=== PATIENT | male | born 1965 | race Caucasian/White ===

== ENCOUNTER 2017-05-10 12:54 | Inpatient (IN) | payer OTHER ==
--- NOTE | 2017-05-10 14:53 | EDPHY ---
H & P Stated Complaint: chronic back pain /ruq abd pain Time Seen by Provider: 05/10/17 14:52 HPI/ROS: HPI: This is a 52-year-old male who presents with Chief Complaint: chronic back pain /ruq abd pain Location: Lumbar back, right upper quadrant Quality: Pain Duration: Several days Signs and Symptoms: No bleeding, + radiation, + numbness, no weakness, no tingling, no incontinence, + decreased range of motion, no swelling, + nausea, no vomiting, + indigestion, no diarrhea, no dysuria, no hematuria, no testicular /groin pain Timing: Acute on chronic Severity: Severe Context: Patient reports that he has chronic pain syndrome including chronic back pain presents today with worsening over the last month of lower back pain. He reports that he has not been able to hold his stool during the night for the last week and feels urinary urgency. He reports he is only able to stand on both legs for 10 min at a time before both his feet get numb. His pain is concentrated in the lower back midline; constant; severe; worse with extension and nonradiating in nature. He is followed by Dr. Viraj Barrientos outpatient was advised to come to the emergency room 1 week ago but patient did not come. He had an MRI on 03/27/17 that showed L4-L5 severe central canal stenosis secondary to large left paramedian disc herniation and bilateral facet arthropathy, L1-L2 small left paramedian disc herniation, extrusion, resulting in minimal central canal stenosis. L3-L4 with mild central canal stenosis secondary to small disc herniation. He also complains of right upper quadrant pain that is nonradiating in nature accompanied by nausea. He reports that he knows this is gallbladder is he is admitted 2 years ago for gallbladder infection treated with IV antibiotics but no surgery. Use was to follow up outpatient with surgery but never did. He has a history of indigestion. Has not eaten today. Reports he has a high pain tolerance Modifying Factors: Regular medications Comment: ROS: see HPI Constitutional: No fever, no chills, no weight loss Eyes: No blurred vision Respiratory: No shortness of breath, no cough Cardiovascular: No chest pain Gastrointestinal: No nausea, no vomiting no diarrhea Genitourinary: No dysuria Extremities: No myalgias Neurologic: No weakness, no numbness Skin: No rashes Hematologic: No bruising, no bleeding MEDICAL/SURGICAL/SOCIAL HISTORY: Medical/surgical history: ERCP x2, TRAE 9th cranial nerve, R breast benign lumpectomy, L inguinal hernia repair, hypothyroid, hyperlipidemia, LEAH [end] glosso phayngeal pain/trigeminal neuralgia/herniated disc back issues Social history: . CONSTITUTIONAL: Well-developed well-nourished adult white male, nontoxic in appearance, awake and alert, no obvious distress HEENT: Atraumatic and normocephalic. Dry oral mucosa noted. NECK: supple, no midline tenderness, No meningismus. Cardiovascular: Normal S1/S2, regular rate, regular rhythm, without murmur rub or gallop. PULMONARY/CHEST: Symmetrical and nontender. no crepitus. Clear to auscultation bilaterally. Good air movement. No accessory muscle usage. ABDOMEN: Soft, nondistended, right upper quadrant moderate tenderness, no ecchymosis. No organomegaly. No peritoneal signs. PELVIC: no pain with rocking; bilateral hips flexion 125 degrees, extension 30 degrees, with no pain internal rotation and no pain external rotation. BACK: No midline tenderness, no paraspinous spasm, deep tendon reflexes 2/2, moderate pain with straight leg raise RECTAL: Good sphincter tone, light brown stool in vault, no external hemorrhoids , no fissures, no palpable masses, guaiac negative EXTREMITIES: 2/2 pulses, no deformities, no clubbing, no cyanosis or edema. NEUROLOGICAL: no focal neuro deficits. GCS 15. Light touch sensation intact. SKIN: Warm and dry, no erythema. no rash. Good capillary refill. Source: Patient Exam Limitations: No limitations - Personal History Current Tetanus/Diphtheria Vaccine: Yes - Medical/Surgical History Hx Asthma: No Hx Chronic Respiratory Disease: No Hx Diabetes: No Hx Cardiac Disease: No Hx Renal Disease: No Hx Cirrhosis: No Hx Alcoholism: No Hx HIV/AIDS: No Hx Splenectomy or Spleen Trauma: No Other PMH: ERCP x2, TRAE 9th cranial nerve, R breast benign lumpectomy, L inguinal hernia repair, hypothyroid, hyperlipidemia, LEAH [end] glosso phayngeal pain/trigeminal neuralgia/herniated disc back issues - Social History Smoking Status: Never smoked Constitutional: Initial Vital Signs Temperature (C) 36.6 C 05/10/17 13:08 Heart Rate 91 05/10/17 13:08 Respiratory Rate 18 05/10/17 13:08 Blood Pressure 122/81 H 05/10/17 13:08 O2 Sat (%) 93 05/10/17 13:08 O2 Delivery Mode Room Air Allergies/Adverse Reactions: No Known Allergies Allergy (Verified 05/10/17 13:04) Home Medications: Medication Instructions Recorded Acetaminophen [Tylenol 325mg (*)] 650 mg PO Q4 PRN #0 tab 09/14/15 Ascorbic Acid [Vitamin C 500 mg 500 mg PO DAILY 09/14/15 (*)] Aspirin [Aspirin 325 mg (*)] 325 mg PO HS 09/14/15 Benzocaine [Hurricaine [place] 57 GM 1 spr IH PRN PRN 09/14/15 (*)] Bifidobacterium Infantis [Align] 4 mg PO DAILY 09/14/15 Cyanocobalamin [Vitamin B12 (*)] 1,000 mcg PO DAILY 09/14/15 DULoxetine [Cymbalta 60 MG (*)] 60 mg PO HS 09/14/15 Ezetimibe [Zetia 10 MG (*)] 10 mg PO HS 09/14/15 Ibuprofen [Motrin (*)] 400 mg PO BID PRN 09/14/15 Ketamine Nasal [place] 100mg/Ml 1 spray IH PRN PRN 09/14/15 Levothyroxine [Synthroid 50 mcg 50 mcg PO DAILY06 09/14/15 (*)] Lubiprostone [Amitiza 24 mcg (*)] 24 mcg PO HS 09/14/15 Methadone HCl [Methadone HCl 10 mg 10 mg PO TID 09/14/15 (*)] Naproxen Sodium [Aleve 220 MG (*)] 440 mg PO DAILY PRN 09/14/15 [place]-3 Fatty Acids/Fish Oil [Fish 1 each PO BID 09/14/15 Oil 1,000 mg Capsule] Omeprazole [Prilosec 20 mg] 20 mg PO DAILY 09/14/15 Phenol [Chloraseptic spray (*)] 1 spray PO PRN PRN 09/14/15 Polyethylene Glycol 3350 [Miralax 17 gm PO DAILY PRN 09/14/15 17 gm (*)] Reservatrol 250 Mg 1 dose PO HS 09/14/15 Rosuvastatin Calcium [Crestor 20mg 20 mg PO HS 09/14/15 (*)] Suvorexant [Belsomra] 20 mg PO HS 09/14/15 Testosterone IM [Testosterone 100 mg IM SA 09/14/15 100mg/ml IM inj (*)] amLODIPine BESYLATE/BENAZEPRIL 1 cap PO HS 09/14/15 [Lotrel 5/20 mg Cap (*)] Nucynta 05/10/17 Medical Decision Making - Diagnostics Imaging Results: Imaging Impressions Abdomen Ultrasound 05/10/17 15:01 Impression: 1. Gas noted in the gallbladder, which may represent emphysematous cholecystitis , although this was present in September 2015 and is, therefore, nonspecific. Recommend surgery consult and consider additional imaging with CT abdomen or HIDA scan. Positive ultrasound Orosco sign. 2. No cholelithiasis or biliary ductal dilation. 3. Please see above findings. Findings and recommendations discussed with Emergency Department physician, Nellie Fox PA-C at 1639 hours on May 10, 2017. Final report concurs with initial preliminary interpretation. ED Course/Re-evaluation: Labs, right upper quadrant ultrasound, IV fluids, IV medications ordered Given 2 L normal saline, IV Decadron, IV fentanyl 50 mcg with mild relief Mild leukocytosis and elevated LFTs. No signs of lactic acidosis. Urinalysis shows ketones but no signs of infection Called by Radiology ultrasound shows no gallbladder wall thickening, normal common bile duct at 4 mm but there is air within the gallbladder concerning for emphysematous cholecystitis. Chart review shows similar presentation of air in the gallbladder in 2016. History of multiple ERCPs. 1645: ED decision to consult. Spoke with Dr. Wood, who requests CT abdomen and pelvis scan for further evaluation. Guaiac negative No signs of neurovascular compromise/tenting of skin/compartment syndrome/ extremities and joints examined above and below area of concern and are neurovascularly intact. 1730: Reassessed patient reports that his pain is right upper quadrant as well as lower back is now 10/10 again; requesting more pain medication. IV Fentanyl 50 mcg given 1740: Spoke with Dr. Pa Slaughter, neurosurgery, regarding patient's lower back pain that is intractable with inability to stand for long periods of time and incontinence of stool at night. He will be happy to consult on the patient. 1750: Spoke with hospitalist, Dr. Ruano, kindly agrees to admit patient to med surg and provide further care. 1800: End of shift. Signed out to Dr. Martin pending results of CT scan. Patient will likely be admitted to the hospital with Neurosurgery and general surgery consult. Differential Diagnosis: Back pain including but not limited to muscular pain, herniated disc, spine fracture, intra-abdominal causes and urinary tract infection. Abdominal pain including but not limited to appendicitis, cholecystitis, gastritis and urinary tract infection. - Data Points Laboratory Results: Laboratory Results 05/10/17 15:13 05/10/17 15:13 05/10/17 05/10/17 05/10/17 16:30 16:10 15:13 WBC RBC Hgb Hct MCV MCH MCHC RDW Plt Count MPV Neut % (Auto) Lymph % (Auto) Johnson % (Auto) Eos % (Auto) Baso % (Auto) Nucleat RBC Rel Count Absolute Neuts (auto) Absolute Lymphs (auto) Absolute Monos (auto) Absolute Eos (auto) Absolute Basos (auto) Absolute Nucleated RBC Immature Gran % Immature Gran # VBG Lactic Acid Sodium 137 mEq/L mEq/L (134-144) Potassium 3.4 mEq/L L mEq/L (3.5-5.2) Chloride 94 mEq/L L mEq/L (97-110) Carbon Dioxide 27 mEq/l mEq/l (22-31) Anion Gap 16 mEq/L mEq/L (8-16) BUN 13 mg/dL mg/dL (7-23) Creatinine 0.8 mg/dL mg/dL (0.7-1.3) Estimated GFR > 60 Glucose 94 mg/dL mg/dL (70-100) Calcium 9.5 mg/dL mg/dL (8.5-10.4) Total Bilirubin 0.7 mg/dL mg/dL (0.1-1.4) Conjugated Bilirubin 0.3 mg/dL mg/dL (0.0-0.5) Unconjugated Bilirubin 0.4 mg/dL mg/dL (0.0-1.1) AST 99 IU/L H IU/L (17-59) ALT 156 IU/L H IU/L (21-72) Alkaline Phosphatase 136 IU/L H IU/L (38-126) Total Protein 7.4 g/dL g/dL (6.3-8.2) Albumin 4.5 g/dL g/dL (3.5-5.0) Lipase 40 IU/L IU/L (23-300) Urine Color MASON Urine Appearance CLEAR Urine pH 5.0 (5.0-7.5) Ur Specific Richardson 1.025 (1.002-1.030) Urine Protein NEGATIVE (NEGATIVE) Urine Ketones TRACE H (NEGATIVE) Urine Blood NEGATIVE (NEGATIVE) Urine Nitrate NEGATIVE (NEGATIVE) Urine Bilirubin NEGATIVE (NEGATIVE) Urine Urobilinogen 2.0 EU H EU (0.2-1.0) Ur Leukocyte Esterase NEGATIVE (NEGATIVE) Urine Glucose NEGATIVE (NEGATIVE) Stool Occult Bld Scrn NEGATIVE (NEGATIVE) 05/10/17 05/10/17 15:13 15:13 WBC 10.64 10^3/uL H 10^3/uL (3.80-9.50) RBC 4.47 10^6/uL 10^6/uL (4.40-6.38) Hgb 13.6 g/dL L g/dL (13.7-17.5) Hct 39.9 % L % (40.0-51.0) MCV 89.3 fL fL (81.5-99.8) MCH 30.4 pg pg (27.9-34.1) MCHC 34.1 g/dL g/dL (32.4-36.7) RDW 13.3 % % (11.5-15.2) Plt Count 210 10^3/uL 10^3/uL (150-400) MPV 9.6 fL fL (8.7-11.7) Neut % (Auto) 81.5 % H % (39.3-74.2) Lymph % (Auto) 9.1 % L % (15.0-45.0) Johnson % (Auto) 8.6 % % (4.5-13.0) Eos % (Auto) 0.3 % L % (0.6-7.6) Baso % (Auto) 0.2 % L % (0.3-1.7) Nucleat RBC Rel Count 0.0 % % (0.0-0.2) Absolute Neuts (auto) 8.68 10^3/uL H 10^3/uL (1.70-6.50) Absolute Lymphs (auto) 0.97 10^3/uL L 10^3/uL (1.00-3.00) Absolute Monos (auto) 0.91 10^3/uL H 10^3/uL (0.30-0.80) Absolute Eos (auto) 0.03 10^3/uL 10^3/uL (0.03-0.40) Absolute Basos (auto) 0.02 10^3/uL 10^3/uL (0.02-0.10) Absolute Nucleated RBC 0.00 10^3/uL 10^3/uL (0-0.01) Immature Gran % 0.3 % % (0.0-1.1) Immature Gran # 0.03 10^3/uL 10^3/uL (0.00-0.10) VBG Lactic Acid 1.9 mmol/L mmol/L (0.7-2.1) Sodium Potassium Chloride Carbon Dioxide Anion Gap BUN Creatinine Estimated GFR Glucose Calcium Total Bilirubin Conjugated Bilirubin Unconjugated Bilirubin AST ALT Alkaline Phosphatase Total Protein Albumin Lipase Urine Color Urine Appearance Urine pH Ur Specific Richardson Urine Protein Urine Ketones Urine Blood Urine Nitrate Urine Bilirubin Urine Urobilinogen Ur Leukocyte Esterase Urine Glucose Stool Occult Bld Scrn Medications Given: Discontinued Medications Dexamethasone (Decadron Injection) 10 mg IVP EDNOW ONE Stop: 05/10/17 15:01 Last Admin: 05/10/17 15:26 Dose: 10 mg Fentanyl (Sublimaze) 50 mcg IVP EDNOW ONE Stop: 05/10/17 15:01 Last Admin: 05/10/17 15:25 Dose: 50 mcg Sodium Chloride (Ns) 1,000 mls @ 0 mls/hr IV EDNOW ONE; Wide Open PRN Reason: Protocol Stop: 05/10/17 15:01 Last Admin: 05/10/17 15:25 Dose: 1,000 mls Sodium Chloride (Ns) 1,000 mls @ 0 mls/hr IV EDNOW ONE; Wide Open PRN Reason: Protocol Stop: 05/10/17 15:01 Last Admin: 05/10/17 15:24 Dose: 1,000 mls Departure - Departure Disposition: [facility] In[facility] Acute Clinical Impression: Herniation of left side of L4-L5 intervertebral disc, Central stenosis of spinal canal, Emphysematous cholecystitis
[2017-05-10] MEDS ORDERED: DEXAMETHASONE 10 MG/ML VIAL IVP ONE (15:00)
[2017-05-10] MEDS ORDERED: NS 1,000 ML IV ONE ×2 (15:00)
[2017-05-10] MEDS ORDERED: fentaNYL 100 MCG/2 ML INJ IVP ONE ×2 (15:00→19:31)
[2017-05-10 15:21] LABS: % IMMATURE GRANULYOCYTES 0.3 % (0.0-1.1); ABSOLUTE IMMATURE GRANULOCYTES 0.03 10^3/uL (0.00-0.10); ADD DIFF? NO; ADD MORPH? NO; ADD SCAN? NO; ATYPICAL LYMPHOCYTE FLAG 0 (0-99); FRAGMENT RBC FLAG 0 (0-99); HEMATOCRIT 39.9 % (40.0-51.0); HEMOGLOBIN 13.6 g/dL (13.7-17.5); LEFT SHIFT FLG 0 (0-99); LIPEMIA HEMOLYSIS FLAG 90 (0-99); MEAN CELL HEMOGLOBIN 30.4 pg (27.9-34.1); MEAN CELL HEMOGLOBIN CONCENTR. 34.1 g/dL (32.4-36.7); MEAN CELL VOLUME 89.3 fL (81.5-99.8); MEAN PLATELET VOLUME 9.6 fL (8.7-11.7); PLATELET CLUMPS FLAG 10 (0-99); PLATELET COUNT 210 10^3/uL (150-400); RED BLOOD CELL COUNT 4.47 10^6/uL (4.40-6.38); RED CELL DISTRIBUTION WIDTH 13.3 % (11.5-15.2)
[2017-05-10 15:36] LABS: ALANINE AMINOTRANSFERASE 156 IU/L (21-72); ALBUMIN 4.5 g/dL (3.5-5.0); ALKALINE PHOSPHATASE 136 IU/L (38-126); ANION GAP 16 mEq/L (8-16); ASPARTATE AMINOTRANSFERASE 99 IU/L (17-59); BILIRUBIN,TOTAL 0.7 mg/dL (0.1-1.4); BILIRUBIN-CONJUGATED 0.3 mg/dL (0.0-0.5); BILIRUBIN-UNCONJUGATED 0.4 mg/dL (0.0-1.1); CALCIUM 9.5 mg/dL (8.5-10.4); CARBON DIOXIDE 27 mEq/l (22-31); CHLORIDE 94 mEq/L (97-110); CREATININE 0.8 mg/dL (0.7-1.3); GLOMERULAR FILTRATION RATE > 60; GLUCOSE 94 mg/dL (70-100); POTASSIUM 3.4 mEq/L (3.5-5.2); SODIUM 137 mEq/L (134-144); TOTAL PROTEIN 7.4 g/dL (6.3-8.2)
[2017-05-10 16:22] LABS: COLOR AMBER; LEUKOCYTE ESTERASE,URINE NEGATIVE (NEGATIVE); NITRITE,URINE NEGATIVE (NEGATIVE)
[2017-05-10] MEDS ORDERED: IOPAMIDOL (ISOVUE-300) 100 ML BTL ONE (17:05)
[2017-05-10] MEDS ORDERED: fentaNYL 100 MCG/2 ML INJ IVP PRN (17:42)
[2017-05-10] MEDS ORDERED: POLYETHYLENE GLYCOL 3350 17 GM PKT PO PRN (18:25)
--- NOTE | 2017-05-10 18:29 | PDCONSULT ---
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 His abdominal symptoms and imaging findings support a diagnosis of ascending cholangitis. I will admit for IV antibiotics and request a hospitalist consult. Full note to follow. Daniela Wood MD, FACS
[2017-05-10] MEDS ORDERED: fentaNYL 100 MCG/2 ML INJ ONE (19:30)
[2017-05-10] MEDS: AMPICILLIN/SULBACTAM 3 GM in NS 100 ML IV SCH (21:02)
[2017-05-10] MEDS: POTASSIUM Cl (KCl) 10 MEQ in NS 100 ML IV SCH ×2 (21:02→22:01)
[2017-05-10] MEDS ORDERED: METHADONE HCL 1 MG/ML SYR PO SCH (22:00)
[2017-05-10] MEDS: DULoxetine 60 MG CAP PO SCH (22:01)
[2017-05-10] MEDS: TAPENTADOL HCL 50 MG TAB PO SCH (22:01)
[2017-05-10] MEDS: METHADONE HCL 10 MG TAB PO SCH (22:01)
[2017-05-10] MEDS: AMLODIPINE BESYLATE 5/BENAZEPRIL 20MG 1 EACH CAP PO SCH (22:02)
[2017-05-10] MEDS: LUBIPROSTONE 24 MCG CAP PO SCH (22:02)
[2017-05-10] MEDS: EZETIMIBE 10 MG TAB PO SCH (22:02)
[2017-05-10] MEDS ORDERED: KETAMINE 100 MG/ML IH PRN (22:21)
[2017-05-10] MEDS ORDERED: PHENOL 177 ML THROAT SPRAY PO PRN (22:21)
[2017-05-10] MEDS: LR 1,000 ML IV SCH (22:21)
[2017-05-10] MEDS ORDERED: ONDANSETRON DISINTEGRATING 4 MG TAB PO PRN (22:21)
[2017-05-10] MEDS: HYDROmorphONE/DILAUDID 1 MG/ML INJ IVP PRN (22:22)
[2017-05-10] MEDS ORDERED: clonazePAM 1 MG TAB PO SCH (22:30)
[2017-05-10] MEDS ORDERED: GABAPENTIN 300 MG CAP PO SCH (22:30)
[2017-05-10] MEDS: PANTOPRAZOLE SODIUM 40 MG TAB PO SCH (22:40)
--- NOTE | 2017-05-10 23:52 | GHP ---
[f rep st] HISTORY AND PHYSICAL DATE OF ADMISSION: 05/10/2017 CHIEF COMPLAINT: Abdominal pain. HISTORY OF PRESENT ILLNESS: The patient is a 52-year-old male, who presents with worsening right upp er quadrant abdominal pain, fever, and chills. The patient has a complicated history with a complex regional pain syndrome that he has had for many years. He has undergone several endoscopic retrograd e cholangiopancreatographies and sphincterotomies by Dr. Nir Regalado for biliary disease. The res ults of these procedures are not available to review at the time of admission. The patient presented in 2015 with similar symptoms and was found to have biliary air and no evidence of obstruction, was managed with antibiotics and recovered uneventfully without surgery. After he was brought to the [facility] today, he was seen by Dr. Martin and an abdominal ultrasound was performed, which showed ai r in the gallbladder and surgical consultation was requested. PAST MEDICAL HISTORY: Significant for a remote laparoscopic left inguinal hernia repair by myself ap proximately 10 years ago. Multiple ERCPs and sphincterotomies by Dr. Regalado. He is a nonsmoker. Denies alcohol use. Patient has a history of spinal stenosis and has seen Dr. Bocanegra who recommended surgery if he develo ped incontinence or motor weakness. CURRENT MEDICATIONS: Which are managed not only by his primary care physician, Dr. Lira but by [facility] pain doctor include aspirin 325 mg at bedtime, Hurricaine spray p.r.n., Align probiotics 1 capsule p.o. q. day, vitamin B12 1000 mcg p.o. q. day, diclofenac sodium 75 mg p.o. b.i.d., ibuprofen 400 mg p.o. b.i.d., Naprosyn sodium 440 mg p.o. q. day, omega-3 fatty acids, Belsomra (suvorexant) 20 mg p.o . q.h.s., testosterone 100 mg IM q. week, amlodipine/benazepril 5/20 one p.o. q. day, Klonopin 2 mg q .h.s., clonidine 0.1 mg p.o. t.i.d., Cymbalta 60 mg p.o. q.h.s., Zetia 10 mg p.o. q.h.s., gabapentin 300 mg p.o. t.i.d., ketamine nasal spray 1 spray in each naris p.r.n., levothyroxine 50 mcg p.o. q. d ay, Amitiza 24 mcg p.o. b.i.d., melatonin/pyridoxine 1 p.o. q.h.s., methadone 10 mg p.o. three t.i.d. , Zofran 4 mg p.o. t.i.d., Protonix 40 mg p.o. q. day, phenol/Chloraseptic spray p.r.n., MiraLAX 17 g p.o. q. day, Nucynta 100 mg p.o. q.i.d., trazodone 150 mg p.o. q.h.s. ALLERGIES: The patient is allergic to bupropion, carbamazepine, corticosteroids/glucocorticoids. SOCIAL HISTORY: Patient is . He is not currently working. FAMILY HISTORY: Noncontributory. REVIEW OF SYSTEMS: Patient denies any hematemesis, melena, hematochezia. He denies history of jaund ice. There is no prior history of gallstones. Records of his endoscopic procedures are not availabl e for review at this time. No history of deep venous thrombosis. PHYSICAL EXAMINATION: GENERAL: Reveals a chronically ill-appearing, middle-aged male, who is in mod erate distress and reports withdrawal symptoms from his narcotics. VITAL SIGNS: Blood pressure is 1 20/80, pulse is 84, respirations 16, temperature is 36.8, O2 saturation is 96% on room air. HEENT: There is no scleral icterus. No adenopathy. LUNGS: Clear to auscultation. HEART: Regular in rate and rhythm. There is no tenderness to palpation of the chest wall or of the cervical or thoracic spi ne. ABDOMEN: Exquisitely tender in the right upper quadrant and along the entire right side of the abdomen. The left side of the abdomen is soft and nontender. Bowel sounds are hypoactive and presen t. There is no palpable mass, hernia, hepatosplenomegaly. RECTAL: Exam is not repeated. EXTREMITI ES: Warm and dry with symmetrical deep tendon reflexes, no pitting edema. LABORATORY STUDIES: WBC is 10.6, hemoglobin 13.6, hematocrit 39.9, platelets 210,000. Sodium was 13 7, potassium 3.4, chloride 94, bicarb 27, BUN 13, creatinine 0.8. AST 99, ALT 156, alkaline phosphat ase 136, lipase 40. TSH was 1.150. Urinalysis showed trace ketones, specific gravity was 1.025. St ool was negative for occult blood. Lactic acid was 1.9. CT scan and ultrasound reviewed and show a decompressed gallbladder with air in the gallbladder as well as air within the biliary tree. No ston es were identified. No common bile duct dilatation is observed. The pancreas appears unremarkable. There was no free fluid. No free air. No pathologic calcifications. IMPRESSION: 1. Pneumobilia with elevation of liver enzymes and alkaline phosphatase associated with mild leukocy tosis. Clinical findings are compatible with ascending cholangitis. 2. Chronic regional pain syndrome, on multiple medications. 3. Status post laparoscopic left inguinal hernia repair without evidence of recurrence. 4. Multiple allergies. 5. Mild hypertension. RECOMMENDATIONS: I discussed the findings with the patient. Recommended admission for intravenous f luids, antibiotics, and observation. Laparoscopic cholecystectomy could be performed and may provide some relief of his symptoms, though would not reduce the future chances of ascending cholangitis. T he patient would like to avoid surgery at this time if possible and I will continue to monitor his sy mptoms. If he shows evidence of worsening sepsis despite intravenous antibiotics, would reconsider s urgery at this time. I have requested hospitalist consultation. Dr. Karime Ruano will be seeing th e patient to assist in the management of his complex regional pain syndrome. Copy requested to: Dr. Nir Regalado /[id number]/MODL
[2017-05-11] MEDS ORDERED: fentaNYL 100 MCG/2 ML INJ IVP ONE (00:12)
[2017-05-11] MEDS: AMPICILLIN/SULBACTAM 3 GM in NS 100 ML IV SCH ×4 (02:46→21:40)
[2017-05-11] MEDS: HYDROmorphONE/DILAUDID 1 MG/ML INJ IVP PRN ×4 (02:46→20:27)
--- NOTE | 2017-05-11 04:34 | GCON ---
[f rep st] CONSULTATION MEDICINE CONSULTATION CHIEF COMPLAINT: Right upper quadrant abdominal pain. REASON FOR CONSULTATION: Patient was admitted by the Surgery Service and Medicine has been consulted to assist with his chronic pain management. HISTORY OF PRESENT ILLNESS: The patient is a 52-year-old male with a history of chronic regional pain syndrome and continuous opioid dependence as well as chronic low back pain and hypothyroidism who presents to the emergency department with right upper quadrant pain. He has had several ERCPs in the past for gallbladder sludge. He has been previously admitted with similar problems, most recently in September of 2015. He states he had increasing right upper quadrant pain which began about 3 days ago. Today, the pain became more severe and he developed nausea but denies vomiting. He has had no diarrhea. His CRPS is localized to the entire right side of his body. He says he always gets a burning pain in his stomach after eating, so it is hard to assess if he has increased right upper quadrant pain related to meals. He denies fevers or chills. In the emergency department, an abdominal ultrasound showed gas in the gallbladder possibly representing emphysematous cholecystitis though it was noted to be unchanged from September 2015. He then underwent a CT abdomen and pelvis which showed minimal pneumobilia and minimal gas in the gallbladder and common bile duct but no evidence of obstruction. A Surgery consult was obtained in the emergency department and the patient is admitted for IV antibiotics for presumed cholangitis. PAST MEDICAL/SURGICAL HISTORY: 1. Chronic pain secondary to chronic regional pain syndrome. 2. Chronic continuous opioid dependence, on methadone and Nucynta. 3. History of trigeminal neuralgia. 4. History of glossopharyngeal neuralgia. 5. Hypothyroidism. 6. Hyperlipidemia. 7. History of gallbladder sludge with multiple ERCPs. 8. Inguinal hernia repair. 9. Decompression of the 9th cranial nerve. MEDICATIONS: Please see IDOMOTICS for completed outpatient medication list. ALLERGIES: No known drug allergies. SOCIAL HISTORY: The patient lives independently with his . He denies alcohol or tobacco use. FAMILY HISTORY: Reviewed and noncontributory. REVIEW OF SYSTEMS: A 10-point review of systems was performed and is negative as per HPI. OBJECTIVE: VITAL SIGNS: Temperature is 36.6, blood pressure 136/95, heart rate 96, respiratory rate 18, he is 94% on room air. GENERAL: The patient is awake, alert, oriented, in no acute distress. HEENT: Head is atraumatic, normocephalic. Pupils equal, round, and reactive to light. Extraocular movements intact. Oropharynx is clear. Mucous membranes are dry. NECK: Supple. There is no JVD. HEART: Regular rate and rhythm. LUNGS: Clear to auscultation bilaterally. ABDOMEN: Soft, nondistended. He has mild right upper quadrant tenderness to palpation with no peritoneal signs. No rebound, rigidity or guarding. EXTREMITIES: Without cyanosis, clubbing, or edema. NEUROLOGIC: Grossly nonfocal. LABORATORY DATA: CBC reveals a white blood cell count of 10.6 with 81.5% neutrophils. Lactic acid is 1.9. Complete metabolic panel is remarkable for a potassium of 3.4, chloride 94, AST 99, ALT 156, alkaline phosphatase 136. Lipase is normal. Urinalysis is negative. Abdomen ultrasound and CT are performed with results described above. ASSESSMENT AND PLAN: The patient is a 52-year-old male with history of chronic regional pain syndrome with chronic continuous opioid dependence and acute on chronic right upper quadrant abdominal pain who is admitted to the hospital for presumed cholangitis. 1. Ascending cholangitis. The patient has had multiple prior ERCPs and this likely explains his minimal pneumobilia. I discussed the case with Dr. Lazar, General Surgery, who will admit pt for IV antibiotics and defer surgery, though it is possible he may require a cholecystectomy. 2. Chronic regional pain syndrome with chronic continuous opioid dependence. Will continue patient on his outpatient methadone, Nucynta and ketamine nasal spray. Add p.r.n. IV Dilaudid given the acute nature of his chronic pain. It sounds as though he has had his opioid doses reduced (used to use 1,600 mcg fentanyl TID per his report). Cont prn Clonidine for withdrawal symptoms. 3. Multi-level lumbar disc herniation with canal stensos. Continue Gabapentin , will up-titrate dose. Neurosurgery to consult, saw pt in ED. 4. Hypothyroidism. Check a TSH and plan to continue his levothyroxine. 5. Hypertension. We will continue his amlodipine and p.r.n. clonidine. 6. Depression and anxiety. Continue Cymbalta. 7. Deep venous thrombosis prophylaxis. The patient is moderate risk. We will give Lovenox. CODE STATUS: Patient is full code. DISPOSITION: Patient is admitted to inpatient status. I anticipate he will require greater than 48 hours hospitalization for ongoing management of his acute cholangitis. /[id number]/MODL [facility]
[2017-05-11 06:22] LABS: % IMMATURE GRANULYOCYTES 0.4 % (0.0-1.1); ABSOLUTE IMMATURE GRANULOCYTES 0.03 10^3/uL (0.00-0.10); ADD DIFF? NO; ADD MORPH? NO; ADD SCAN? NO; ATYPICAL LYMPHOCYTE FLAG 0 (0-99); FRAGMENT RBC FLAG 0 (0-99); HEMATOCRIT 33.8 % (40.0-51.0); HEMOGLOBIN 11.3 g/dL (13.7-17.5); LEFT SHIFT FLG 0 (0-99); LIPEMIA HEMOLYSIS FLAG 80 (0-99); MEAN CELL HEMOGLOBIN 30.1 pg (27.9-34.1); MEAN CELL HEMOGLOBIN CONCENTR. 33.4 g/dL (32.4-36.7); MEAN CELL VOLUME 90.1 fL (81.5-99.8); PLATELET CLUMPS FLAG 0 (0-99); PLATELET COUNT 180 10^3/uL (150-400); RED BLOOD CELL COUNT 3.75 10^6/uL (4.40-6.38); RED CELL DISTRIBUTION WIDTH 13.3 % (11.5-15.2)
[2017-05-11 06:42] LABS: ALANINE AMINOTRANSFERASE 116 IU/L (21-72); ALBUMIN 3.1 g/dL (3.5-5.0); ALKALINE PHOSPHATASE 96 IU/L (38-126); AMYLASE 32 IU/L (30-110); ANION GAP 10 mEq/L (8-16); ASPARTATE AMINOTRANSFERASE 68 IU/L (17-59); BILIRUBIN,TOTAL 0.2 mg/dL (0.1-1.4); BILIRUBIN-UNCONJUGATED 0.2 mg/dL (0.0-1.1); CALCIUM 8.9 mg/dL (8.5-10.4); CARBON DIOXIDE 27 mEq/l (22-31); CHLORIDE 103 mEq/L (97-110); CREATININE 0.7 mg/dL (0.7-1.3); GLOMERULAR FILTRATION RATE > 60; GLUCOSE 113 mg/dL (70-100); POTASSIUM 4.5 mEq/L (3.5-5.2); SODIUM 140 mEq/L (134-144); TOTAL PROTEIN 5.3 g/dL (6.3-8.2)
[2017-05-11] MEDS: LEVOTHYROXINE 50 MCG TAB PO SCH (06:44)
[2017-05-11] MEDS: TAPENTADOL HCL 50 MG TAB PO SCH ×4 (06:44→20:24)
[2017-05-11] MEDS ORDERED: KETOROLAC 30 MG/1 ML SDV IVP ONE (07:35)
--- NOTE | 2017-05-11 07:45 | SOAPPROG ---
NELI Progress Note Assessment/Plan: Assessment:1. ascending cholangitis, clinically improving with IV Unasyn I discussed the Ej the anatomy and physiology of the biliary tract during a 30 minute discussion of his symptoms using anatomic drawings. Removal of the gallbladder alone will not reduce the future risk of cholangitis. Whether or not it would improve his pain would remain to be seen after surgery. There is no urgency to the decision for surgery at this time 2. chronic regional pain syndrome Ej is concerned that he will no longer have a pain doctor after today and is asking for more pain medications I ordered Toradol as he has not received NSAIDS since admission and will discuss with his PCP Dr. Lira and the Hospitalist service. Case management consult would be appropriate 05/11/17 07:40 Subjective: severe pain, wants more pain meds nocturnal stool incontinence Objective: Vital Signs Temp Pulse Resp BP Pulse Ox 36.7 C 69 20 98/62 L 98 05/11/17 00:00 05/11/17 04:00 05/11/17 04:00 05/11/17 04:00 05/11/17 04:00 Laboratory Results 05/11/17 05:30 05/11/17 05:30 05/10/17 05/11/17 05/12/17 05:59 05:59 05:59 Intake Total 2000 Balance 1999 - Pending Discharge Pending Discharge Within 24 Hours: Yes Pending Discharge Date: 05/12/17 Pending Discharge Time: 11:00 Physical Exam - Physical Exam General Appearance: moderate distress Abdomen: normal bowel sounds, soft, other (diffusely tender right side with voluntary guarding) Male Genitalia: deferred Rectal: decreased tone, other (normal sphincter/sensation intact) Neuro/Psych: alert, depressed affect ICD10 Worksheet Patient Problems: Problems Problem Status Onset Central stenosis of spinal canal Acute Emphysematous cholecystitis Acute Herniation of left side of L4-L5 intervertebral disc Acute Abdominal pain Acute Fever Acute Tachycardia Acute Transaminitis Acute
[2017-05-11] MEDS: GABAPENTIN 300 MG CAP PO SCH ×2 (08:01→14:04)
[2017-05-11] MEDS: PANTOPRAZOLE SODIUM 40 MG TAB PO SCH (08:27)
[2017-05-11] MEDS: METHADONE HCL 10 MG TAB PO SCH ×3 (08:27→23:19)
[2017-05-11] MEDS: ENOXAPARIN 40 MG/0.4 ML SYR SC SCH (08:28)
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
[2017-05-11] MEDS: LUBIPROSTONE 24 MCG CAP PO SCH ×2 (09:36→20:26)
--- NOTE | 2017-05-11 10:14 | ASMTCMCOM ---
CM Note CM Note Notes: Pt. is a 52-year-old man admitted with chronic back pain and right upper quadrant abdominal pain. Pt. w/ hx. complex regional pain syndrome. On nasal Ketamine and methadone for pain per hospitalist. Per hospitalist, Pt. critical of the [facility] and Pt. is not accepting his own responsibility for his care. Hospitalist asked SWer not to speak w/ Pt. Per hospitalist, Pt. states he will "find [my] own pain solutions in [place]". Anticipate independent d/c when ready. Date Signed: 05/11/2017 10:13 AM Electronically Signed By:Alie Rivero LCSW
--- NOTE | 2017-05-11 12:16 | PDMN ---
Medical Necessity Medical necessity: Pt meets INPT criteria per MD and [facility] Gallbladder or Bile Duct Inflammation (est. LOS >2 MN for ongoing eval/mgmt of ascending cholangitis with hx multiple prior ERCPs, elevated liver enzymes, chronic regional pain syndrome, multi-level lumbar disc herniation with canal stenosis per H&P and progress note).
--- NOTE | 2017-05-11 12:29 | HOSPPROG ---
Hospitalist Progress Note Assessment/Plan: 52y male with c/o pain. First encounter, chart reviewed. D/W MARTÍNEZ. Assessment: #ascending cholangitis improving with IV Unasyn cont supportive care Plan per surgery # chronic regional pain syndrome on Methadone and ketamine will not receive pain med prescriptions at time of DC questioned about follow up pt states he can find a pain doctor after DC educated about withdrawl encouraged to follow up with current pain will not add more pain meds to his profile pt says PCP Dr. Lira will give him prescriptions reviewed with SW #Spine stenosis appreciate NSG consult no intervention at this time # Hypothyroid cont home meds # Dispo likely 1-2 days per surgery recs Subjective: C/O pain. Aggitated. Objective: Vital Signs Temp Pulse Resp BP Pulse Ox 36.5 C 74 16 95/55 L 98 05/11/17 11:15 05/11/17 11:15 05/11/17 11:15 05/11/17 11:15 05/11/17 11:15 Laboratory Results 05/11/17 05:30 05/11/17 05:30 05/10/17 05/11/17 05/12/17 05:59 05:59 05:59 Intake Total 2000 Balance 1999 - Physical Exam Constitutional: no apparent distress, appears nourished, uncomfortable Eyes: PERRL, anicteric sclera, EOMI Ears, Nose, Mouth, Throat: moist mucous membranes, hearing normal, ears appear normal Cardiovascular: regular rate and rhythym, No JVD, No edema Respiratory: no respiratory distress, no rales or rhonchi, reduced air movement Gastrointestinal: normoactive bowel sounds, tenderness, No ascites Skin: warm, normal color, No erythema Musculoskeletal: normal joint ROM, no joint effusions, generalized weakness Neurologic: AAOx3 Psychiatric: not encephalopathic, anxious, poor insight, poor judgement ICD10 Worksheet Patient Problems: Problems Problem Status Onset Transaminitis Acute Fever Acute Tachycardia Acute Abdominal pain Acute Herniation of left side of L4-L5 intervertebral disc Acute Central stenosis of spinal canal Acute Emphysematous cholecystitis Acute
[2017-05-11] MEDS: LR 1,000 ML IV SCH (16:57)
[2017-05-11] MEDS: KETOROLAC 30 MG/1 ML SDV IVP PRN ×2 (17:39→23:27)
[2017-05-11] MEDS: EZETIMIBE 10 MG TAB PO SCH (20:25)
[2017-05-11] MEDS: DULoxetine 60 MG CAP PO SCH (20:25)
[2017-05-11] MEDS ORDERED: GABAPENTIN 300 MG CAP PO SCH (21:00)
[2017-05-11] MEDS ORDERED: RESERVATROL PO SCH (21:00)
[2017-05-11] MEDS ORDERED: clonazePAM 1 MG TAB PO SCH (21:00)
[2017-05-11] MEDS: AMLODIPINE BESYLATE 5/BENAZEPRIL 20MG 1 EACH CAP PO SCH (21:17)
[2017-05-12] MEDS: HYDROmorphONE/DILAUDID 1 MG/ML INJ IVP PRN ×2 (00:49→06:04)
[2017-05-12] MEDS: AMPICILLIN/SULBACTAM 3 GM in NS 100 ML IV SCH (03:35)
[2017-05-12 05:16] LABS: BILIRUBIN,TOTAL 0.2 mg/dL (0.1-1.4); BILIRUBIN-CONJUGATED 0.1 mg/dL (0.0-0.5); BILIRUBIN-UNCONJUGATED 0.1 mg/dL (0.0-1.1); TOTAL PROTEIN 5.1 g/dL (6.3-8.2)
[2017-05-12] MEDS: TAPENTADOL HCL 50 MG TAB PO SCH (06:04)
[2017-05-12] MEDS: LEVOTHYROXINE 50 MCG TAB PO SCH (06:04)
[2017-05-12 06:07] VITALS: O2SAT 99
[2017-05-12 07:39] VITALS: BP 101/64; PULSE 85; RESP 14; TEMP 97.4
[2017-05-12] MEDS: GABAPENTIN 300 MG CAP PO SCH (08:27)
[2017-05-12] MEDS: METHADONE HCL 10 MG TAB PO SCH (08:27)
[2017-05-12] MEDS: PANTOPRAZOLE SODIUM 40 MG TAB PO SCH (08:28)
[2017-05-12] MEDS: KETOROLAC 30 MG/1 ML SDV IVP PRN (08:28)
[2017-05-12] MEDS: ENOXAPARIN 40 MG/0.4 ML SYR SC SCH (08:28)
[2017-05-12] MEDS ORDERED: AMOXICILLIN/CLAVULANATE POT 875/125 MG TAB PO SCH (09:00)
[2017-05-12] MEDS: LUBIPROSTONE 24 MCG CAP PO SCH (09:03)
--- NOTE | 2017-05-12 09:27 | PDDCSUM ---
Discharge Summary Discharge Summary: Ej remains in pain but is afebrile and holding down liquids adequately. His Lfts continue to trend towards normal/his abdomen is soft and without distention. He has no focal RUQ tenderness. He has an appointment with a pain specialist at 11:15 and would like to be discharged this morning. Imp: ascending cholangitis-clinically improving chronic regional pain syndrome with narcotic dependence spinal stenosis Rec: oral Augmentin x 10 days FU as outpatient return to hospital for emesis/fever/jaundice FU my office [address] Bocanegra one month Daniela Wood MD, FACS
--- NOTE | 2017-05-12 11:27 | ASDISCHSUM ---
Discharge Information Plan Status:Home with No Needs Medically Cleared to Leave: Discharge Date:05/12/2017 10:31 AM CM D/C Disposition:Home, Routine, Self-Care ADT D/C Disposition:Home, Routine, Self-Care Projected Discharge Date:05/12/2017 10:31 AM Transportation at D/C: Discharge Delay Reason: Follow-Up Date:05/12/2017 10:31 AM Discharge Slot: Final Diagnosis: Placement Information Patient Contact Information Contact Name:OCREEMADELINE Relationship: Address:[address] City:[place] Alternate Phone: [facility] Code:[place] [address] Email: Financial Information Financial Class:HMO and PPO Plans Primary Plan Desc:[facility] Primary Plan Number:[id number] Secondary Plan Desc: Secondary Plan Number: Assessment Information LACE LACE Acuity / Level of Care Answers: Was the patient admitted to hospital via the emergency department? Yes: Emergency dept visits in Answers: 1 last 6 months Score: 4 Date Signed: 05/10/2017 06:20 PM Electronically Signed By:Simi Moeller RN [facility] CM Progress Note CM Note CM Note Notes: Pt. is a 52-year-old man admitted with chronic back pain and right upper quadrant abdominal pain. Pt. w/ hx. complex regional pain syndrome. On nasal Ketamine and methadone for pain per hospitalist. Per hospitalist, Pt. critical of the [facility] and Pt. is not accepting his own responsibility for his care. Hospitalist asked SWer not to speak w/ Pt. Per hospitalist, Pt. states he will "find [my] own pain solutions in [place]". Anticipate independent d/c when ready. Date Signed: 05/11/2017 10:13 AM Electronically Signed By:Alie Rivero LCSW Case Management Discharge Plan Note Case Management Discharge Discharge Order Complete? Answers: Yes Patient to Obtain Answers: Independently Medications Discharge Comments Notes: Pt. d/c'ed independently today. Intervention Information
--- NOTE | 2017-05-12 13:32 | HOSPPROG ---
Hospitalist Progress Note Assessment/Plan: 52y male with c/o pain. First encounter, chart reviewed. D/W MARTÍNEZ. Assessment: #ascending cholangitis improving with IV Unasyn # chronic regional pain syndrome on Methadone and ketamine will not receive pain med prescriptions at time of DC will follow up with current pain Dr. today pt says PCP Dr. Lira reviewed with SW #Spine stenosis appreciate NSG consult no intervention at this time # Hypothyroid cont home meds # Dispo home today Subjective: Still c/o abd pain. Objective: Vital Signs Temp Pulse Resp BP Pulse Ox 36.3 C 85 14 101/64 99 05/12/17 07:36 05/12/17 07:36 05/12/17 07:36 05/12/17 07:36 05/12/17 07:36 Laboratory Results 05/11/17 05:30 05/11/17 05:30 05/11/17 05/12/17 05/13/17 05:59 05:59 05:59 Intake Total 1999 1500 Balance 1999 1500 - Physical Exam Constitutional: appears nourished, chronically ill appearing Eyes: PERRL, anicteric sclera Ears, Nose, Mouth, Throat: moist mucous membranes, hearing normal Cardiovascular: No JVD, No edema Respiratory: no respiratory distress, reduced air movement Gastrointestinal: tenderness, No ascites Skin: warm, normal color Musculoskeletal: normal joint ROM, no joint effusions Neurologic: AAOx3 Psychiatric: not anxious, poor insight, poor judgement ICD10 Worksheet Patient Problems: Problems Problem Status Onset Transaminitis Acute Fever Acute Tachycardia Acute Abdominal pain Acute Herniation of left side of L4-L5 intervertebral disc Acute Central stenosis of spinal canal Acute Emphysematous cholecystitis Acute
[2017-05-12] MEDS ORDERED: SUVOREXANT 20 MG PO SCH (21:00)
== END 2017-05-12 10:31 | disposition home or self-care (01) | DRG 445 ==
LOC: F3E 19:45
PROVIDERS: ADMIT Hospitalist; ATTEND Surgery
DX: K83.0 Cholangitis (principal); F11.20 Opioid dependence, uncomplicated; G89.4 Chronic pain syndrome; M51.26 Other intervertebral disc displacement, lumbar region; M48.061 Spinal stenosis, lumbar region without neurogenic claudication; R15.9 Full incontinence of feces; E03.9 Hypothyroidism, unspecified; E78.5 Hyperlipidemia, unspecified; G50.0 Trigeminal neuralgia; G52.1 Disorders of glossopharyngeal nerve; F41.8 Other specified anxiety disorders; G47.33 Obstructive sleep apnea (adult) (pediatric)
CPT/HCPCS: 96374; J0295; J1100; J1170; J1650; J1885; J3010; Q9967

== ENCOUNTER 2017-06-09 20:14 | Observation (INO) | payer OTHER ==
[2017-06-09] MEDS ORDERED: HYDROmorphONE/DILAUDID 1 MG/ML INJ IVP ONE (20:47)
[2017-06-09] MEDS ORDERED: ONDANSETRON 4 MG/2 ML VIAL IVP ONE (20:47)
--- NOTE | 2017-06-09 20:48 | EDPHY ---
General - History Smoking Status: Never smoked Narrative: CHIEF COMPLAINT: Right upper quadrant abdominal pain HISTORY OF PRESENT ILLNESS: Patient presents with complaints of right upper quadrant abdominal pain. This started earlier today. Severe, 10/10 pain in the right upper quadrant. Does not radiate. Minimal improvement with rest and lying down. Worsens when twisting to his left. No fever or chills. Some nausea but no vomiting. No diarrhea constipation. Patient was seen here for the same complaint on the 10 of May. He was admitted with diagnosis of ascending cholangitis. He was discharged home on May 12 without oral antibiotics for remaining 4 days. He said his symptoms did improve to near resolution after that until the recent return of pain. He said that he is unable to follow up with the surgeon or primary care physician "because they're out partying or something." He says that he contacted their office today but was unable to be seen. REVIEW OF SYSTEMS: Ten systems reviewed and are negative unless otherwise noted in the HPI PCP: mirror specialist SPECIALISTS: Dr. Wood, general surgery PAST MEDICAL HISTORY: Chronic regional pain syndrome, glossopharyngeal neuralgia, atypical trigeminal neuralgia PAST SURGICAL HISTORY: None SOCIAL HISTORY: Nonsmoker. No alcohol or drug use FAMILY HISTORY: Noncontributory EXAMINATION General Appearance: Alert, no distress Head: normocephalic, atraumatic Eyes: Pupils equal and round, no conjunctival pallor or injection ENT, Mouth: Mucous membranes moist. Airway is widely patent Neck: Normal inspection, supple, non-tender Respiratory: Lungs are clear to auscultation Cardiovascular: Regular rate and rhythm. No murmur. Gastrointestinal: Abdomen is soft and nondistended. There is significant tenderness in right upper quadrant. There is guarding of the right upper quadrant. No tympany. No right CVA tenderness. Back: non-tender, no bony abnormalities Neurological: GCS 15. A&O, nonfocal Skin: Warm and dry, no rash. No petechiae or purpura Extremities: Nontender, no pedal edema. The extremities spontaneously and symmetrically. Psychiatric: Mood and affect normal DIFFERENTIAL DIAGNOSES: Including but not limited to ascending cholangitis, sepsis, cholelithiasis, cholecystitis, colitis MDM: 8:48 p.m. Recurrence of right upper quadrant abdominal pain that is described as the same as when he had ascending cholangitis 1 month ago. He is borderline febrile but not tachycardic or tachypneic. Laboratory studies have been ordered. I discussed with Dr. Simpson, he would like the patient have blood cultures and lactic acid drawn. This has been ordered. I have also ordered pain medication IV fluid. Ultrasound of the right upper quadrant ordered. 9:30 p.m. Case discussed with Dr. Simpson. He has evaluated the patient. He feels the patient will need a CT scan of the abdomen pelvis if the ultrasound is unremarkable. Plans for admission to the hospital. 9:50 p.m. Case discussed with radiologist Dr. Peña. Ultrasound reveals sludge but no pneumobilia or thickening of the wall. Unremarkable exam. I have ordered CT scan of the abdomen and pelvis. Further pain medication has been administered. 10:50 p.m. Notified by radiologist Dr. Peña. CT scan of the abdomen pelvis does not reveal any acute findings. 10:55 p.m. I re-evaluated the patient. His pain is not improved despite multiple rounds of pain medication and intranasal ketamine. Patient will not be able to be discharged home due to intractable pain. I discussed with Dr. Simpson and he agrees with the plan. I will contact the hospitalist for admission. 11:00 p.m. Discussed with hospitalist Dr. Lundy. She will admit the patient to her service. She requested observation bed. He is admitted stable condition. SUPERVISION: Patient was evaluated and examined in conjunction with my secondary supervising physician as documented. We have both examined the patient. (Foreign Mendoza) Medical Decision Making: PHYSICIAN DOCUMENTATION: The patient was evaluated and managed by the Physician Water Safety Teacher and myself. I have reviewed the chart and agree with the findings and plan of care as documented. In addition, I examined the patient myself at 2145. History confirmed as the patient says he feels just like his previous hospitalization for ascending cholangitis. Physical findings as follows: Right upper quadrant abdominal tenderness. Plan for CT scanning, labs, IV pain medication. After lab and imaging, does not appear to have cholangitis or acute infection but has intractable pain, admit for symptom control and further evaluation. I am the secondary supervising physician. (Nelson Simpson) - Diagnostics Imaging Results: Imaging Impressions Abdomen Ultrasound 06/09/17 20:47 Impression: Mild sludge in the gallbladder. No evidence for cholelithiasis or cholecystitis. Results called and discussed with Foreign Mendoza PA-C, on June 09, [address] 06/09/17 21:52 Impression: No evidence for acute intraabdominal or pelvic abnormality. Chronic findings, as above. Results called and discussed with Foreign Mendoza PA-C, on June 09, 2017 at 2252. - Objective Vital Signs: Initial Vital Signs Temperature (C) 37.9 C 06/09/17 20:31 Heart Rate 96 06/09/17 20:31 Respiratory Rate 18 06/09/17 20:31 Blood Pressure 150/95 H 06/09/17 20:31 O2 Sat (%) 93 06/09/17 20:31 O2 Delivery Mode Room Air O2 (L/minute) 2 Allergies/Adverse Reactions: bupropion [From Wellbutrin] Allergy (Intermediate, Unverified 05/10/17 22:25) carbamazepine [From Tegretol] Allergy (Intermediate, Unverified 05/10/17 22:25) Corticosteroids (Glucocorticoids) Allergy (Unknown, Unverified 05/10/17 22:25) Home Medications: Medication Instructions Recorded Ascorbic Acid [Vitamin C 500 mg 500 mg PO DAILY 09/14/15 (*)] Aspirin [Aspirin 325 mg (*)] 325 mg PO HS 09/14/15 Benzocaine [Hurricaine [place] 57 GM 1 spr IH PRN PRN 09/14/15 (*)] Cyanocobalamin [Vitamin B12 (*)] 1,000 mcg PO DAILY 09/14/15 DULoxetine [Cymbalta 60 MG (*)] 60 mg PO HS 09/14/15 Ezetimibe [Zetia 10 MG (*)] 10 mg PO HS 09/14/15 Ketamine Nasal [place] 100mg/Ml 1 spray IH PRN PRN 09/14/15 Levothyroxine [Synthroid 50 mcg 50 mcg PO DAILY06 09/14/15 (*)] Methadone HCl [Methadone HCl 10 mg 10 mg PO TID 09/14/15 (*)] [place]-3 Fatty Acids/Fish Oil [Fish 2,000 each PO BID 09/14/15 Oil 1,000 mg Capsule] Phenol [Chloraseptic spray (*)] 1 spray PO PRN PRN 09/14/15 Polyethylene Glycol 3350 [Miralax 17 gm PO DAILY PRN 09/14/15 17 gm (*)] Reservatrol 250 Mg 1 dose PO HS 09/14/15 Testosterone IM [Testosterone 100 mg IM SA 09/14/15 100mg/ml IM inj (*)] amLODIPine BESYLATE/BENAZEPRIL 1 cap PO DAILY 09/14/15 [Lotrel 5/20 mg Cap (*)] Diclofenac Sodium [Voltaren 75 MG 75 mg PO BID 05/10/17 (*)] Gabapentin [Neurontin 300 MG (*)] 300 mg PO TID 05/10/17 Lubiprostone [Amitiza 24 mcg (*)] 24 mcg PO BID 05/10/17 Melatonin/Pyridoxine HCl (B6) 1 each PO HS 05/10/17 [Melatonin 10 mg Tablet] Ondansetron Odt [Zofran Odt 4 mg 4 mg PO TID PRN 05/10/17 (*)] Pantoprazole Sodium [Protonix 40mg 40 mg PO DAILY 05/10/17 (*)] Tapentadol HCl [Nucynta] 100 mg PO QID 05/10/17 clonazePAM [Klonopin] 2 mg PO HS 05/10/17 traZODone [traZODone 150MG (*)] 150 mg PO HS 05/10/17 Gabapentin [Neurontin 300 MG (*)] 600 mg PO HS cap 05/12/17 Laboratory Results: Laboratory Results 06/09/17 20:43 06/09/17 20:43 06/09/17 06/09/17 06/09/17 20:43 20:43 20:43 WBC 7.35 10^3/uL 10^3/uL (3.80-9.50) RBC 4.74 10^6/uL 10^6/uL (4.40-6.38) Hgb 14.8 g/dL g/dL (13.7-17.5) Hct 42.1 % % (40.0-51.0) MCV 88.8 fL fL (81.5-99.8) MCH 31.2 pg pg (27.9-34.1) MCHC 35.2 g/dL g/dL (32.4-36.7) RDW 13.2 % % (11.5-15.2) Plt Count 233 10^3/uL 10^3/uL (150-400) MPV 9.6 fL fL (8.7-11.7) Neut % (Auto) 77.3 % H % (39.3-74.2) Lymph % (Auto) 14.1 % L % (15.0-45.0) [place] % (Auto) 8.4 % % (4.5-13.0) Eos % (Auto) 0.0 % L % (0.6-7.6) Baso % (Auto) 0.1 % L % (0.3-1.7) Nucleat RBC Rel Count 0.0 % % (0.0-0.2) Absolute Neuts (auto) 5.67 10^3/uL 10^3/uL (1.70-6.50) Absolute Lymphs (auto) 1.04 10^3/uL 10^3/uL (1.00-3.00) Absolute Monos (auto) 0.62 10^3/uL 10^3/uL (0.30-0.80) Absolute Eos (auto) 0.00 10^3/uL L 10^3/uL (0.03-0.40) Absolute Basos (auto) 0.01 10^3/uL L 10^3/uL (0.02-0.10) Absolute Nucleated RBC 0.00 10^3/uL 10^3/uL (0-0.01) Immature Gran % 0.1 % % (0.0-1.1) Immature Gran # 0.01 10^3/uL 10^3/uL (0.00-0.10) VBG Lactic Acid 1.3 mmol/L mmol/L (0.7-2.1) Sodium 142 mEq/L mEq/L (134-144) Potassium 4.3 mEq/L mEq/L (3.5-5.2) Chloride 103 mEq/L mEq/L (97-110) Carbon Dioxide 23 mEq/l mEq/l (22-31) Anion Gap 16 mEq/L mEq/L (8-16) BUN 8 mg/dL mg/dL (7-23) Creatinine 0.9 mg/dL mg/dL (0.7-1.3) Estimated GFR > 60 Glucose 103 mg/dL H mg/dL (70-100) Calcium 9.8 mg/dL mg/dL (8.5-10.4) Total Bilirubin 0.8 mg/dL mg/dL (0.1-1.4) Conjugated Bilirubin 0.4 mg/dL mg/dL (0.0-0.5) Unconjugated Bilirubin 0.4 mg/dL mg/dL (0.0-1.1) AST 27 IU/L IU/L (17-59) ALT 37 IU/L IU/L (21-72) Alkaline Phosphatase 78 IU/L IU/L (38-126) Total Protein 7.5 g/dL g/dL (6.3-8.2) Albumin 4.7 g/dL g/dL (3.5-5.0) Lipase 52 IU/L IU/L (23-300) Medications Given: Hydrocodone Bitart/Acetaminophen ([place] 5/325) 1 - 2 tab PO Q4HRS PRN PRN Reason: Pain, Moderate Able to Take PO Stop: 06/20/17 00:24 Last Admin: 06/10/17 01:57 Dose: 2 tab Gabapentin (Neurontin) 600 mg PO HS [facility] Stop: 12/07/17 03:59 Last Admin: 06/10/17 04:36 Dose: 600 mg Hydromorphone HCl (Dilaudid) 0.5 - 1 mg IVP Q4HRS PRN PRN Reason: Pain, Severe Unable to Take PO Stop: 06/20/17 00:24 Last Admin: 06/10/17 01:57 Dose: 1 mg Lactated Ringer's (Lr) 1,000 mls @ 100 mls/hr IV CONT [facility] Stop: 12/07/17 01:29 Last Admin: 06/10/17 02:04 Dose: 1,000 mls Lorazepam (Ativan) 0.5 - 1 mg PO Q8HRS PRN PRN Reason: Anxiety, Able to Take PO Stop: 12/07/17 00:24 Last Admin: 06/10/17 01:58 Dose: 1 mg Lubiprostone (Amitiza) 24 mcg PO BID [facility] Stop: 12/07/17 03:44 Last Admin: 06/10/17 04:36 Dose: 24 mcg Methadone HCl (Methadone Hcl) 10 mg PO QID [facility] Stop: 06/20/17 03:44 Last Admin: 06/10/17 06:23 Dose: Not Given Discontinued Medications Hydromorphone HCl (Dilaudid) 1 mg IVP EDNOW ONE Stop: 06/09/17 20:48 Last Admin: 06/09/17 21:08 Dose: 1 mg Sodium Chloride (Ns) 1,000 mls @ 0 mls/hr IV EDNOW ONE; Wide Open PRN Reason: Protocol Stop: 06/09/17 20:58 Last Admin: 06/09/17 21:08 Dose: 1,000 mls Lidocaine (Lidocaine 2% Jelly) 1 oswaldo TP EDNOW ONE Stop: 06/09/17 23:08 Last Admin: 06/09/17 23:09 Dose: 15 ml Ondansetron HCl (Zofran) 4 mg IVP EDNOW ONE Stop: 06/09/17 20:48 Last Admin: 06/09/17 21:08 Dose: 4 mg Departure - Departure Disposition: [facility] Inpatient Acute Clinical Impression: Right upper quadrant abdominal pain, Intractable abdominal pain Condition: Good
[2017-06-09 20:54] LABS: PLATELET COUNT 233 10^3/uL (150-400)
[2017-06-09] MEDS ORDERED: NS 1,000 ML IV ONE (20:57)
[2017-06-09] MEDS ORDERED: IOPAMIDOL (ISOVUE-300) 100 ML BTL ONE (22:23)
[2017-06-09] MEDS ORDERED: LIDOCAINE 2% VISCOUS 15 ML UDCUP ONE (23:06)
[2017-06-09] MEDS ORDERED: LIDOCAINE 2% JELLY 5 ML TUBE TP ONE (23:07)
[2017-06-10] MEDS ORDERED: PROMETHAZINE HCL 25 MG/ML INJ IVP PRN (00:25)
[2017-06-10] MEDS ORDERED: ONDANSETRON 4 MG/2 ML VIAL IVP PRN (00:25)
[2017-06-10] MEDS ORDERED: ACETAMINOPHEN 325 MG TAB PO PRN (00:25)
[2017-06-10] MEDS ORDERED: LORazepam 0.5 MG TAB PO PRN (00:25)
[2017-06-10] MEDS: HYDROmorphONE/DILAUDID 1 MG/ML INJ IVP PRN ×3 (01:57→21:42)
[2017-06-10] MEDS: HYDROCODONE/APAP 5/325 TAB PO PRN ×2 (01:57→08:35)
[2017-06-10] MEDS: LR 1,000 ML IV SCH ×3 (02:04→21:43)
[2017-06-10] MEDS ORDERED: BENZOCAINE UNIT DOSE SPRAY HURRICAINE MM PRN ×2 (03:33→13:19)
[2017-06-10] MEDS ORDERED: KETAMINE NASAL SPRAY NS PRN (03:49)
[2017-06-10] MEDS ORDERED: GABAPENTIN 300 MG CAP PO SCH (04:00)
[2017-06-10] MEDS: LUBIPROSTONE 24 MCG CAP PO SCH ×3 (04:36→21:20)
[2017-06-10] MEDS: METHADONE HCL 10 MG TAB PO SCH ×5 (04:38→21:47)
[2017-06-10 04:57] LABS: PLATELET COUNT 185 10^3/uL (150-400)
--- NOTE | 2017-06-10 05:45 | GHP ---
[f rep st] HISTORY AND PHYSICAL DATE OF ADMISSION: 06/09/2017 SOURCE: Patient provides history, appears reliable, his EMR from recent hospital stay was also reviewed and case discussed with ED provider. CHIEF COMPLAINT: Right upper quadrant abdominal pain. HISTORY OF PRESENT ILLNESS: This is a pleasant 52-year-old gentleman with a longstanding history of chronic pain issues including chronic regional pain syndrome with majority of symptoms on the right, history of glossopharyngeal neuralgia, history of trigeminal neuralgia, history of ascending cholangitis with multiple ERCPs and sphincterotomy, chronic back pain on chronic opiate dependence therapy who presents to the emergency department today with complaints of progressively worsening right upper quadrant abdominal pain. The patient was hospitalized on 05/10/2017, with concerns for ascending cholangitis. Patient with history of multiple ERCPs. He had pneumobilia, elevated LFTs and a mildly increased white blood cell count at that time and was placed on antibiotics. Plan was to manage conservatively with antibiotics until patient could be treated and follow up in clinic with Dr. Wood. Patient reports that his appointment is scheduled for several weeks out and his pain was increasingly worsening. He states that the right upper quadrant abdominal pain never resolved entirely after discharge. However, today he also developed some nausea, which was new and had a presyncopal or syncopal episode at home secondary to severity of pain per his report. Patient denies any melena, hematochezia. He does have history of opiate induced constipation for which he takes Amitiza. He denies any lower abdominal pain at this time. Right upper quadrant abdominal pain is constant and despite his multiple narcotics, pain medications have not been improving his symptoms. Patient denies any fevers or chills. No vomiting. Patient complaining of severe 10/10 pain, worse with movement or palpation. REVIEW OF SYSTEMS: GENERAL: Negative for fevers, chills. Denies any rashes or sores. ENT: No congestion, sore throat. EYES: No acute changes in vision or ocular pain. Patient does wear glasses. CV: No chest pain, palpitations. RESPIRATORY: No shortness of breath or cough. GI: As per HPI. : Patient denies any hematuria but reports more recently slowly improving dysuria at the end of his stream. He denies any discharge or STI exposures. MUSCULOSKELETAL: Chronic pain as above. PSYCH: Patient reports worsening depressive symptoms without any SI or HI related to increasing pain. NEURO: Patient with a chronic right-sided headache related to his neuralgia. He denies any new numbness or tingling or focal deficits. Remainder ROS negative except as noted above. ALLERGIES: Wellbutrin, steroids, carbamazepine. PAST MEDICAL HISTORY: Significant for chronic regional pain syndrome, glossopharyngeal neuralgia, atypical trigeminal neuralgia, benign essential hypertension, depression, anxiety, chronic opiate dependence with methadone, Nucynta, recent use of ketamine nasal spray, hypothyroidism, hypertension, hyperlipidemia, history of gallbladder sludge with history of ascending cholangitis, lumbar disk herniation with canal stenosis. Patient reports he had a full cardiac evaluation given significant family history including stress testing, which was negative. PAST SURGICAL HISTORY: Significant for multiple ERCPs and sphincterotomies. Denies any history of stent placement. Patient's primary spring repairer helper hand is Dr. Morris. Patient also with inguinal hernia repair and decompression of the 9th cranial nerve. FAMILY HISTORY: Mother with hypertension. Brother, sisters also with hypertension. Father age 42 due to [place]. Paternal grandfather age 48 due to [place]. SOCIAL HISTORY: Patient is , lives with his . He does not smoke, drink, or utilize any drugs. He denies any previous history of tobacco use which is listed as a former use. CODE STATUS: Full patient's MD SAUCEDA, his . PHYSICAL EXAMINATION: VITAL SIGNS: Upon arrival to the emergency department, blood pressure 150/95, heart rate 96, respiratory rate 18, O2 saturation 93% on room air with a temperature of 37.9. Current vitals blood pressure 140/92, heart rate 55, respiratory rate 12, O2 sat is 100% on 2 L by nasal cannula with a temperature 36.6. GENERAL: No acute distress. Patient is lying quietly in bed. He does appear fatigued, slightly sedated but lays very still in the bed. He wakes easily to his name. HEAD: Normocephalic, atraumatic. EYES: Extraocular muscles grossly intact. Pupils equal, round, slightly decreased reactivity to light bilaterally but symmetric. No scleral icterus or conjunctival injection. Patient is wearing glasses. ENT: Mucous membranes appear dry. No nasal discharge. No pharyngeal erythema. Dentition intact. NECK: Supple. Trachea midline. CV: Regular rate and rhythm. Slightly bradycardic. No murmurs, rubs, or gallops appreciated. No chest wall tenderness to palpation. RESPIRATORY: Unlabored breathing. Lungs clear to auscultation bilaterally. No wheezes, rales, or rhonchi. ABDOMEN: Obese, soft , mildly distended. Patient with significant tenderness to palpation in the right upper quadrant with positive Orosco sign. Minimal lower abdominal pain. Hypoactive bowel sounds. : No Walker in place. No suprapubic tenderness to palpation. EXTREMITIES: Patient without any cyanosis, clubbing, or edema. 2+ pedal pulses. Strength grossly intact in upper and lower extremities. Moves all extremities voluntarily. NEURO: Grossly nonfocal. No facial drooping. He moves all extremities. PSYCH: Patient does appear a little bit anxious. He is quite concerned regarding his pain management options and focused on his hypoglossive neuralgia, requesting use of his Hurricaine spray and ice chips or iced foods. Patient does become increasingly distressed with right upper quadrant abdominal exam and an RN notes that patient did fall asleep shortly after my visit. LABORATORY STUDIES: WBC 7.35, H and H 14.8 and 42.1, MCV of 88.8, platelet count is 233, neutrophil percent 77.3; no bands. Next, VBG lactic acid 1.3. Sodium 142, potassium 4.3, chloride 103, CO2 is 23, anion gap 16, BUN is 8, creatinine 0.9, GFR greater than 60, glucose 103, calcium 9.8, total protein 7.5 , albumin is 4.7, ALT is 37, AST is 27, alkaline phosphatase is 78, lipase is 52. Blood cultures x2 are pending. Abdominal ultrasound report reviewed, showing mild sludge in the gallbladder. No evidence of cholelithiasis or cholecystitis. Liver measuring 14 cm, normal in echogenicity without focal lesion. No evidence of intrahepatic biliary duct dilation. Right kidney without mass or hydronephrosis. Common bile duct measuring 4.6 mm. No significant free fluid. CT abdomen and pelvis: Image report reviewed. Negative for acute intraabdominal pelvic abnormality. Chronic findings including fatty liver infiltration; subcentimeter hypodense lesion in the dome of the liver probably representing hepatic cyst that is stable; gallbladder is unremarkable; pancreas unremarkable; spleen unremarkable; hypodense liver lesion in the superior pole of the left kidney, probably representing renal cortical cyst that is stable. No significant abdominal lymphadenopathy. No evidence diverticulitis. No significant free fluid in the pelvis. No evidence of bladder calculus. Degenerative changes lumbar spine is stable. ASSESSMENT AND PLAN: A pleasant 52-year-old gentleman with history of chronic regional pain syndrome, hypoglossal neuralgia, chronic right upper quadrant abdominal pain with recent history of treated suspected ascending cholangitis, who presents with complaints of acute on chronic right upper quadrant abdominal pain. 1. Abdominal pain. Pain will be difficult to control. I tried to review with the patient that there will be a limit to how much we will be able to control patient's reported pain given he is already on high doses of multiple narcotics and ketamine and advised that we will need to monitor his respiratory and cardiac status closely. If there is any evidence of hypoxia, hypotension more compromised then will need to focus on supportive measures and hold off on further narcotics. Patient without any evidence of recurrent cholangitis, no cholecystitis, no acute abdomen at this time. His laboratory studies are not indicative of any evidence of obstruction as LFTs are normal. He has no leukocytosis. Blood cultures are pending x2, and lactate is within normal limits. I briefly reviewed case with on-call surgeon as patient is afebrile and laboratory studies are normal. Also, agree that no indication for antibiotics at this time. The patient is followed by Dr. Wood and will try to reach out to his service in the morning to assist with further recommendations and evaluation. 2. Chronic pain syndrome. Will plan to resume patient's home medications including methadone, ketamine, gabapentin, Cymbalta, and again monitoring closely for any vital signs change. Will add Narcan p.r.n. for respiratory depression. Patient is on a continuous pulse ox. 3. Hypoglossal neuralgia. Supportive care. Hurricane spray and gabapentin. Pain medications as above. Will advance diet to sips and chips at this time pending surgery assessment in the morning. 4. Benign essential hypertension. Blood pressure is slightly elevated. Patient's heart rate has come down with what appears to be improved pain control as patient does rest in between visits from myself and the nurse. The patient's blood pressure is slightly elevated currently and likely related to pain. Continue with management as noted above. At baseline, patient is on amlodipine and will resume once pharmacy has had a chance to complete med reconciliation. Will resume the rest of his home medications. 5. Gallbladder sludge. No evidence of obstruction. Surgery consult as noted above. 6. Chronic back pain as noted above. 7. Anxiety, depression. Ativan p.r.n. Continue Cymbalta and trazodone. 8. Fluid, electrolyte, nutrition: Patient will receive IV fluids overnight. Will advance diet from n.p.o. to sips and chips for now. Electrolytes will be monitored and replaced if needed. 9. Prophylaxis. SCDs. Holding off on any anticoagulation pending surgical evaluation in the morning. 10. Code status is full. Patient desires his to act as proxy if needed. DISPOSITION: Patient has been admitted to observation on the medical floor. He is currently in ICU overflow and will monitor him on a pulse ox only at this time. /[id number]/MODL MTDD
[2017-06-10] MEDS: GABAPENTIN 300 MG CAP PO SCH ×4 (08:35→21:25)
[2017-06-10] MEDS ORDERED: DULoxetine 60 MG CAP PO SCH (09:00)
[2017-06-10] MEDS ORDERED: TAPENTADOL HCL 50 MG TAB PO PRN (10:56)
[2017-06-10] MEDS ORDERED: HYDROmorphONE/DILAUDID 1 MG/ML INJ IVP ONE (10:57)
[2017-06-10] MEDS ORDERED: POLYETHYLENE GLYCOL 3350 17 GM PKT PO PRN (12:51)
[2017-06-10] MEDS ORDERED: PHENOL 177 ML THROAT SPRAY PO PRN (12:51)
[2017-06-10] MEDS ORDERED: KETAMINE EACHNARE PRN ×2 (12:51→13:42)
[2017-06-10] MEDS ORDERED: BENZOCAINE 57 G CAN HURRICAINE MM PRN (12:51)
[2017-06-10] MEDS ORDERED: NON-FORMULARY NEW DRUG (Clonazepam [Klonopin] 2 MG) PO SCH (13:00)
[2017-06-10] MEDS: clonazePAM 1 MG TAB PO SCH ×2 (13:38→21:24)
[2017-06-10] MEDS: LEVOTHYROXINE 50 MCG TAB PO SCH (13:38)
[2017-06-10] MEDS: KETOROLAC 30 MG/1 ML SDV IVP PRN ×2 (14:10→22:14)
[2017-06-10] MEDS ORDERED: NON-FORMULARY NEW DRUG (Gabapentin [Neurontin] 600 MG) PO SCH (16:00)
[2017-06-10] MEDS ORDERED: diphenhydrAMINE 25 MG CAP PO PRN (16:18)
[2017-06-10] MEDS ORDERED: Suvorexant [Belsomra] 20 MG PO PRN (16:18)
[2017-06-10] MEDS ORDERED: BISACODYL 5 MG EC TAB PO PRN (16:18)
[2017-06-10] MEDS ORDERED: NALOXONE IJ PRN (16:18)
[2017-06-10] MEDS ORDERED: [UNRECOGNIZED DRUG - OTHER] IJ PRN (16:18)
--- NOTE | 2017-06-10 17:07 | HOSPPROG ---
Hospitalist Progress Note Assessment/Plan: 52 yo M w glossopharyngeal neuralgia, complex regional pain syndrome and now abd pain abd pain: ct images (interp by me) unremarkable + bowel sounds considered PUD, has not been taking NSAIDS as on list, o melena, will hold off on endoscopy for now LFT's and lipase unremarkable add lidocaine patch complex regional pain syndrome: continue meds proph: lmwh risk: high Subjective: claims to be very uncomfortable, pulse 53. amenable to trying lidocaine patch. no melena Objective: Vital Signs Temp Pulse Resp BP Pulse Ox 36.5 C 75 15 116/69 94 06/10/17 14:47 06/10/17 14:47 06/10/17 14:47 06/10/17 14:47 06/10/17 14:47 Laboratory Results 06/10/17 04:45 06/10/17 04:45 06/09/17 06/10/17 06/11/17 05:59 05:59 05:59 Intake Total 422 Balance 422 - Physical Exam Constitutional: no apparent distress, appears nourished Eyes: PERRL, anicteric sclera Ears, Nose, Mouth, Throat: moist mucous membranes, hearing normal Cardiovascular: regular rate and rhythym, no murmur, rub, or gallop Respiratory: no respiratory distress, no rales or rhonchi Gastrointestinal: normoactive bowel sounds, soft, non-tender abdomen Genitourinary: no bladder fullness, No gibbons in urethra Skin: warm, normal color Musculoskeletal: full muscle strength, no muscle tenderness Neurologic: AAOx3 ICD10 Worksheet Patient Problems: Problems Problem Status Onset Intractable abdominal pain Acute Right upper quadrant abdominal pain Acute Abdominal pain Acute Central stenosis of spinal canal Acute Emphysematous cholecystitis Acute Fever Acute Herniation of left side of L4-L5 intervertebral disc Acute Tachycardia Acute Transaminitis Acute
[2017-06-10] MEDS: CYANO/VITAMIN B12 1000 MCG TAB PO SCH (17:42)
[2017-06-10] MEDS: DICLOFENAC SODIUM 75 MG TAB PO SCH ×2 (17:42→22:07)
[2017-06-10] MEDS: BACLOFEN 20 MG TAB PO PRN ×2 (17:42→22:09)
[2017-06-10] MEDS: AMLODIPINE BESYLATE 5/BENAZEPRIL 20MG 1 EACH CAP PO SCH (17:43)
[2017-06-10] MEDS: DULoxetine 60 MG CAP PO SCH (17:48)
[2017-06-10] MEDS: LIDOCAINE 5% 1 EA PATCH TD SCH (17:52)
[2017-06-10] MEDS ORDERED: MELATONIN PO SCH (21:00)
[2017-06-10] MEDS ORDERED: ASCORBIC ACID 500 MG TAB PO SCH (21:00)
[2017-06-10] MEDS ORDERED: NON-FORMULARY NEW DRUG (Cholecalciferol (Vitamin D3) [Vitamin D3] 5,000 UNIT) PO SCH (21:00)
[2017-06-10] MEDS ORDERED: EZETIMIBE 10 MG TAB PO SCH (21:00)
[2017-06-10] MEDS ORDERED: OMEGA 3 FATTY ACIDS PO SCH (21:00)
[2017-06-10] MEDS ORDERED: TESTOSTERONE 1% 5 GM GEL PKT TD SCH (21:00)
[2017-06-10] MEDS ORDERED: PYRIDOXINE HCL PO SCH (21:00)
[2017-06-10] MEDS ORDERED: PATCH REMOVAL 1 EA PATCH TD SCH (21:00)
[2017-06-10] MEDS ORDERED: ASPIRIN 325 MG TAB PO SCH (21:00)
[2017-06-10] MEDS ORDERED: RESVERATROL 250 MG PO SCH ×2 (21:00)
[2017-06-10] MEDS ORDERED: Bifidobacterium Infantis [Align] 4 MG PO SCH (21:00)
[2017-06-10] MEDS ORDERED: [UNRECOGNIZED DRUG - OTHER] PO SCH (21:00)
[2017-06-10] MEDS: CHOLECALCIFEROL VIT D3 2,000 UNITS TAB/CAP PO SCH (21:21)
[2017-06-10] MEDS: HYDROCORTISONE ACETATE 25 MG SUPP PR SCH (21:29)
[2017-06-10] MEDS: OMEGA-3 FATTY ACIDS 1,000 MG CAP PO SCH (21:30)
[2017-06-11] MEDS: LR 1,000 ML IV SCH ×2 (04:08→07:46)
[2017-06-11] MEDS: KETOROLAC 30 MG/1 ML SDV IVP PRN (04:08)
[2017-06-11] MEDS: LEVOTHYROXINE 50 MCG TAB PO SCH (07:34)
[2017-06-11] MEDS: METHADONE HCL 10 MG TAB PO SCH (07:45)
[2017-06-11 08:06] VITALS: BP 125/85; PULSE 89; TEMP 97.8
[2017-06-11] MEDS: OMEGA-3 FATTY ACIDS 1,000 MG CAP PO SCH (08:40)
[2017-06-11] MEDS: AMLODIPINE BESYLATE 5/BENAZEPRIL 20MG 1 EACH CAP PO SCH (08:40)
[2017-06-11] MEDS: GABAPENTIN 300 MG CAP PO SCH (08:41)
[2017-06-11] MEDS: CHOLECALCIFEROL VIT D3 2,000 UNITS TAB/CAP PO SCH (08:41)
[2017-06-11] MEDS: CYANO/VITAMIN B12 1000 MCG TAB PO SCH (08:43)
[2017-06-11] MEDS: DULoxetine 60 MG CAP PO SCH (08:43)
[2017-06-11] MEDS: DICLOFENAC SODIUM 75 MG TAB PO SCH (08:44)
[2017-06-11] MEDS: clonazePAM 1 MG TAB PO SCH (08:44)
[2017-06-11] MEDS: LUBIPROSTONE 24 MCG CAP PO SCH (08:46)
[2017-06-11] MEDS: HYDROCORTISONE ACETATE 25 MG SUPP PR SCH (08:57)
[2017-06-11] MEDS: LIDOCAINE 5% 1 EA PATCH TD SCH (08:58)
[2017-06-11 08:59] VITALS: RESP 16; O2SAT 93
[2017-06-11] MEDS ORDERED: Meloxicam [Mobic] 15 MG PO SCH (09:00)
[2017-06-11] MEDS ORDERED: PANTOPRAZOLE SODIUM 40 MG TAB PO SCH (09:00)
[2017-06-11] MEDS ORDERED: Herbals/Supplements -Info Only PO SCH (09:00)
[2017-06-11] MEDS ORDERED: ENOXAPARIN 40 MG/0.4 ML SYR SC SCH (09:00)
--- NOTE | 2017-06-11 09:40 | ASMTCMCOM ---
CM Note CM Note Notes: 06/11/2017 Case Management Note Reviewed chart, including prior visits to [facility]. There are no case management d/c needs identified at this time. There are no PT or OT evals ordered at this time. Historically pt discharges without any needs with support from his . Case Management d/c poc: anticipating home independent with follow up as directed. Case Management available if needs change. Date Signed: 06/11/2017 09:40 AM Electronically Signed By:Jenna Stevenson RN
--- NOTE | 2017-06-11 09:54 | HOSPPROG ---
Hospitalist Progress Note Assessment/Plan: 52 yo M w glossopharyngeal neuralgia, complex regional pain syndrome and now abd pain abd pain: ct images (interp by me) unremarkable + bowel sounds considered PUD, has not been taking NSAIDS as on list, o melena, will hold off on endoscopy for now LFT's and lipase unremarkable add lidocaine patch complex regional pain syndrome: continue meds proph: lmwh home today >30 minutes on dc Subjective: pain unchanged Objective: Vital Signs Temp Pulse Resp BP Pulse Ox 36.6 C 89 16 125/85 H 93 06/11/17 08:00 06/11/17 08:00 06/11/17 08:59 06/11/17 08:40 06/11/17 08:59 Laboratory Results 06/10/17 04:45 06/11/17 05:10 06/10/17 06/11/17 06/12/17 05:59 05:59 05:59 Intake Total 422 2111 Output Total 50 Balance 422 2061 - Physical Exam Constitutional: no apparent distress Eyes: PERRL Ears, Nose, Mouth, Throat: moist mucous membranes, hearing normal Cardiovascular: regular rate and rhythym, no murmur, rub, or gallop Respiratory: no respiratory distress, no rales or rhonchi Gastrointestinal: normoactive bowel sounds, soft, non-tender abdomen Genitourinary: No gibbons in urethra Skin: warm Musculoskeletal: full muscle strength Neurologic: AAOx3 ICD10 Worksheet Patient Problems: Problems Problem Status Onset Transaminitis Acute Fever Acute Tachycardia Acute Abdominal pain Acute Herniation of left side of L4-L5 intervertebral disc Acute Central stenosis of spinal canal Acute Emphysematous cholecystitis Acute Right upper quadrant abdominal pain Acute Intractable abdominal pain Acute
--- NOTE | 2017-06-11 10:25 | GDS ---
[f rep st] DISCHARGE SUMMARY DISCHARGE DIAGNOSES: 1. Glossopharyngeal neuralgia, long-standing. 2. Right upper quadrant pain secondary to complex regional pain syndrome. 3. History of gallbladder sludge. 4. Significant polypharmacy. 5. Hypothyroidism, hypertension, hyperlipidemia. 6. History of ascending cholangitis, not present on this admission. 7. Lumbar disc herniation with canal stenosis. HOSPITAL COURSE: Please see admission history and physical by Dr. Melissa Lundy. The patient presented with worsening abdominal pain. It was not responsive to his home medication regimen of pain which includes meloxicam, indomethacin, diclofenac, duloxetine, vitamin B12, gabapentin, ketamine nasal spray, methadone 10 four times daily, clonazepam 2 twice daily, and Nucynta. The patient has had 2 bowel movements. He had normal LFTs, normal lipase was eating. He was not tachycardic, he was not febrile. He was not anemic. He has not had melena or bright red blood per rectum. Given he denies taking all of these NSAIDs on a regular basis; we did discuss GI endoscopy but he declined. His complaints were somewhat hard to pin down initially. He complained that he had glossopharyngeal neuralgia pain and could not talk yet he was able to speak for 35 minutes uninterrupted when I was in his room. The patient claims he is unable to eat and drink but he came to the hospital without laboratory or physical exam evidence of volume depletion. I discussed the possibility of up titrating neuropathic agents, as he described the pain in his right upper quadrant as neuropathic. When I offered this, he then said that those medicines such as Cymbalta, Lyrica and Neurontin did not work for him. He referenced his neurosurgeon who has not been seen in more than 3 years, had mentioned that to him. The patient was managed with his home pain medications as well as the addition of a lidocaine patch, which he felt to be not helpful. The patient wanted additional care but he was not particularly angling for opioids so it was not clear what he wanted. I felt that the patient was safe for discharge. He stated that he would visit another hospital upon discharge. He is discharged home on unchanged medication regimen which can be seen in the electronic health record. /[id number]/MODL MTDD
--- NOTE | 2017-06-11 16:20 | ASDISCHSUM ---
Discharge Information Plan Status:Home with No Needs Medically Cleared to Leave:06/10/2017 Discharge Date:06/11/2017 11:20 AM CM D/C Disposition:Home, Routine, Self-Care ADT D/C Disposition:Home, Routine, Self-Care Projected Discharge Date:06/11/2017 11:20 AM Transportation at D/C:Family Discharge Delay Reason: Follow-Up Date:06/11/2017 11:20 AM Discharge Slot: Final Diagnosis: Placement Information Patient Contact Information Contact Name:OCREEMADELINE Relationship: Address:[address] City:[place] Alternate Phone: [facility]/Zip Code:[place] [address] Email: Financial Information Financial Class:HMO and PPO Plans Primary Plan Desc:[facility] Primary Plan Number:[id number] Secondary Plan Desc: Secondary Plan Number: Assessment Information [facility] CM Progress Note CM Note CM Note Notes: 06/11/2017 Case Management Note Reviewed chart, including prior visits to [facility]. There are no case management d/c needs identified at this time. There are no PT or OT evals ordered at this time. Historically pt discharges without any needs with support from his . Case Management d/c poc: anticipating home independent with follow up as directed. Case Management available if needs change. Date Signed: 06/11/2017 09:40 AM Electronically Signed By:Jenna Stevenson RN Intervention Information
== END 2017-06-11 11:20 | disposition home or self-care (01) ==
LOC: F2N 06-10 00:41 → F1N 06-10 14:38
PROVIDERS: ADMIT Family Medicine; ATTEND Internal Medicine
DX: R10.11 Right upper quadrant pain (principal); G90.50 Complex regional pain syndrome I, unspecified; G52.1 Disorders of glossopharyngeal nerve; E03.9 Hypothyroidism, unspecified; K59.09 Other constipation; K82.4 Cholesterolosis of gallbladder; F11.20 Opioid dependence, uncomplicated; I10 Essential (primary) hypertension; M51.26 Other intervertebral disc displacement, lumbar region; G50.0 Trigeminal neuralgia; M54.9 Dorsalgia, unspecified; G89.4 Chronic pain syndrome; M48.061 Spinal stenosis, lumbar region without neurogenic claudication; E78.5 Hyperlipidemia, unspecified; F41.9 Anxiety disorder, unspecified; F32.9 Major depressive disorder, single episode, unspecified; G47.33 Obstructive sleep apnea (adult) (pediatric); Z79.899 Other long term (current) drug therapy; Z86.19 Personal history of other infectious and parasitic diseases; Z82.49 Family history of ischemic heart disease and other diseases of the circulatory system
CPT/HCPCS: 74177; 76705; G0378; 96374; J1170; J1650; J1885; J2405; Q9967

== ENCOUNTER 2018-03-05 11:19 | Inpatient (IN) | payer OTHER ==
--- NOTE | 2018-03-05 12:29 | EDPHY ---
General - History Smoking Status: Never smoked Time Seen by Provider: 03/05/18 12:19 Narrative: CHIEF COMPLAINT: Abdominal pain, bloody HISTORY OF PRESENT ILLNESS: Patient presents with complaints of abdominal pain and bloating. This has been present for several days. Described as severe pain and "I feel like is going to pop." Location is generalized. No position of comfort. He has been seen by primary care physician early this week, with an ultrasound performed yesterday. Ultrasound was outside facility, and he states being told that "it showed increased gas." He does not recall the formal diagnosis and he does not present with this today. He has severe worsening over night. Does have 2 previous abdominal surgeries remotely. No recent surgery. No trauma or injury. No diarrhea but some constipation. Severely nauseated. No other associated complaints or modifying factors. REVIEW OF SYSTEMS: 10 systems were reviewed and negative with the exception of the elements mentioned in the history of present illness. PCP: Located low-dose [facility] SPECIALISTS: Neurology PAST MEDICAL HISTORY: Atypical trigeminal neuralgia, chronic regional pain syndrome, peripheral neuropathy, hernia, hypothyroid, dyslipidemia, glossopharyngeal neuralgia, herniated discs, sleep apnea PAST SURGICAL HISTORY: Spinal cord stimulator, left inguinal hernia repair, cholecystectomy SOCIAL HISTORY: Nonsmoker FAMILY HISTORY: Noncontributory EXAMINATION: General Appearance: Alert, in mild distress due to pain. He is awake and conversing in full sentences. Shifting back and forth on the bed. Head: normocephalic, atraumatic Eyes: Pupils equal and round, no conjunctival pallor or injection ENT, Mouth: Mucous membranes moist Neck: Normal inspection, supple, non-tender Respiratory: Lungs are clear to auscultation Cardiovascular: Regular rate and rhythm Gastrointestinal: Abdomen is rigid and distended. There is tenderness in all 4 quadrants. Involuntary guarding. Bowel sounds are diminished in all 4 quadrants. No CVA tenderness. No ecchymosis. Back: non-tender, no bony abnormalities Neurological: A&O, nonfocal, normal gait Skin: Warm and dry, no rash no petechiae or purpura Extremities: Nontender, no pedal edema Psychiatric: Mood and affect normal DIFFERENTIAL DIAGNOSES: Including but not limited to perforated viscus, obstruction, volvulus, colitis, diverticulitis, ascending cholangitis MDM: 12:25 p.m. Significant abdominal pain with tachycardia and rigid abdomen on examination. The patient is in obvious discomfort but no acute distress. He is tachycardic but does not meet SIRS criteria otherwise. He reports an abdominal ultrasound yesterday outside facility that reportedly had "excess gas." His pain is significantly increased in the past 12 hr. He has 2 previous abdominal surgeries. I have immediately ordered CT scan abdomen pelvis, pain medication and i-STAT. At time of my signing up for and examination, the patient has been in the emergency department for 1 hr and 10 min[address] I have notified Dr. Neleam Mathis. 12:40 p.m. Notified by RN. First attempt at IV is unsuccessful. Second attempt at this time. 12:50 p.m. IV has been established. His i-STAT creatinine is normal and CT has been notified. 1:30 p.m. Notified by radiologist Dr. Walters. CT reveals no significant acute abnormality. There is no abnormality in the left side of the bladder that he recommends urinalysis and outpatient urology cystoscopy 4. Laboratory studies reveal no leukocytosis but there is urinary tract infection with microscopic hematuria. Patient re-evaluated. His abdominal exam is no longer concerning. He is relax considerably after the pain medication and is abdomen is soft at this time. 1:50 p.m. Patient re-evaluated. Still complaining of pain but is improved at this time. Abdomen remains soft. 3:10 p.m. Patient has been evaluated by Dr. Neelam Mathis. Patient still has moderate to severe abdominal pain, tachycardia and complicated urinary tract infection. She recommends admission the hospital. 3:20 p.m. Case discussed with hospitalist Dr. Jones. He will admit the patient to his service. He has been stable condition. He is requesting EKG for evaluation of the tachycardia and I have ordered this. TSH is pending. Rocephin ordered. SUPERVISION: Patient was evaluated and examined in conjunction with my secondary supervising physician as documented. We have both examined the patient. CONSULTATION: Hospitalist admission (Foreign Mendoza) Discussion: I evaluated and participated in the management of the patient. Myco-signature indicates that I have reviewed this chart and I agree with the findings and plan of care as documented. My personal H&P findings include: 52 year old male who presents to the ED with abdominal pain. Of note, patient quite tachycardic on arrival. Seen and examined by BROOK Mendoza as soon as he was placed in room. Reports ongoing abdominal pain with an ultrasound yesterday. Unable to localize pain well; states "generalized" No vomiting, diarrhea, urinary complaints. Patient with numerous chronic health problems, most notable, glossopharyngeal neuraligia which causes him to decrease his po intake when he is in discomfort or pain. CT scan ordered as soon as patient was examined. CT largely unremarkable except for some bladder wall thickening. On my exam, patient now reports passing a large piece of ?tissue? when urinating , and indeed has bloody urine at the bedside with a piece of tissue in the urinal. He now reports pelvic pain and pressure as his primary complaint. On my exam: Alert, in mild distress due to pain. Tachycardic. Indicates pain in pelvic region. He is awake and conversing in full sentences. Respiratory: Lungs are clear to auscultation Cardiovascular: Tachycardic but regular Abd: Soft, moderate diffuse tenderness, increased tenderness suprapubic region. Back: No CVA pain. Skin: Warm and dry, no rash no petechiae or purpura Extremities: Nontender, no pedal edema UA concerning for possible UTI. Patient remains in moderate discomfort and with tachycardia, hypertension when in pain. Perhaps some withdrawl is in evidence? Will admit to hospitalist for further treatment of presumed UTI, evaluate for other etiologies, continue to treat pain, hydrate aggressively. (Neelam Mathis) - Objective Vital Signs: Initial Vital Signs Temperature (C) 37.0 C 03/05/18 11:36 Heart Rate 137 H 03/05/18 11:36 Respiratory Rate 18 03/05/18 11:36 Blood Pressure 151/139 H 03/05/18 11:36 O2 Sat (%) 92 03/05/18 11:36 O2 Delivery Mode Nasal Cannula O2 (L/minute) 2 Allergies/Adverse Reactions: bupropion [From Wellbutrin] Allergy (Intermediate, Verified 03/05/18 16:13) carbamazepine [From Tegretol] Allergy (Intermediate, Verified 03/05/18 16:13) Corticosteroids (Glucocorticoids) Allergy (Unknown, Verified 03/05/18 16:13) cephalexin [From Keflex] Allergy (Verified 03/05/18 16:13) Other-Enter Comments Home Medications: Medication Instructions Recorded Ascorbic Acid [Vitamin C 500 mg 500 mg PO HS 09/14/15 (*)] Benzocaine [Hurricaine [place] 57 GM 1 spr IH PRN PRN 09/14/15 (*)] Cyanocobalamin [Vitamin B12 (*)] 1,000 mcg PO DAILY 09/14/15 DULoxetine [Cymbalta 60 MG (*)] 60 mg PO DAILY 09/14/15 Ezetimibe [Zetia 10 MG (*)] 10 mg PO HS 09/14/15 Levothyroxine [Synthroid 50 mcg 50 mcg PO DAILY06 09/14/15 (*)] Polyethylene Glycol 3350 [Miralax 17 gm PO DAILY PRN 09/14/15 17 gm (*)] amLODIPine BESYLATE/BENAZEPRIL 1 cap PO DAILY 09/14/15 [Lotrel 5/20 mg Cap (*)] Lubiprostone [Amitiza 24 mcg (*)] 24 mcg PO BID 05/10/17 Melatonin/Pyridoxine HCl (B6) 1 each PO HS 05/10/17 [Melatonin 10 mg Tablet] Ondansetron Odt [Zofran Odt 4 mg 4 mg PO TID PRN 05/10/17 (*)] Pantoprazole Sodium [Protonix 40mg 40 mg PO BID 05/10/17 (*)] clonazePAM [Klonopin] 2 mg PO BID 05/10/17 Bifidobacterium Infantis [Align] 4 mg PO HS 06/10/17 Cholecalciferol (Vitamin D3) 5,000 unit PO BID 06/10/17 [Vitamin D3] Herbals/Supplements -Info Only 1 ea PO DAILY 06/10/17 Ibuprofen [Motrin (*)] 400 mg PO BID PRN 06/10/17 Indomethacin [Indocin 25 mg (*)] 50 mg PO TID PRN 06/10/17 Ketamine Nasal [place] 1 - 2 sprays EACHNARE PRN PRN 06/10/17 Naproxen Sodium [Aleve 220 MG (*)] 220 mg PO BID PRN 06/10/17 Suvorexant [Belsomra] 20 mg PO HS PRN 06/10/17 diphenhydrAMINE [Benadryl 25 MG 75 - 100 mg PO HS PRN 06/10/17 (*)] Acetaminophen [Tylenol ES 500 mg 500 - 1,000 mg PO Q6 PRN 03/05/18 (*)] Amitriptyline HCl [Elavil 50 mg 50 mg PO HS 03/05/18 (*)] Amoxicillin/Clavulanate Pot 875 mg PO BID 03/05/18 [Augmentin 875 MG TAB (*)] Aspirin EC [Aspirin EC 81 mg (*)] 81 mg PO DAILY 03/05/18 Gabapentin [Neurontin 300 MG (*)] 900 mg PO HS 03/05/18 Hyoscyamine Sulfate [Levsin, 0.125 mg PO Q6H PRN 03/05/18 Hyomax-Sl 0.125 mg (*)] Lidocaine 2% Viscous 5 - 15 ml PO Q6H PRN 03/05/18 Methocarbamol [Robaxin 750 mg (*)] 750 mg PO Q4H PRN 03/05/18 Rosuvastatin Calcium [Crestor 20mg 20 mg PO DAILY 03/05/18 (*)] Laboratory Results: Laboratory Results 03/05/18 12:43 03/05/18 12:43 Medications Given: Hydrocodone Bitart/Acetaminophen ([place] 5/325) 1 - 2 tab PO Q4HRS PRN PRN Reason: Pain, Severe Able to Take PO Stop: 03/15/18 15:39 Last Admin: 03/05/18 22:55 Dose: 2 tab Amitriptyline HCl (Elavil) 50 mg PO HS [facility] Stop: 09/01/18 20:59 Last Admin: 03/05/18 22:53 Dose: 50 mg Amlodipine/Benazepril HCl (Lotrel 5-20 Mg Capsule) 1 each PO DAILY [facility] Stop: 09/02/18 08:59 Last Admin: 03/06/18 08:49 Dose: 1 each Aspirin Buffered (Aspirin Ec) 81 mg PO DAILY [facility] Stop: 09/02/18 08:59 Last Admin: 03/06/18 08:48 Dose: 81 mg Clonazepam (Klonopin) 2 mg PO BID [facility] Stop: 09/01/18 20:59 Last Admin: 03/06/18 08:48 Dose: 2 mg Duloxetine HCl (Cymbalta) 60 mg PO DAILY [facility] Stop: 09/02/18 08:59 Last Admin: 03/06/18 08:48 Dose: 60 mg Enoxaparin Sodium (Lovenox) 40 mg SC DAILY [facility] Stop: 09/02/18 08:59 Last Admin: 03/06/18 08:48 Dose: 40 mg Gabapentin (Neurontin) 900 mg PO HS [facility] Stop: 09/01/18 20:59 Last Admin: 03/05/18 22:53 Dose: 900 mg Hyoscyamine Sulfate (Levsin, Hyomax-Sl) 0.125 mg PO Q6H PRN PRN Reason: Spasms Stop: 09/01/18 16:20 Last Admin: 03/06/18 08:48 Dose: 0.125 mg Ceftriaxone Sodium 2 gm/ (Sodium Chloride) 50 mls @ 100 mls/hr IV DAILY [facility] PRN Reason: Protocol Stop: 04/05/18 08:59 Last Admin: 03/06/18 08:48 Dose: 50 mls Ketorolac Tromethamine (Toradol) 15 mg IVP Q6HRS PRN PRN Reason: Pain, Breakthrough Stop: 03/11/18 00:00 Last Admin: 03/06/18 09:18 Dose: 15 mg Levothyroxine Sodium (Synthroid) [facility] Stop: 09/02/18 05:59 Last Admin: 03/06/18 05:20 Dose: 50 mcg Methocarbamol (Robaxin) 750 mg PO Q4H PRN PRN Reason: Spasms Stop: 09/01/18 16:20 Last Admin: 03/06/18 03:16 Dose: 750 mg Miscellaneous Medication (Melatonin/Pyridoxine Hcl (B6) [Melatonin 10 Mg Tablet] ) 1 each PO HS [facility] Stop: 09/01/18 20:59 Last Admin: 03/05/18 22:54 Dose: 10 mg Ondansetron HCl (Zofran Odt) 4 mg PO Q4HRS PRN PRN Reason: Nausea/Vomiting, Use 1st Stop: 09/01/18 15:39 Last Admin: 03/06/18 03:16 Dose: 4 mg Pantoprazole Sodium (Protonix) 40 mg PO BID [facility] Stop: 09/01/18 20:59 Last Admin: 03/06/18 08:48 Dose: 40 mg Rosuvastatin Calcium (Crestor) 20 mg PO DAILY [facility] Stop: 09/02/18 08:59 Last Admin: 03/06/18 08:48 Dose: 20 mg Trazodone HCl (Trazodone) 200 mg PO HS [facility] Stop: 09/01/18 20:59 Last Admin: 03/05/18 23:05 Dose: Not Given Discontinued Medications Hydrocodone Bitart/Acetaminophen ([place] 5/325) 1 - 2 tab PO Q4HRS PRN PRN Reason: Pain, Moderate Able to Take PO Stop: 03/15/18 15:39 Last Admin: 03/05/18 18:35 Dose: 2 tab Hydromorphone HCl (Dilaudid) 1 mg IVP EDNOW ONE Stop: 03/05/18 12:31 Last Admin: 03/05/18 12:52 Dose: 1 mg Hydromorphone HCl (Dilaudid) 1 mg IVP EDNOW ONE Stop: 03/05/18 13:21 Last Admin: 03/05/18 13:24 Dose: 1 mg Hydromorphone HCl (Dilaudid) 1 mg IVP EDNOW ONE Stop: 03/05/18 15:32 Last Admin: 03/05/18 15:34 Dose: 1 mg Hydromorphone HCl (Dilaudid) 0.2 - 0.4 mg IVP Q4HRS PRN PRN Reason: Pain, Breakthrough Stop: 03/15/18 15:39 Last Admin: 03/05/18 20:22 Dose: 0.4 mg Hydromorphone HCl (Dilaudid) 0.5 - 1 mg IVP Q3HRS PRN PRN Reason: Pain, Breakthrough Stop: 03/15/18 19:59 Last Admin: 03/06/18 06:36 Dose: 1 mg Sodium Chloride (Ns) 1,000 mls @ 0 mls/hr IV EDNOW ONE; Wide Open PRN Reason: Protocol Stop: 03/05/18 12:31 Last Admin: 03/05/18 12:51 Dose: 1,000 mls Sodium Chloride (Ns) 1,000 mls @ 0 mls/hr IV EDNOW ONE; Wide Open PRN Reason: Protocol Stop: 03/05/18 13:37 Last Admin: 03/05/18 13:44 Dose: 1,000 mls Ceftriaxone Sodium/Dextrose (Rocephin 1 Gm (Premix)) 50 mls @ 100 mls/hr IV EDNOW ONE PRN Reason: Protocol Stop: 03/05/18 15:45 Last Admin: 03/05/18 15:30 Dose: 50 mls Ketorolac Tromethamine (Toradol) 30 mg IVP EDNOW ONE Stop: 03/05/18 13:37 Last Admin: 03/05/18 13:44 Dose: 30 mg Point of Care Test Results: Chemistry 03/05/18 12:50 POC Sodium 141 mEq/L mEq/L (135-145) POC Potassium 4.3 mEq/L mEq/L (3.3-5.0) POC Chloride 106 mEq/L mEq/L (97-110) POC BUN 20 mg/dL mg/dL (7-23) POC Creatinine 1.0 mg/dL mg/dL (0.7-1.3) POC Glucose 117 mg/dL H mg/dL (70-100) ISTAT H&H 03/05/18 12:50 POC Hgb 15.3 gm/dL gm/dL (13.7-17.5) POC Hct 45 % % (40-51) Departure - Departure Disposition: [facility] Inpatient Acute Clinical Impression: Tachycardia UTI (urinary tract infection) Qualifiers: Urinary tract infection type: acute cystitis Hematuria presence: with hematuria Qualified Code(s): N30.01 - Acute cystitis with hematuria Abdominal pain Qualifiers: Abdominal location: generalized Qualified Code(s): R10.84 - Generalized abdominal pain Condition: Good
[2018-03-05] MEDS ORDERED: NS 1,000 ML IV ONE ×2 (12:30→13:36)
[2018-03-05] MEDS ORDERED: HYDROmorphONE/DILAUDID 2 MG/ML INJ IVP ONE ×3 (12:30→15:31)
[2018-03-05] MEDS ORDERED: HYDROmorphONE/DILAUDID 1 MG/ML INJ ONE ×3 (12:49→15:29)
[2018-03-05] MEDS ORDERED: IOPAMIDOL (ISOVUE-300) 100 ML BTL ONE (12:53)
[2018-03-05 12:55] LABS: PLATELET COUNT 245 10^3/uL (150-400)
[2018-03-05] MEDS ORDERED: KETOROLAC 30 MG/1 ML SDV IVP ONE (13:36)
[2018-03-05 14:09] LABS: INR 1.05 (0.83-1.16); PROTIME(PATIENT) 13.9 SEC (12.0-15.0)
[2018-03-05] MEDS ORDERED: HYDROmorphONE/DILAUDID 1 MG/ML INJ IVP PRN (15:40)
[2018-03-05] MEDS ORDERED: HYDROCODONE/APAP 5/325 TAB PO PRN (15:40)
[2018-03-05] MEDS ORDERED: ACETAMINOPHEN 325 MG TAB PO PRN (15:40)
--- NOTE | 2018-03-05 15:56 | CPEKG ---
Test Reason : OPEN Blood Pressure : / mmHG Vent. Rate : 121 BPM Atrial Rate : 121 BPM P-R Int : 139 ms QRS Dur : 094 ms QT Int : 314 ms P-R-T Axes : 045 -29 -02 degrees QTc Int : 446 ms Sinus tachycardia Probable left atrial enlargement Borderline left axis deviation Abnormal R-wave progression, early transition Borderline T abnormalities, anterior leads Confirmed by Neelam Mathis ([id number]) on 03/05/2018 3:56:01 PM Referred By: Confirmed By:Neelam Mathis
--- NOTE | 2018-03-05 15:57 | PDGENHP ---
History and Physical - Chief Complaint Abdominal Pain - History of Present Illness Mr. Bermudez is a 52 yo male with a PMHx of CRPS, Trigeminal neuralgia who presents to [facility] for abdominal pain. He reports onset of pain approximately 1 month ago. He was seen by PCP at that time who prescribed him abx for UTI. He reports improvement in symptoms at that time but symptoms recurred 1 week ago. He denies f/c at home. He reports some dysuria but denies flank pain. Pain in abdomen is located in lower middle quadrant without radiation. He is followed by a customer service specialist for his CRPS and was previously on narcotics. He received a spinal cord stimulator in November at which time his narcotics were d/ c. He has experienced increase in his generalized pain recently as well. History Information - Allergies/Home Medication List Allergies/Adverse Reactions: bupropion [From Wellbutrin] Allergy (Intermediate, Verified 03/05/18 11:39) carbamazepine [From Tegretol] Allergy (Intermediate, Verified 03/05/18 11:39) Corticosteroids (Glucocorticoids) Allergy (Unknown, Verified 03/05/18 11:39) Home Medications: Ascorbic Acid [Vitamin C 500 mg (*)] 500 mg PO HS 09/14/15 [Last Taken 05/10/17] Aspirin [Aspirin 325 mg (*)] 325 mg PO HS 09/14/15 [Last Taken 09/12/15] Benzocaine [Hurricaine Chandler 57 GM (*)] 1 spr IH PRN PRN 09/14/15 [Last Taken ] Cyanocobalamin [Vitamin B12 (*)] 1,000 mcg PO DAILY 09/14/15 [Last Taken ] DULoxetine [Cymbalta 60 MG (*)] 60 mg PO BID 09/14/15 [Last Taken 05/10/17] Ezetimibe [Zetia 10 MG (*)] 10 mg PO HS 09/14/15 [Last Taken 05/09/17] Levothyroxine [Synthroid 50 mcg (*)] 50 mcg PO DAILY06 09/14/15 [Last Taken ] Methadone HCl [Methadone HCl 10 mg (*)] 10 mg PO QID 09/14/15 [Last Taken ] [place]-3 Fatty Acids/Fish Oil [Fish Oil 1,000 mg Capsule] 2,000 each PO BID 09/13 [Last Taken 05/10/17 09:00] Phenol [Chloraseptic spray (*)] 1 spray PO PRN PRN 09/14/15 [Last Taken 05/10/17 ] Polyethylene Glycol 3350 [Miralax 17 gm (*)] 17 gm PO DAILY PRN 09/14/15 [Last Taken 05/10/17] Resveratrol 250 mg PO HS #0 09/14/15 [Last Taken 09/12/15] amLODIPine BESYLATE/BENAZEPRIL [Lotrel 5/20 mg Cap (*)] 1 cap PO DAILY 09/14/15 [Last Taken 05/10/17] Diclofenac Sodium [Voltaren 75 MG (*)] 75 mg PO BID 05/10/17 [Last Taken ] Lubiprostone [Amitiza 24 mcg (*)] 24 mcg PO BID 05/10/17 [Last Taken 05/09/17 19 :00] Melatonin/Pyridoxine HCl (B6) [Melatonin 10 mg Tablet] 1 each PO HS 05/10/17 [ Last Taken 05/09/17] Ondansetron Odt [Zofran Odt 4 mg (*)] 4 mg PO TID PRN 05/10/17 [Last Taken 05/10] Pantoprazole Sodium [Protonix 40mg (*)] 40 mg PO BID 05/10/17 [Last Taken ] clonazePAM [Klonopin] 2 mg PO BID 05/10/17 [Last Taken 05/10/17] Bifidobacterium Infantis [Align] 4 mg PO HS 06/10/17 [Last Taken Unknown] Bisacodyl [Dulcolax] 5 mg PO 5XD PRN 06/10/17 [Last Taken Unknown] Cholecalciferol (Vitamin D3) [Vitamin D3] 5,000 unit PO BID 06/10/17 [Last Taken Unknown] Enzio 0.4 mg IJ PRN PRN 06/10/17 [Last Taken Unknown] Gabapentin [Neurontin] 600 mg PO TID 06/10/17 [Last Taken Unknown] Herbals/Supplements -Info Only 1 ea PO DAILY 06/10/17 [Last Taken Unknown] Hydrocortisone Acetate [Anucort-Hc] 25 mg RC BID 06/10/17 [Last Taken Unknown] Ibuprofen [Motrin (*)] 400 mg PO BID PRN 06/10/17 [Last Taken Unknown] Indomethacin [Indocin 25 mg (*)] 50 mg PO TID PRN 06/10/17 [Last Taken Unknown] Ketamine Nasal Chandler 2 - 4 sprays EACHNARE Q6 PRN 06/10/17 [Last Taken Unknown] Meloxicam [Mobic 15 mg] 15 mg PO DAILY 06/10/17 [Last Taken Unknown] Naproxen Sodium [Aleve 220 MG (*)] 220 mg PO BID PRN 06/10/17 [Last Taken Unknown] Suvorexant [Belsomra] 20 mg PO HS PRN 06/10/17 [Last Taken Unknown] Testosterone [ANDROGEL 1% 5gm pkt (*)] 5 gm TD HS 06/10/17 [Last Taken Unknown] diphenhydrAMINE [Benadryl 25 MG (*)] 75 - 100 mg PO HS PRN 06/10/17 [Last Taken Unknown] Amitriptyline HCl [Elavil 50 mg (*)] 25 mg PO HS 03/05/18 [Last Taken Unknown] Amoxicillin/Clavulanate Pot [Augmentin 875 MG TAB (*)] 875 mg PO BID 03/05/18 [ Last Taken Unknown] Baclofen [Baclofen 10 mg (*)] 10 mg PO TID 03/05/18 [Last Taken Unknown] Buprenorphine HCl/Naloxone HCl [Suboxone 2 mg-0.5 mg Sl Film] 1 each SL BID [Last Taken Unknown] Gabapentin [Neurontin 300 MG (*)] 600 mg PO 03/05/18 [Last Taken Unknown] Hydrocortisone Acetate [Anucort-Hc] 25 mg RC 03/05/18 [Last Taken Unknown] Hyoscyamine Sulfate [Levsin, Hyomax-Sl 0.125 mg (*)] 0.125 mg 03/05/18 [Last Taken Unknown] Ketamine [Ketamine 500 mg/10 ml (*)] 150 mg NASAL PRN PRN 03/05/18 [Last Taken Unknown] Lubiprostone [Amitiza 24 mcg (*)] 24 mcg PO BID 03/05/18 [Last Taken Unknown] Methocarbamol [Robaxin 750 mg (*)] 750 mg PO 03/05/18 [Last Taken Unknown] Naltrexone HCl [Revia 50mg (RX)] 2 mg PO BID 03/05/18 [Last Taken Unknown] Oxymorphone HCl [Oxymorphone HCl ER] 30 mg PO BID 03/05/18 [Last Taken Unknown] Rosuvastatin Calcium [Crestor 20mg (*)] 20 mg PO DAILY 03/05/18 [Last Taken Unknown] Suvorexant [Belsomra] 20 mg PO DAILY 03/05/18 [Last Taken Unknown] clonIDINE [Catapres (*)] 0.1 mg PO TID 03/05/18 [Last Taken Unknown] oxyCODONE IR [Oxycodone Ir (*)] 15 mg PO 03/05/18 [Last Taken Unknown] traZODone [traZODONE 100MG (*)] 200 mg PO HS 03/05/18 [Last Taken Unknown] I have personally reviewed and updated: family history, medical history, social history, surgical history - Past Medical History Additional medical history: CPRS, Trigemial neuralgia, glossopharyngeal neuralgia, HTN, chronic pain - Surgical History Reports: cholecystectomy Additional surgical history: spinal cord stimulator - Family History Negative for: renal disease - Social History Smoking Status: Never smoked Review of Systems Review of Systems: ROS: 10pt was reviewed & negative except for what was stated in HPI & below Physical Exam Physical Exam: Temp Pulse Resp BP Pulse Ox 37.0 C 121 H 18 160/102 H 94 03/05/18 11:36 03/05/18 15:30 03/05/18 15:30 03/05/18 15:30 03/05/18 15:30 O2 (L/minute) 2 Constitutional: no apparent distress, chronically ill appearing, uncomfortable Eyes: PERRL Ears, Nose, Mouth, Throat: dry mucous membranes Cardiovascular: tachycardia Respiratory: no respiratory distress, clear to auscultation Gastrointestinal: soft, non-tender abdomen, No guarding, No rebound, No distension Genitourinary: no bladder fullness, No no bladder tenderness, No gibbons in urethra Skin: warm Musculoskeletal: generalized weakness Neurologic: AAOx3 Psychiatric: anxious Lab Data & Imaging Review 03/05/18 12:43 03/05/18 12:43 WBC 8.85 10^3/uL (3.80-9.50) 03/05/18 12:43 RBC 5.12 10^6/uL (4.40-6.38) 03/05/18 12:43 Hgb 14.4 g/dL (13.7-17.5) 03/05/18 12:43 POC Hgb 15.3 gm/dL (13.7-17.5) 03/05/18 12:50 Hct 42.4 % (40.0-51.0) 03/05/18 12:43 POC Hct 45 % (40-51) 03/05/18 12:50 MCV 82.8 fL (81.5-99.8) 03/05/18 12:43 MCH 28.1 pg (27.9-34.1) 03/05/18 12:43 MCHC 34.0 g/dL (32.4-36.7) 03/05/18 12:43 RDW 14.9 % (11.5-15.2) 03/05/18 12:43 Plt Count 245 10^3/uL (150-400) 03/05/18 12:43 MPV 9.9 fL (8.7-11.7) 03/05/18 12:43 Neut % (Auto) 90.7 % (39.3-74.2) H 03/05/18 12:43 Lymph % (Auto) 5.9 % (15.0-45.0) L 03/05/18 12:43 [place] % (Auto) 2.8 % (4.5-13.0) L 03/05/18 12:43 Eos % (Auto) 0.2 % (0.6-7.6) L 03/05/18 12:43 Baso % (Auto) 0.1 % (0.3-1.7) L 03/05/18 12:43 Nucleat RBC Rel Count 0.0 % (0.0-0.2) 03/05/18 12:43 Absolute Neuts (auto) 8.03 10^3/uL (1.70-6.50) H 03/05/18 12:43 Absolute Lymphs (auto) 0.52 10^3/uL (1.00-3.00) L 03/05/18 12:43 Absolute Monos (auto) 0.25 10^3/uL (0.30-0.80) L 03/05/18 12:43 Absolute Eos (auto) 0.02 10^3/uL (0.03-0.40) L 03/05/18 12:43 Absolute Basos (auto) 0.01 10^3/uL (0.02-0.10) L 03/05/18 12:43 Absolute Nucleated RBC 0.00 10^3/uL (0-0.01) 03/05/18 12:43 Immature Gran % 0.3 % (0.0-1.1) 03/05/18 12:43 Immature Gran # 0.03 10^3/uL (0.00-0.10) 03/05/18 12:43 RBC/WBC/PLT Morphology TNP 03/05/18 12:43 Platelet Estimate TNP 03/05/18 12:43 PT 13.9 SEC (12.0-15.0) 03/05/18 13:50 INR 1.05 (0.83-1.16) 03/05/18 13:50 APTT 23.6 SEC (23.0-38.0) 03/05/18 13:50 POC Sodium 141 mEq/L (135-145) 03/05/18 12:50 Sodium REJ 03/05/18 12:43 POC Potassium 4.3 mEq/L (3.3-5.0) 03/05/18 12:50 Potassium TNP 03/05/18 12:43 POC Chloride 106 mEq/L (97-110) 03/05/18 12:50 Chloride TNP 03/05/18 12:43 Carbon Dioxide TNP 03/05/18 12:43 Anion Gap TNP 03/05/18 12:43 POC BUN 20 mg/dL (7-23) 03/05/18 12:50 BUN TNP 03/05/18 12:43 Creatinine TNP 03/05/18 12:43 POC Creatinine 1.0 mg/dL (0.7-1.3) 03/05/18 12:50 Estimated GFR TNP 03/05/18 12:43 Glucose TNP 03/05/18 12:43 POC Glucose 117 mg/dL (70-100) H 03/05/18 12:50 Calcium TNP 03/05/18 12:43 Total Bilirubin TNP 03/05/18 12:43 Conjugated Bilirubin TNP 03/05/18 12:43 Unconjugated Bilirubin TNP 03/05/18 12:43 AST TNP 03/05/18 12:43 ALT TNP 03/05/18 12:43 Alkaline Phosphatase TNP 03/05/18 12:43 Total Protein TNP 03/05/18 12:43 Albumin TNP 03/05/18 12:43 Lipase TNP 03/05/18 12:43 Urine Color MASON 03/05/18 13:12 Urine Appearance CLEAR 03/05/18 13:12 Urine pH 5.0 (5.0-7.5) 03/05/18 13:12 Ur Specific [place] > 1.035 (1.002-1.030) H 03/05/18 13:12 Urine Protein 3+ (NEGATIVE) H 03/05/18 13:12 Urine Ketones 1+ (NEGATIVE) H 03/05/18 13:12 Urine Blood 2+ (NEGATIVE) H 03/05/18 13:12 Urine Nitrate POSITIVE (NEGATIVE) H 03/05/18 13:12 Urine Bilirubin NEGATIVE (NEGATIVE) 03/05/18 13:12 Urine Urobilinogen 4.0 EU (0.2-1.0) H 03/05/18 13:12 Ur Leukocyte Esterase NEGATIVE (NEGATIVE) 03/05/18 13:12 Urine RBC 50-182 /hpf (0-3) H 03/05/18 13:12 Urine WBC 5-10 /hpf (0-3) H 03/05/18 13:12 Ur Epithelial Cells NONE SEEN /lpf (NONE-1+) 03/05/18 13:12 Urine Mucus 1+ /lpf (NONE-1+) 03/05/18 13:12 Urine Glucose NEGATIVE (NEGATIVE) 03/05/18 13:12 Assessment & Plan Assessment: UTI (urinary tract infection) (Acute) - Presents with lower abdominal pain consistent with bladder tenderness - UA on admission shows +nitrite, WBC, 2+ blood - CT A/P negative for nephrolithiasis, hydronephrosis - Urine culture ordered - S/p Ceftriaxone in ED will continue pending culture date - No elevate WBC, afebrile Tachycardia - Likely elevated in setting of pain - Will manage pain as below - S/p 2L IVF in ED without significant improvement and normotensive indicating likely pain source - EKG shows sinus tachycardia - TSH pending CRPS - Continue home medications - Will order PRN Oxycodone for now Bladder Wall Thickening - Seen on CT - Arrange outpatient f/u with urology for cytoscopy in the future HTN - Continue home Amlodipine Hypothyroidism - Continue home Synthroid, TSH pending FEN: S/p 2L IVF in ED, PRN Ppx: Lovenox Code: FULL Dispo: Admit to Medicine
[2018-03-05] MEDS ORDERED: INDOMETHACIN 25 MG CAP PO PRN (16:21)
[2018-03-05] MEDS ORDERED: POLYETHYLENE GLYCOL 3350 17 GM PKT PO PRN (16:21)
[2018-03-05] MEDS ORDERED: BENZOCAINE 57 G CAN HURRICAINE MM PRN (16:21)
[2018-03-05] MEDS ORDERED: diphenhydrAMINE 25 MG CAP PO PRN (16:21)
[2018-03-05] MEDS ORDERED: KETAMINE 500 MG/10 ML VIAL NASAL PRN (16:21)
[2018-03-05] MEDS ORDERED: Suvorexant [Belsomra] 20 MG PO PRN (16:29)
[2018-03-05] MEDS: METHOCARBAMOL 750 MG TAB PO PRN (19:38)
[2018-03-05] MEDS ORDERED: HYDROmorphone HCL 0.5 MG/0.5 ML SYR IVP PRN (20:00)
[2018-03-05] MEDS: PANTOPRAZOLE SODIUM 40 MG TAB PO SCH ×2 (20:15→22:56)
[2018-03-05] MEDS: clonazePAM 1 MG TAB PO SCH ×2 (20:15→22:54)
[2018-03-05] MEDS: GABAPENTIN 300 MG CAP PO SCH ×2 (20:15→22:53)
[2018-03-05] MEDS: HYOSCYAMINE SULFATE 0.125 MG TAB PO PRN (21:14)
[2018-03-05] MEDS: KETOROLAC 15 MG/1 ML SDV IVP PRN (21:37)
[2018-03-05] MEDS: AMITRIPTYLINE HCL 50 MG TAB PO SCH (22:53)
[2018-03-05] MEDS: HYDROCODONE/APAP 5/325 TAB PO PRN (22:55)
[2018-03-05] MEDS: traZODone 100 MG TAB PO SCH (23:05)
[2018-03-06] MEDS: HYDROmorphone HCL 0.5 MG/0.5 ML SYR IVP PRN ×3 (00:32→06:36)
[2018-03-06] MEDS: KETOROLAC 15 MG/1 ML SDV IVP PRN ×4 (03:10→23:43)
[2018-03-06] MEDS: METHOCARBAMOL 750 MG TAB PO PRN ×4 (03:16→23:39)
[2018-03-06] MEDS: ONDANSETRON DISINTEGRATING 4 MG TAB PO PRN ×2 (03:16→19:29)
[2018-03-06] MEDS: LEVOTHYROXINE 50 MCG TAB PO SCH (05:20)
[2018-03-06] MEDS: ENOXAPARIN 40 MG/0.4 ML SYR SC SCH (08:48)
[2018-03-06] MEDS: ASPIRIN EC 81 MG TAB PO SCH (08:48)
[2018-03-06] MEDS: DULoxetine 60 MG CAP PO SCH (08:48)
[2018-03-06] MEDS: HYOSCYAMINE SULFATE 0.125 MG TAB PO PRN ×2 (08:48→16:36)
[2018-03-06] MEDS: PANTOPRAZOLE SODIUM 40 MG TAB PO SCH ×2 (08:48→20:38)
[2018-03-06] MEDS: ROSUVASTATIN CALCIUM 20 MG TAB PO SCH (08:48)
[2018-03-06] MEDS: clonazePAM 1 MG TAB PO SCH ×2 (08:48→20:39)
[2018-03-06] MEDS: AMLODIPINE BESYLATE 5/BENAZEPRIL 20MG 1 EACH CAP PO SCH (08:49)
--- NOTE | 2018-03-06 09:01 | HOSPPROG ---
Hospitalist Progress Note Assessment/Plan: #UTI: no abscess on CT. Some bladder wall thickening. Rec outpatient cytoscopy -CTX, culture data pending #Acute flank pain: pain out of proportion. No significant acute findings on CT. GI panel negative. LFTs, lipase NL. Afebrile without leukocytosis. Check lactate #Chronic regional pain syndrome: will contact his pain doctor. Has spinal cord stimulator -I spoke with his primary pain doctor at the [facility]. States that he has weaned off opioids to PRN only. Had some success with trial of spinal cord stimulator, but then when discussed permanent one, pt started showing pain med seeking behaviors. He has considered enrolling him in addiction center for opioid dependence #HTN: resume home medications #Diarrhea: negative GI panel #Trigeminal neuralgia: resume home meds #Hypothyroidism: Synthroid #Orthostatic hypotension: bolus NS, maintenance IVFs #Diet: regular #DVT ppx: lovenox #Disp: plan to DC tomorrow if clinically stable Subjective: c/o right flank pain Objective: Vital Signs Temp Pulse Resp BP Pulse Ox 36.6 C 105 H 18 138/98 H 91 L 03/06/18 07:33 03/06/18 07:33 03/06/18 07:33 03/06/18 08:49 03/06/18 07:33 Laboratory Results 03/06/18 04:20 03/05/18 03/06/18 03/07/18 05:59 05:59 05:59 Intake Total 2690 Output Total 600 Balance 2090 PT 13.9 SEC (12.0-15.0) 03/05/18 13:50 INR 1.05 (0.83-1.16) 03/05/18 13:50 - Time Spent With Patient Time Spent with Patient: greater than 35 minutes Time Spent with Patient: Greater than 35 minutes spent on this patients care, greater than 50% of time spent counseling, educating, and coordinating care regarding the above mentioned plan. - Physical Exam Constitutional: uncomfortable Eyes: PERRL Ears, Nose, Mouth, Throat: moist mucous membranes, hearing normal Cardiovascular: regular rate and rhythym Respiratory: no respiratory distress Gastrointestinal: normoactive bowel sounds Genitourinary: other (right flank, abd pain out of proportion to exam. significant pain with soft touch. +BS) Musculoskeletal: full muscle strength Neurologic: AAOx3, CN II-XII Intact Psychiatric: interacting appropriately ICD10 Worksheet Patient Problems: Problems Problem Status Onset Abdominal pain Acute Central stenosis of spinal canal Acute Emphysematous cholecystitis Acute Fever Acute Herniation of left side of L4-L5 intervertebral disc Acute Intractable abdominal pain Acute Right upper quadrant abdominal pain Acute Tachycardia Acute Transaminitis Acute UTI (urinary tract infection) Acute
--- NOTE | 2018-03-06 11:09 | PDMN ---
Medical Necessity Medical necessity: MCG M300 UTI: 52 yo w/ acute UTI, lower abd pain, and tachycardia 110s-130s, persistent, despite IVF. Started on scheduled IV antibx and IV pain management, urine cx pending, anticipate >2MN given chronic health problems, ongoing IV antibx, IV pain management, monitoring and treatment. Hx CPRS, Trigemial neuralgia, glossopharyngeal neuralgia, HTN, chronic pain, spinal cord stimulator placement in November 2017
[2018-03-06] MEDS: KETAMINE EACHNARE PRN ×3 (11:43→20:39)
[2018-03-06] MEDS: ONDANSETRON 4 MG/2 ML VIAL IVP PRN (13:03)
--- NOTE | 2018-03-06 13:30 | ASMTCMCOM ---
CM Note CM Note Notes: 52yr old male admitted for Abdominal pain, UTI, CRPS. He has a Hx of CRPS, Trigeminal neuralgia, Glossopharyngeal neuralgia, HTN, Chronic pain. Had a spinal cord simulator placed in November and now off narcotics for pain. Still c/o pain. Being tx for UTI. OT eval reports no needs. Lives with his , Jaye in [place]. CM not anticipating discharge needs. Date Signed: 03/06/2018 01:29 PM Electronically Signed By:Netta Epperson LCSW
[2018-03-06] MEDS: HYDROCODONE/APAP 5/325 TAB PO PRN (14:34)
[2018-03-06] MEDS: HYDROmorphONE/DILAUDID 4 MG TAB PO PRN ×3 (16:01→23:40)
[2018-03-06] MEDS: BENZOCAINE UNIT DOSE SPRAY HURRICAINE MM PRN ×2 (16:01→21:00)
[2018-03-06] MEDS ORDERED: NS 500 ML IV ONE (18:22)
[2018-03-06] MEDS ORDERED: NS 1,000 ML IV SCH (18:30)
[2018-03-06] MEDS: traZODone 100 MG TAB PO SCH (20:37)
[2018-03-06] MEDS: AMITRIPTYLINE HCL 50 MG TAB PO SCH (20:39)
[2018-03-06] MEDS: GABAPENTIN 300 MG CAP PO SCH (20:39)
[2018-03-07] MEDS: KETAMINE EACHNARE PRN ×3 (03:35→11:31)
[2018-03-07] MEDS: ONDANSETRON DISINTEGRATING 4 MG TAB PO PRN (03:36)
[2018-03-07] MEDS: LEVOTHYROXINE 50 MCG TAB PO SCH (06:17)
[2018-03-07] MEDS: HYDROmorphONE/DILAUDID 4 MG TAB PO PRN ×2 (06:18→11:05)
[2018-03-07] MEDS: ENOXAPARIN 40 MG/0.4 ML SYR SC SCH (07:43)
[2018-03-07] MEDS: PANTOPRAZOLE SODIUM 40 MG TAB PO SCH (07:44)
[2018-03-07] MEDS: ASPIRIN EC 81 MG TAB PO SCH (07:44)
[2018-03-07] MEDS: DULoxetine 60 MG CAP PO SCH (07:44)
[2018-03-07] MEDS: clonazePAM 1 MG TAB PO SCH (07:44)
[2018-03-07] MEDS: AMLODIPINE BESYLATE 5/BENAZEPRIL 20MG 1 EACH CAP PO SCH (07:44)
[2018-03-07] MEDS: KETOROLAC 15 MG/1 ML SDV IVP PRN ×2 (07:44→15:48)
[2018-03-07] MEDS: METHOCARBAMOL 750 MG TAB PO PRN ×2 (07:45→12:45)
[2018-03-07] MEDS: ROSUVASTATIN CALCIUM 20 MG TAB PO SCH (07:45)
[2018-03-07] MEDS: HYOSCYAMINE SULFATE 0.125 MG TAB PO PRN ×2 (07:55→15:48)
[2018-03-07 11:17] VITALS: BP 118/81
[2018-03-07] MEDS: ONDANSETRON 4 MG/2 ML VIAL IVP PRN (11:21)
[2018-03-07] MEDS: SIMETHICONE 80 MG TAB CHEW PO SCH ×2 (12:24→14:11)
[2018-03-07] MEDS: BENZOCAINE UNIT DOSE SPRAY HURRICAINE MM PRN (12:46)
[2018-03-07] MEDS ORDERED: PHENAZOPYRIDINE HCL 200 MG TAB PO SCH (13:00)
--- NOTE | 2018-03-07 14:28 | GDS ---
DISCHARGE DIAGNOSES: 1. Complicated urinary tract infection. 2. Chronic regional pain syndrome. 3. Glossopharyngeal nerve palsy. 4. Trigeminal neuralgia. 5. Hypertension. 6. Chronic pain. PRIMARY PAIN DOCTOR: Dr. Romulo Velásquez at [facility]. HISTORY OF PRESENT ILLNESS: 52-year-old male with history of chronic regional pain syndrome, glossopharyngeal nerve palsy, trigeminal neuralgia, presenting with abdominal pain. States this started a month ago. He was seen by his PCP, who prescribed him antibiotics for a UTI. He had improvement of his symptoms but these recurred a week ago. He was seen at [facility] day prior to admission here and sent home without intervention. He reports dysuria and some hematuria. Denies flank pain. No fevers, chills, or sweats. He is followed by Dr. Velásquez at [facility]. He received a spinal cord stimulator in November, and at that time, his narcotics were discontinued. He has experienced increased generalized pain overall. HOSPITAL COURSE BY PROBLEM: 1. Complicated UTI: Given symptoms with dysuria and hematuria, was treated with ceftriaxone. His culture is pending. DC on Bactrim (no LQ with risk QTc prolongation). CT was negative for abscess but showed bladder wall thickening. Recommend outpatient urology followup and cystoscopy in the next few weeks. 2. Diarrhea: GI panel was negative. 3. Chronic regional pain syndrome with opioid dependence: Complains of significant right upper abdominal and flank pain. There is no evidence of abscess or other intraabdominal process on CT. LFTs, lipase, and CBC were normal. He remained afebrile. Pain was out of proportion with my exam. He had normal lactate. I did speak with his primary pain doctor, Dr. Velásquez, who says that his narcotics were discontinued in November with the placement of the stimulator. He offered for permanent placement, but then patient began asking for more opioids. His doctor is concerned that he may be dependent on opioids and may warrant admission to rehab such as [facility] for detoxification. I had a long conversation with both the patient and his and will not discharge on opioids. 4. Glossopharyngeal neuralgia: Home meds prescribed by his pain doctor. 5. Tachycardia: Secondary to pain and dehydration. He was given fluids here. DISPOSITION: Patient is stable for discharge home with his . NEW MEDICATIONS: 1. Bactrim 2. Pyridium. 3. Simethicone. FOLLOWUP: 1. Primary care physician. 2. Urology for outpatient cystoscopy. 3. Dr. Velásquez with [facility]. PHYSICAL EXAM: VITAL SIGNS: Today, temperature 36.8, blood pressure 118/80, heart rate in the 100s, respiration 14, 97% on 2 L. GENERAL: He is lying in bed with the lights off. HEENT: PERRLA. Moist mucous membranes. CV: Regular rate and rhythm. LUNGS: Clear. ABDOMEN: Tender all over with barely any touch that is very out of proportion to my exam. Positive bowel sounds throughout. : No Walker. MUSCULOSKELETAL: 5/5 upper and lower extremity strength. NEURO: 2 through 12 intact. PSYCH: Alert and oriented x3. TIME SPENT ON DISCHARGE: Greater than 30 minutes counseling patient and on treatment plan and followup. /[id number]/MODL MTDD
--- NOTE | 2018-03-07 15:26 | ASDISCHSUM ---
Discharge Information Plan Status:Home with No Needs Medically Cleared to Leave:03/07/2018 Discharge Date:03/07/2018 CM D/C Disposition:Home, Routine, Self-Care ADT D/C Disposition:Home, Routine, Self-Care Projected Discharge Date:03/07/2018 12:00 AM Transportation at D/C:Family Discharge Delay Reason: Follow-Up Date:03/07/2018 12:00 AM Discharge Slot:2 - 12:01 pm - 18:00 pm Final Diagnosis:abdominal pain, CRPS, Trigeminal neuralgia, HTN, Chronic pain Placement Information Patient Contact Information Contact Name:MEGANCREECH Relationship: Address:[address] City:[place] Alternate Phone: [facility]/Zip Code:[place] [address] Email: Financial Information Financial Class:HMO and PPO Plans Primary Plan Desc:[employer] Primary Plan Number:[id number] Secondary Plan Desc: Secondary Plan Number: Assessment Information [facility] CM Progress Note CM Note CM Note Notes: 52yr old male admitted for Abdominal pain, UTI, CRPS. He has a Hx of CRPS, Trigeminal neuralgia, Glossopharyngeal neuralgia, HTN, Chronic pain. Had a spinal cord simulator placed in November and now off narcotics for pain. Still c/o pain. Being tx for UTI. OT felipa reports no needs. Lives with his , Jaye in [place]. CM not anticipating discharge needs. Date Signed: 03/06/2018 01:29 PM Electronically Signed By:Netta Epperson LCSW Case Management Discharge Plan Note Case Management Discharge Discharge Order Complete? Answers: Yes Patient to Obtain Answers: Independently Medications Transportation Arranged Answers: Family/Friends Family Notified Answers: Yes Notes: Jaye Discharge Comments Notes: Patient is ready for discharge today. PT/OT both state patient has no needs and can d/c independently. No further needs. Date Signed: 03/07/2018 03:24 PM Electronically Signed By:Rica Valentin LCSW Intervention Information
== END 2018-03-07 16:14 | disposition home or self-care (01) | DRG 690 ==
LOC: F1N 18:08
PROVIDERS: ADMIT Internal Medicine; ATTEND Internal Medicine
DX: N39.0 Urinary tract infection, site not specified (principal); G90.50 Complex regional pain syndrome I, unspecified; F11.20 Opioid dependence, uncomplicated; I95.1 Orthostatic hypotension; G52.1 Disorders of glossopharyngeal nerve; G50.0 Trigeminal neuralgia; I10 Essential (primary) hypertension; R19.7 Diarrhea, unspecified; E86.9 Volume depletion, unspecified
CPT/HCPCS: 82435-PO; 82565-PO; 82947-PO; 84132-PO; 84295-PO; 84520-PO; 85014-PO; 96374; 97161-GP; 97165-GO; 97530-GP; J0696; J1170; J1650; J1885; J2405; Q9967

== ENCOUNTER 2018-04-09 15:17 | Emergency (ER) | payer OTHER ==
--- NOTE | 2018-04-09 15:46 | EDPHY ---
HPI/HX/ROS/PE/MDM Narrative: CHIEF COMPLAINT: "I scream when I urinate" HPI: The patient is a 53 y/o male with complicated medical history including complex regional pain syndrome arriving at the referral of his urologist complaining of severe, burning pain while urinating that began over the weekend. He describes "sludge" in his urine. He says, "also I have really bad gas especially over the last 24 hours that causes me to shallow breathe." This is associated with abdominal pain that is worse on the right side. He saw his urologist, Dr. Villanueva, today and had a normal UA, but was referred to the ED for further evaluation. REVIEW OF SYSTEMS: A comprehensive 10 system review of systems is otherwise negative aside from elements mentioned in the history of present illness. PMH: Complicated UTIs, chronic regional pain syndrome, glossopharyngeal nerve palsy, trigeminal neuralgia, hypertension, chronic pain, spinal cord stimulator Prior medical records reviewed including admission 03/05/18 for abdominal pain and complicated UTI. SOCIAL HISTORY: Lives in [place]. Disabled. . PCP: Dr. Lira. PHYSICAL EXAM: General:Patient is alert, in no acute distress. ENT:Eyes are normal to inspection. ENT inspection normal. Neck: Normal inspection. Full range of motion. Respiratory:No respiratory distress. Breath sounds normal bilaterally. Cardiovascular: Regular rate and rhythm. Strong peripheral pulses. Normal cap refill. Abdomen:The abdomen is nontender to palpation. There are no peritoneal signs. Back: Normal to inspection. No tenderness to palpation. Skin: Normal color. No rash. Warm and dry. Extremities: Normal appearance. Full range of motion. Neuro: Oriented x3. Normal motor function. Normal sensory function. ED Course: This is a 53 y/o male with a complicated medical history who presents with a few -day history of severe, burning pain while urinating now associated with abdominal pain that he attributes to flatulence. He appears uncomfortable on exam without acute findings. Plan for IV, labs, UA, and urology consult. UA shows elevated WBC and RBC. Do not have prior UA from urologist available for comparison. Abdominal x-ray shows nothing acute. 1703: Consulted with Dr. Nelson, urologist. He will contact patient's urologist and call me back. 1709: Consulted with Dr. Villanueva, patient's urologist. He reports he already sent UA from earlier today for culture and does not recommend treating with antibiotics for UTI here. Abdominal CT shows abnormal bladder, otherwise unremarkable. Patient is requesting pain medication prior to discharge. Plan for 10mg IV Decadron and 1mg IV Dilaudid then discharge home per patient's wishes. MDM: This was a challenging patient encounter, as patient has well-documented pain syndrome. He has a history of similar presentations but was sent to the ED to rule out abdominal pathology. He requested a CT which was performed and shows no acute findings. The patient has persistent bladder wall thickening, dysuria and hematuria which is likely related to his pain, but he was sent to the ED from his Urologist office so there are clearly aware of these findings. The patient was straightforward about the fact that he is on a pain medicine contract, but still requested a dose of IV narcotics here. - Data Points Imaging Results: Imaging Impressions Abdomen X-Ray 04/09/18 15:50 Impression: No acute findings. Abdomen CT 04/09/18 17:22 Impression: 1. Status post cholecystectomy. 2. Small stable hepatic cyst seen near the right dome, and benign upper pole left renal cortical cysts, with a punctate nonobstructive lower pole right nephrolith. 3. Abnormal appearance of the urinary bladder, which may be related to a chronic cystitis or neoplastic infiltration with perivesicular inflammatory stranding. There is no upstream hydronephrosis. 4. Mild nonspecific intraluminal fluid within the nondistended colon, with no wall thickening, mechanical obstruction, free air, or free fluid. Findings were discussed with Alessandro Bowen MD at 18:22, on 04/09/2018. Imaging: I viewed and interpreted images myself Laboratory Results: Laboratory Results 04/09/18 16:51 04/09/18 16:51 04/09/18 04/09/18 04/09/18 17:00 16:51 16:51 WBC 7.37 10^3/uL 10^3/uL (3.80-9.50) RBC 4.75 10^6/uL 10^6/uL (4.40-6.38) Hgb 13.7 g/dL g/dL (13.7-17.5) Hct 42.1 % % (40.0-51.0) MCV 88.6 fL fL (81.5-99.8) MCH 28.8 pg pg (27.9-34.1) MCHC 32.5 g/dL g/dL (32.4-36.7) RDW 15.3 % H % (11.5-15.2) Plt Count 256 10^3/uL 10^3/uL (150-400) MPV 9.3 fL fL (8.7-11.7) Neut % (Auto) 79.3 % H % (39.3-74.2) Lymph % (Auto) 11.0 % L % (15.0-45.0) [place] % (Auto) 9.0 % % (4.5-13.0) Eos % (Auto) 0.1 % L % (0.6-7.6) Baso % (Auto) 0.1 % L % (0.3-1.7) Nucleat RBC Rel Count 0.0 % % (0.0-0.2) Absolute Neuts (auto) 5.84 10^3/uL 10^3/uL (1.70-6.50) Absolute Lymphs (auto) 0.81 10^3/uL L 10^3/uL (1.00-3.00) Absolute Monos (auto) 0.66 10^3/uL 10^3/uL (0.30-0.80) Absolute Eos (auto) 0.01 10^3/uL L 10^3/uL (0.03-0.40) Absolute Basos (auto) 0.01 10^3/uL L 10^3/uL (0.02-0.10) Absolute Nucleated RBC 0.00 10^3/uL 10^3/uL (0-0.01) Immature Gran % 0.5 % % (0.0-1.1) Immature Gran # 0.04 10^3/uL 10^3/uL (0.00-0.10) Sodium 140 mEq/L mEq/L (135-145) Potassium 3.8 mEq/L mEq/L (3.3-5.0) Chloride 104 mEq/L mEq/L (97-110) Carbon Dioxide 23 mEq/l mEq/l (22-31) Anion Gap 13 mEq/L mEq/L (6-14) BUN 16 mg/dL mg/dL (7-23) Creatinine 0.9 mg/dL mg/dL (0.7-1.3) Estimated GFR > 60 Glucose 88 mg/dL mg/dL (70-100) Calcium 9.5 mg/dL mg/dL (8.5-10.4) Total Bilirubin 0.5 mg/dL mg/dL (0.1-1.4) Conjugated Bilirubin 0.4 mg/dL mg/dL (0.0-0.5) Unconjugated Bilirubin 0.1 mg/dL mg/dL (0.0-1.1) AST 44 IU/L IU/L (17-59) ALT 29 IU/L IU/L (21-72) Alkaline Phosphatase 67 IU/L IU/L (38-126) Total Protein 7.7 g/dL g/dL (6.3-8.2) Albumin 4.7 g/dL g/dL (3.5-5.0) Lipase 82 IU/L IU/L (23-300) Urine Color Urine Appearance Urine pH Ur Specific [place] Urine Protein Urine Ketones Urine Blood Urine Nitrate Urine Bilirubin Urine Urobilinogen Ur Leukocyte Esterase Urine RBC Urine WBC Ur Epithelial Cells Urine Mucus Urine Glucose 04/09/18 16:00 WBC RBC Hgb Hct MCV MCH MCHC RDW Plt Count MPV Neut % (Auto) Lymph % (Auto) [place] % (Auto) Eos % (Auto) Baso % (Auto) Nucleat RBC Rel Count Absolute Neuts (auto) Absolute Lymphs (auto) Absolute Monos (auto) Absolute Eos (auto) Absolute Basos (auto) Absolute Nucleated RBC Immature Gran % Immature Gran # Sodium Potassium Chloride Carbon Dioxide Anion Gap BUN Creatinine Estimated GFR Glucose Calcium Total Bilirubin Conjugated Bilirubin Unconjugated Bilirubin AST ALT Alkaline Phosphatase Total Protein Albumin Lipase Urine Color YELLOW Urine Appearance CLEAR Urine pH 5.0 (5.0-7.5) Ur Specific [place] > 1.035 H (1.002-1.030) Urine Protein 3+ H (NEGATIVE) Urine Ketones 2+ H (NEGATIVE) Urine Blood NEGATIVE (NEGATIVE) Urine Nitrate NEGATIVE (NEGATIVE) Urine Bilirubin NEGATIVE (NEGATIVE) Urine Urobilinogen 2.0 EU H EU (0.2-1.0) Ur Leukocyte Esterase 1+ H (NEGATIVE) Urine RBC 25-50 /hpf H /hpf (0-3) Urine WBC 25-50 /hpf H /hpf (0-3) Ur Epithelial Cells TRACE /lpf /lpf (NONE-1+) Urine Mucus TRACE /lpf /lpf (NONE-1+) Urine Glucose NEGATIVE (NEGATIVE) Medications Given: Discontinued Medications Ketorolac Tromethamine (Toradol) 15 mg IVP EDNOW ONE Stop: 04/09/18 19:44 Last Admin: 04/09/18 19:43 Dose: 15 mg Ondansetron HCl (Zofran) 4 mg IVP EDNOW ONE Stop: 04/09/18 18:44 Last Admin: 04/09/18 19:44 Dose: 4 mg General Time Seen by Provider: 04/09/18 15:33 Initial Vital Signs: Initial Vital Signs Temperature (C) 37.1 C 04/09/18 15:26 Heart Rate 125 H 04/09/18 15:26 Respiratory Rate 19 04/09/18 15:26 Blood Pressure 137/96 H 04/09/18 15:26 O2 Sat (%) 94 04/09/18 15:26 O2 Delivery Mode Room Air O2 (L/minute) 2 Allergies/Adverse Reactions: bupropion [From Wellbutrin] Allergy (Intermediate, Verified 04/09/18 15:24) carbamazepine [From Tegretol] Allergy (Intermediate, Verified 04/09/18 15:24) Corticosteroids (Glucocorticoids) Allergy (Unknown, Verified 04/09/18 15:24) cephalexin [From Keflex] Allergy (Verified 04/09/18 15:24) Other-Enter Comments Home Medications: Medication Instructions Recorded Ascorbic Acid [Vitamin C 500 mg 500 mg PO HS 09/14/15 (*)] Benzocaine [Hurricaine [place] 57 GM 1 spr IH PRN PRN 09/14/15 (*)] Cyanocobalamin [Vitamin B12 (*)] 1,000 mcg PO DAILY 09/14/15 DULoxetine [Cymbalta 60 MG (*)] 60 mg PO DAILY 09/14/15 Ezetimibe [Zetia 10 MG (*)] 10 mg PO HS 09/14/15 Levothyroxine [Synthroid 50 mcg 50 mcg PO DAILY06 09/14/15 (*)] Polyethylene Glycol 3350 [Miralax 17 gm PO DAILY PRN 09/14/15 17 gm (*)] amLODIPine BESYLATE/BENAZEPRIL 1 cap PO DAILY 09/14/15 [Lotrel 5/20 mg Cap (*)] Lubiprostone [Amitiza 24 mcg (*)] 24 mcg PO BID 05/10/17 Melatonin/Pyridoxine HCl (B6) 1 each PO HS 05/10/17 [Melatonin 10 mg Tablet] Ondansetron Odt [Zofran Odt 4 mg 4 mg PO TID PRN 05/10/17 (*)] Pantoprazole Sodium [Protonix 40mg 40 mg PO BID 05/10/17 (*)] clonazePAM [Klonopin] 2 mg PO BID 05/10/17 Bifidobacterium Infantis [Align] 4 mg PO HS 06/10/17 Cholecalciferol (Vitamin D3) 5,000 unit PO BID 06/10/17 [Vitamin D3] Herbals/Supplements -Info Only 1 ea PO DAILY 06/10/17 Indomethacin [Indocin 25 mg (*)] 50 mg PO TID PRN 06/10/17 Ketamine Nasal [place] 1 - 2 sprays EACHNARE PRN PRN 06/10/17 Naproxen Sodium [Aleve 220 MG (*)] 220 mg PO BID PRN 06/10/17 Suvorexant [Belsomra] 20 mg PO HS PRN 06/10/17 diphenhydrAMINE [Benadryl 25 MG 75 - 100 mg PO HS PRN 06/10/17 (*)] Acetaminophen [Tylenol ES 500 mg 500 - 1,000 mg PO Q6 PRN 03/05/18 (*)] Amitriptyline HCl [Elavil 50 mg 50 mg PO HS 03/05/18 (*)] Aspirin EC [Aspirin EC 81 mg (*)] 81 mg PO DAILY 03/05/18 Gabapentin [Neurontin 300 MG (*)] 900 mg PO HS 03/05/18 Hyoscyamine Sulfate [Levsin, 0.125 mg PO Q6H PRN 03/05/18 Hyomax-Sl 0.125 mg (*)] Lidocaine 2% Viscous 5 - 15 ml PO Q6H PRN 03/05/18 Methocarbamol [Robaxin 750 mg (*)] 750 mg PO Q4H PRN 03/05/18 Rosuvastatin Calcium [Crestor 20mg 20 mg PO DAILY 03/05/18 (*)] Phenazopyridine HCl [Pyridium] 200 mg PO PC #30 tab 03/07/18 Simethicone [Mylicon] 80 mg PO PCHS #30 tab.chew 03/07/18 Sulfamethox/Tmp 800/160 mg 1 tab PO BID #8 tab 03/07/18 [Bactrim Ds] Cipro 04/09/18 Departure - Departure Disposition: Home, Routine, Self-Care Clinical Impression: Dysuria Abdominal pain Qualifiers: Abdominal location: unspecified location Qualified Code(s): R10.9 - Unspecified abdominal pain Condition: Good Instructions: Dysuria (ED), Abdominal Pain (ED) Additional Instructions: Follow up with your urologist within 48 hours. Return to the ED for worsening of condition. Referrals: Nahun Lira MD [Primary Care Provider] - As per Instructions Linus Villanueva MD [Medical Doctor] - As per Instructions Report Scribed for: Alessandro Bowen Report Scribed by: Elma Martel Date of Report: 04/09/18 Time of Report: 15:46 Physician Review and Approval Statement: Portions of this note were transcribed by an ED scribe. I personally performed the history, physical exam, and medical decision making; and confirm the accuracy of the information in the transcribed note.
[2018-04-09 17:08] LABS: PLATELET COUNT 256 10^3/uL (150-400)
[2018-04-09] MEDS ORDERED: IOPAMIDOL (ISOVUE-300) 100 ML BTL ONE (17:41)
[2018-04-09] MEDS ORDERED: ONDANSETRON 4 MG/2 ML VIAL IVP ONE (18:43)
[2018-04-09] MEDS ORDERED: ONDANSETRON 4MG PREPACK#2 BTL TAKEHOME ONE (18:43)
[2018-04-09] MEDS ORDERED: KETOROLAC 15 MG/1 ML SDV ONE (19:23)
[2018-04-09] MEDS ORDERED: KETOROLAC 15 MG/1 ML SDV IVP ONE (19:43)
[2018-04-09] MEDS ORDERED: DEXAMETHASONE 10 MG/ML VIAL IVP ONE (20:04)
[2018-04-09] MEDS ORDERED: HYDROmorphONE/DILAUDID 2 MG/ML INJ IVP ONE (20:04)
[2018-04-09] MEDS ORDERED: DEXAMETHASONE 4 MG TAB ONE (20:19)
[2018-04-09] MEDS ORDERED: DEXAMETHASONE 4 MG/ML VIAL ONE (20:22)
[2018-04-09 20:49] VITALS: BP 130/99
== END 2018-04-09 21:22 | disposition home or self-care (01) ==
DX: R30.0 Dysuria (principal); R10.11 Right upper quadrant pain; G90.50 Complex regional pain syndrome I, unspecified; I10 Essential (primary) hypertension; Z96.9 Presence of functional implant, unspecified; Z90.6 Acquired absence of other parts of urinary tract
CPT/HCPCS: 96374; J1100; J1170; J1885; J2405; Q9967

== ENCOUNTER 2018-04-12 15:26 | Inpatient (IN) | payer OTHER ==
[2018-04-12] MEDS ORDERED: ONDANSETRON DISINTEGRATING 4 MG TAB PO ONE (16:18)
[2018-04-12] MEDS ORDERED: NS 1,000 ML IV ONE (16:18)
[2018-04-12] MEDS ORDERED: KETOROLAC 30 MG/1 ML SDV IVP ONE (16:18)
--- NOTE | 2018-04-12 16:36 | EDPHY ---
H & P Stated Complaint: DX KIDNEY STONE A FEW DAYS AGO/NOW WITH BLACK STOOLS N/V Time Seen by Provider: 04/12/18 15:44 HPI/ROS: CHIEF COMPLAINT: Abdominal pain, black stool, sludge in urine HISTORY OF PRESENT ILLNESS: This is a 53-year-old male with a complex medical history that includes CRPs for which he is under the care of a pain management physician, trigeminal neuralgia, back pain, hypothyroidism, and hyperlipidemia. He presents today with diffuse abdominal pain, black stools, and "sludge" in his urine. He was seen in the emergency department 2 days ago after being referred by his urologist, Dr. Linus Villanueva. He has been undergoing an outpatient urology evaluation following admission for UTI at the end of February. The patient tells me that he was diagnosed with kidney stones when he was seen in the emergency department on 04/09. During that visit he received IV fluids, Zofran, Decadron, Toradol, and Dilaudid. He saw his pain doctor yesterday and was given a few oral Dilaudid but states that these did not help him and he has not taken any today. He freely admits that he has a pain medication contract with his physician. He describes his abdominal pain as diffuse, perhaps slightly worth this in the lower abdomen/suprapubic area. It is constant. He has had nausea but no vomiting. However, he states that he is not eating much of anything because of the nausea. He has been able to take fluids. He has had ongoing dysuria and is concerned about what he perceives as sludge in his urine. He notices blood in the urine at the end of his stream. He reports dark tarry stools. He takes a baby aspirin daily. REVIEW OF SYSTEMS: A ten system review of systems was performed and is negative with the exception of the items mentioned in the HPI. Past medical history: 1. Complex regional pain syndrome--spinal cord stimulator 2. Glossopharyngeal nerve palsy 3. Trigeminal neuralgia 4. Hypertension 5. Admission for urinary tract infection February 2018 Past surgical history: Spinal cord stimulator Cholecystectomy Social history: He denies use of alcohol or tobacco. He lives with his . He is disabled. General Appearance: Alert. Vital signs reviewed. Heart rate 130 at triage, blood pressure 128/93. Oxygen saturation 91% on room air at triage. Eyes: Pupils equal and round, no conjunctival injection, no discharge. Anicteric. ENT, Mouth: Mucous membranes are moist, no oropharyngeal erythema or edema. Neck: No lymphadenopathy, supple. Respiratory: Lungs are clear to auscultation; no wheezes, rales, or rhonchi. Cardiovascular: Mildly tachycardic at the time of my exam; no murmur, rub, or gallop. Gastrointestinal: Abdomen is soft with moderate diffuse tenderness, no guarding , no masses or organomegaly, bowel sounds normal. Rectal: No hemorrhoids. Nontender. Very small amount of stool on the examining glove, no blood visualized. Skin: Warm and dry, no rashes on exposed skin, normal color. Back: Nontender to palpation over the thoracolumbar spine. Right CVAT. Extremities: No lower extremity edema, no calf tenderness or swelling. Neurological: Alert and oriented. Moving all four extremities easily and equally. Psychiatric: Normal affect. - Personal History Current Tetanus Diphtheria and Acellular Pertussis (TDAP): Yes - Medical/Surgical History Hx Asthma: No Hx Chronic Respiratory Disease: No Hx Diabetes: No Hx Cardiac Disease: No Hx Renal Disease: No Hx Cirrhosis: No Hx Alcoholism: No Hx HIV/AIDS: No Hx Splenectomy or Spleen Trauma: No Other PMH: ERCP x2, TRAE 9th cranial nerve, R breast benign lumpectomy, L inguinal hernia repair, hypothyroid, hyperlipidemia, LEAH [end] glosso phayngeal pain/trigeminal neuralgia/herniated disc back issues, complex kamran pain syndrom, spinal stenosis, gallbladder removal - Social History Smoking Status: Never smoked Constitutional: Initial Vital Signs Temperature (C) 37.1 C 04/12/18 15:30 Heart Rate 130 H 04/12/18 15:30 Respiratory Rate 19 04/12/18 15:30 Blood Pressure 128/93 H 04/12/18 15:30 O2 Sat (%) 91 L 04/12/18 15:30 O2 Delivery Mode Room Air Allergies/Adverse Reactions: bupropion [From Wellbutrin] Allergy (Intermediate, Verified 04/12/18 15:28) carbamazepine [From Tegretol] Allergy (Intermediate, Verified 04/12/18 15:28) Corticosteroids (Glucocorticoids) Allergy (Unknown, Verified 04/12/18 15:28) cephalexin [From Keflex] Allergy (Verified 04/12/18 15:28) Other-Enter Comments Home Medications: Medication Instructions Recorded Ascorbic Acid [Vitamin C 500 mg 500 mg PO HS 09/14/15 (*)] Benzocaine [Hurricaine [place] 57 GM 1 spr IH PRN PRN 09/14/15 (*)] Cyanocobalamin [Vitamin B12 (*)] 1,000 mcg PO DAILY 09/14/15 DULoxetine [Cymbalta 60 MG (*)] 60 mg PO DAILY 09/14/15 Ezetimibe [Zetia 10 MG (*)] 10 mg PO HS 09/14/15 Levothyroxine [Synthroid 50 mcg 50 mcg PO DAILY06 09/14/15 (*)] Polyethylene Glycol 3350 [Miralax 17 gm PO DAILY PRN 09/14/15 17 gm (*)] amLODIPine BESYLATE/BENAZEPRIL 1 cap PO DAILY 09/14/15 [Lotrel 5/20 mg Cap (*)] Lubiprostone [Amitiza 24 mcg (*)] 24 mcg PO BID 05/10/17 Melatonin/Pyridoxine HCl (B6) 1 each PO HS 05/10/17 [Melatonin 10 mg Tablet] Ondansetron Odt [Zofran Odt 4 mg 4 mg PO TID PRN 05/10/17 (*)] Pantoprazole Sodium [Protonix 40mg 40 mg PO BID 05/10/17 (*)] clonazePAM [Klonopin] 2 mg PO BID 05/10/17 Bifidobacterium Infantis [Align] 4 mg PO HS 06/10/17 Cholecalciferol (Vitamin D3) 5,000 unit PO BID 06/10/17 [Vitamin D3] Herbals/Supplements -Info Only 1 ea PO DAILY 06/10/17 Indomethacin [Indocin 25 mg (*)] 50 mg PO TID PRN 06/10/17 Ketamine Nasal [place] 1 - 2 sprays EACHNARE PRN PRN 06/10/17 Naproxen Sodium [Aleve 220 MG (*)] 220 mg PO BID PRN 06/10/17 Suvorexant [Belsomra] 20 mg PO HS PRN 06/10/17 diphenhydrAMINE [Benadryl 25 MG 75 - 100 mg PO HS PRN 06/10/17 (*)] Acetaminophen [Tylenol ES 500 mg 500 - 1,000 mg PO Q6 PRN 03/05/18 (*)] Amitriptyline HCl [Elavil 50 mg 50 mg PO HS 03/05/18 (*)] Aspirin EC [Aspirin EC 81 mg (*)] 81 mg PO DAILY 03/05/18 Gabapentin [Neurontin 300 MG (*)] 900 mg PO HS 03/05/18 Hyoscyamine Sulfate [Levsin, 0.125 mg PO Q6H PRN 03/05/18 Hyomax-Sl 0.125 mg (*)] Lidocaine 2% Viscous 5 - 15 ml PO Q6H PRN 03/05/18 Methocarbamol [Robaxin 750 mg (*)] 750 mg PO Q4H PRN 03/05/18 Rosuvastatin Calcium [Crestor 20mg 20 mg PO DAILY 03/05/18 (*)] Phenazopyridine HCl [Pyridium] 200 mg PO PC #30 tab 03/07/18 Simethicone [Mylicon] 80 mg PO PCHS #30 tab.chew 03/07/18 Cipro 04/09/18 Medical Decision Making ED Course/Re-evaluation: I reviewed this patient's records from his emergency department visit on 04/09. Urinalysis at that time did not indicate urinary tract infection. Despite what he tells me, he was not diagnosed with kidney stones at that visit. He had a CT scan of the abdomen and pelvis performed and no ureterolithiasis is noted. He has an abnormal appearing urinary bladder on CT. He has been undergoing an outpatient evaluation with Dr. Linus Villanueva. He has had 2 urine cultures performed, done on 03/03 on 06/20/2023, both negative for any significant growth. Urine cytology is negative for malignant cells. He was admitted to this hospital at the end of February with a urinary tract infection. This is what prompted the original referral to Urology. In the emergency department today he received 1 L IV normal saline, Toradol 30 mg IV, and Zofran 4 mg IV. He has not had vomiting in the department. On repeat abdominal exam his abdomen remains mildly diffusely tender without guarding. There is perhaps slightly more tenderness in the suprapubic region. He complained of black tarry stools. Stool sample is negative for occult blood. I do not suspect GI bleeding at this point in time. His urinalysis is positive for nitrates, leukocyte esterase, trace bacteria, RBCs, and WBCs. There is also 4+ mucus and 3+ protein. Urine was sent for culture. He has some right CVA tenderness. His pain complaints are somewhat difficult to interpret, as he has chronic pain involving the right side of his body. However, I think that the overall clinical picture is one of pyelonephritis. He was given IV ceftriaxone in the emergency department. He is being admitted to the hospitalist service for continued IV antibiotics and evaluation as needed. Differential Diagnosis: I considered a differential diagnosis that includes but is not limited to urinary tract infection, pyelonephritis, prostatitis, ureterolithiasis, malignancy, GI bleeding. - Data Points Laboratory Results: Laboratory Results 04/12/18 16:32 04/12/18 16:32 04/12/18 04/12/18 04/12/18 16:32 16:32 16:00 WBC 6.97 10^3/uL 10^3/uL (3.80-9.50) RBC 4.87 10^6/uL 10^6/uL (4.40-6.38) Hgb 14.3 g/dL g/dL (13.7-17.5) Hct 42.8 % % (40.0-51.0) MCV 87.9 fL fL (81.5-99.8) MCH 29.4 pg pg (27.9-34.1) MCHC 33.4 g/dL g/dL (32.4-36.7) RDW 15.4 % H % (11.5-15.2) Plt Count 271 10^3/uL 10^3/uL (150-400) MPV 9.3 fL fL (8.7-11.7) Neut % (Auto) 73.3 % % (39.3-74.2) Lymph % (Auto) 14.2 % L % (15.0-45.0) [place] % (Auto) 11.5 % % (4.5-13.0) Eos % (Auto) 0.6 % % (0.6-7.6) Baso % (Auto) 0.1 % L % (0.3-1.7) Nucleat RBC Rel Count 0.0 % % (0.0-0.2) Absolute Neuts (auto) 5.11 10^3/uL 10^3/uL (1.70-6.50) Absolute Lymphs (auto) 0.99 10^3/uL L 10^3/uL (1.00-3.00) Absolute Monos (auto) 0.80 10^3/uL 10^3/uL (0.30-0.80) Absolute Eos (auto) 0.04 10^3/uL 10^3/uL (0.03-0.40) Absolute Basos (auto) 0.01 10^3/uL L 10^3/uL (0.02-0.10) Absolute Nucleated RBC 0.00 10^3/uL 10^3/uL (0-0.01) Immature Gran % 0.3 % % (0.0-1.1) Immature Gran # 0.02 10^3/uL 10^3/uL (0.00-0.10) Sodium 139 mEq/L mEq/L (135-145) Potassium 4.1 mEq/L mEq/L (3.3-5.0) Chloride 104 mEq/L mEq/L (97-110) Carbon Dioxide 20 mEq/l L mEq/l (22-31) Anion Gap 15 mEq/L H mEq/L (6-14) BUN 13 mg/dL mg/dL (7-23) Creatinine 0.8 mg/dL mg/dL (0.7-1.3) Estimated GFR > 60 Glucose 112 mg/dL H mg/dL (70-100) Calcium 9.7 mg/dL mg/dL (8.5-10.4) Total Bilirubin 0.5 mg/dL mg/dL (0.1-1.4) Conjugated Bilirubin 0.4 mg/dL mg/dL (0.0-0.5) Unconjugated Bilirubin 0.1 mg/dL mg/dL (0.0-1.1) AST 26 IU/L IU/L (17-59) ALT 30 IU/L IU/L (21-72) Alkaline Phosphatase 64 IU/L IU/L (38-126) Total Protein 7.5 g/dL g/dL (6.3-8.2) Albumin 4.7 g/dL g/dL (3.5-5.0) Lipase 146 IU/L IU/L (23-300) Urine Color Urine Appearance Urine pH Ur Specific [place] Urine Protein Urine Ketones Urine Blood Urine Nitrate Urine Bilirubin Urine Urobilinogen Ur Leukocyte Esterase Urine RBC Urine WBC Ur Epithelial Cells Urine Bacteria Urine Mucus Urine Glucose Stool Occult Bld Scrn NEGATIVE (NEGATIVE) 04/12/18 14:00 WBC RBC Hgb Hct MCV MCH MCHC RDW Plt Count MPV Neut % (Auto) Lymph % (Auto) [place] % (Auto) Eos % (Auto) Baso % (Auto) Nucleat RBC Rel Count Absolute Neuts (auto) Absolute Lymphs (auto) Absolute Monos (auto) Absolute Eos (auto) Absolute Basos (auto) Absolute Nucleated RBC Immature Gran % Immature Gran # Sodium Potassium Chloride Carbon Dioxide Anion Gap BUN Creatinine Estimated GFR Glucose Calcium Total Bilirubin Conjugated Bilirubin Unconjugated Bilirubin AST ALT Alkaline Phosphatase Total Protein Albumin Lipase Urine Color [place] Urine Appearance MODERATELY TURBID Urine pH 6.0 (5.0-7.5) Ur Specific [place] 1.028 (1.002-1.030) Urine Protein 3+ H (NEGATIVE) Urine Ketones 2+ H (NEGATIVE) Urine Blood 3+ H (NEGATIVE) Urine Nitrate POSITIVE H (NEGATIVE) Urine Bilirubin NEGATIVE (NEGATIVE) Urine Urobilinogen 2.0 EU H EU (0.2-1.0) Ur Leukocyte Esterase 3+ H (NEGATIVE) Urine RBC 50-182 /hpf H /hpf (0-3) Urine WBC 50-182 /hpf H /hpf (0-3) Ur Epithelial Cells NONE SEEN /lpf /lpf (NONE-1+) Urine Bacteria TRACE /hpf H /hpf (NONE SEEN) Urine Mucus 4+ /lpf H /lpf (NONE-1+) Urine Glucose NEGATIVE (NEGATIVE) Stool Occult Bld Scrn Medications Given: Discontinued Medications Sodium Chloride (Ns) 1,000 mls @ 0 mls/hr IV EDNOW ONE; Wide Open PRN Reason: Protocol Stop: 04/12/18 16:19 Last Admin: 04/12/18 16:38 Dose: 1,000 mls Ceftriaxone Sodium/Dextrose (Rocephin 1 Gm (Premix)) 50 mls @ 100 mls/hr IV EDNOW ONE PRN Reason: Protocol Stop: 04/12/18 17:57 Last Admin: 04/12/18 17:48 Dose: 50 mls Ketorolac Tromethamine (Toradol) 15 mg IVP EDNOW ONE Stop: 04/12/18 16:19 Last Admin: 04/12/18 16:38 Dose: 15 mg Ondansetron HCl (Zofran Odt) 4 mg PO EDNOW ONE Stop: 04/12/18 16:19 Last Admin: 04/12/18 16:39 Dose: 4 mg Departure - Departure Disposition: [facility] Acute Clinical Impression: Acute pyelonephritis Condition: Good
[2018-04-12 16:42] LABS: PLATELET COUNT 271 10^3/uL (150-400)
[2018-04-12] MEDS ORDERED: ONDANSETRON 4 MG/2 ML VIAL IVP PRN ×2 (18:08→20:00)
[2018-04-12] MEDS ORDERED: ACETAMINOPHEN 325 MG TAB PO PRN (18:08)
[2018-04-12] MEDS ORDERED: ONDANSETRON DISINTEGRATING 4 MG TAB PO PRN (18:08)
[2018-04-12] MEDS ORDERED: HYOSCYAMINE SULFATE 0.125 MG TAB PO PRN (19:37)
[2018-04-12] MEDS ORDERED: diphenhydrAMINE 25 MG CAP PO PRN (19:37)
[2018-04-12] MEDS ORDERED: SIMETHICONE 80 MG TAB CHEW PO PRN (19:37)
[2018-04-12] MEDS ORDERED: BENZOCAINE 57 G CAN HURRICAINE MM PRN (19:37)
[2018-04-12] MEDS ORDERED: VISCOUS PO PRN (19:37)
[2018-04-12] MEDS ORDERED: ACETAMINOPHEN 500 MG TAB PO PRN (19:37)
[2018-04-12] MEDS ORDERED: Suvorexant [Belsomra] 20 MG PO PRN (19:37)
[2018-04-12] MEDS ORDERED: POLYETHYLENE GLYCOL 3350 17 GM PKT PO PRN (19:37)
[2018-04-12] MEDS ORDERED: LIDOCAINE 2% PO PRN (19:37)
--- NOTE | 2018-04-12 20:00 | PDGENHP ---
<Rebecca Yo - Last Filed: 04/12/18 19:53> History and Physical - Chief Complaint Abdominal pain, dysuria - History of Present Illness 53 y/o male presents with abdominal and flank pain, dysuria, and "dark, black" stool. He was in the ED 3 days ago with similar complaints. 04/09/18 Abdominal x-ray showed no acute findings and abdominal CT showed an abnormal bladder. He reports "sludge" in his urine and his symptoms started one week ago. + nausea, lack of appetite, shallow breathing, abdominal tenderness and guarding, flank pain (more notably to the right). Denies chest pains, fevers/ chills, vomiting, weakness. He has a complicated history significant for: 1. CRPS (spinal cord stimulator, has contract with pain physician) 2. Glossopharyngeal neuralgia (Right-sided) 3. Trigeminal neuralgia (Right-sided) 4. Hyperlipidemia 5. Hypertension 6. Hypothryroidism 7. Cholecystectomy He is being admitted for antibiotics and further diagnostic work-up. History Information - Allergies/Home Medication List Allergies/Adverse Reactions: bupropion [From Wellbutrin] Allergy (Intermediate, Verified 04/12/18 15:28) carbamazepine [From Tegretol] Allergy (Intermediate, Verified 04/12/18 15:28) doxycycline Allergy (Mild, Unverified 04/12/18 18:53) Other-Enter Comments Corticosteroids (Glucocorticoids) Allergy (Unknown, Verified 04/12/18 15:28) cephalexin [From Keflex] Allergy (Verified 04/12/18 15:28) Other-Enter Comments Home Medications: Ascorbic Acid [Vitamin C 500 mg (*)] 500 mg PO HS 09/14/15 [Last Taken 04/11/18] Benzocaine [Hurricaine [place] 57 GM (*)] 1 spray IH PRN PRN 09/14/15 [Last Taken 05/09/17] Cyanocobalamin [Vitamin B12 (*)] 1,000 mcg PO DAILY 09/14/15 [Last Taken ] DULoxetine [Cymbalta 60 MG (*)] 60 mg PO DAILY 09/14/15 [Last Taken 04/11/18] Ezetimibe [Zetia 10 MG (*)] 10 mg PO HS 09/14/15 [Last Taken 04/12/18] Levothyroxine [Synthroid 50 mcg (*)] 50 mcg PO DAILY06 09/14/15 [Last Taken ] Polyethylene Glycol 3350 [Miralax 17 gm (*)] 17 gm PO BID PRN 09/14/15 [Last Taken 04/11/18] amLODIPine BESYLATE/BENAZEPRIL [Lotrel 5/20 mg Cap (*)] 1 cap PO DAILY 09/14/15 [Last Taken 04/11/18] Lubiprostone [Amitiza 24 mcg (*)] 24 mcg PO BID 05/10/17 [Last Taken 04/11/18] Melatonin/Pyridoxine HCl (B6) [Melatonin 10 mg Tablet] 1 each PO HS 05/10/17 [ Last Taken 04/11/18] Ondansetron Odt [Zofran Odt 4 mg (*)] 4 mg PO TID PRN 05/10/17 [Last Taken 05/10] Pantoprazole Sodium [Protonix 40mg (*)] 40 mg PO BID 05/10/17 [Last Taken ] clonazePAM [Klonopin] 2 mg PO BID 05/10/17 [Last Taken 04/12/18 09:00] Cholecalciferol (Vitamin D3) [Vitamin D3] 5,000 unit PO DAILY 06/10/17 [Last Taken 04/11/18] Herbals/Supplements -Info Only 1 ea PO DAILY 06/10/17 [Last Taken Unknown] Indomethacin [Indocin 25 mg (*)] 50 mg PO TID PRN 06/10/17 [Last Taken Unknown] Naproxen Sodium [Aleve 220 MG (*)] 220 mg PO BID PRN 06/10/17 [Last Taken Unknown] Suvorexant [Belsomra] 20 mg PO HS PRN 06/10/17 [Last Taken 04/11/18] diphenhydrAMINE [Benadryl 25 MG (*)] 75 - 100 mg PO HS PRN 06/10/17 [Last Taken 04/11/18] Acetaminophen [Tylenol ES 500 mg (*)] 500 - 1,000 mg PO Q6 PRN 03/05/18 [Last Taken Unknown] Aspirin EC [Aspirin EC 81 mg (*)] 81 mg PO DAILY 03/05/18 [Last Taken 04/11/18] Gabapentin [Neurontin 300 MG (*)] 900 mg PO HS 03/05/18 [Last Taken 04/11/18] Hyoscyamine Sulfate [Levsin, Hyomax-Sl 0.125 mg (*)] 0.125 mg PO Q6H PRN [Last Taken Unknown] Lidocaine 2% Viscous 5 - 15 ml PO Q6H PRN 03/05/18 [Last Taken Unknown] Methocarbamol [Robaxin 750 mg (*)] 750 mg PO Q4H PRN 03/05/18 [Last Taken ] Rosuvastatin Calcium [Crestor 20mg (*)] 20 mg PO DAILY 03/05/18 [Last Taken ] Amitriptyline HCl [Elavil 10 mg (*)] 10 mg PO HS 04/12/18 [Last Taken 04/11/18] Methadone HCl [Methadone HCl 10 mg (*)] 10 mg PO BID 04/12/18 [Last Taken 09:00] Mirabegron [Myrbetriq] 25 mg PO DAILY 04/12/18 [Last Taken 04/12/18] Phenazopyridine HCl [Pyridium] 200 mg PO BID PRN 04/12/18 [Last Taken Unknown] Simethicone [Mylicon] 80 mg PO HS PRN 04/12/18 [Last Taken Unknown] traZODone [traZODONE 100MG (*)] 200 mg PO HS 04/12/18 [Last Taken 04/11/18] I have personally reviewed and updated: family history, medical history, social history, surgical history Past Medical History: See HPI section - Past Medical History Additional medical history: CPRS, Trigemial neuralgia, glossopharyngeal neuralgia, HTN, chronic pain - Surgical History Reports: cholecystectomy Additional surgical history: spinal cord stimulator - Family History Positive for: non-pertinent - Social History Smoking Status: Never smoked Alcohol Use: None Drug Use: None (Lives in [place] with his , Jaye. Has a cane at home but usually does not use it.) Review of Systems Review of Systems: Lab data was reviewed UA: Protein 3+, Ketones 2+, Blood 3+, Nitrate Positive, Leukocyte Esterase 3+, Mucus 4+ Anion Gap: 15 ROS: 10pt was reviewed & negative except for what was stated in HPI & below Constitutional: Reports: malaise EENMT: Reports: no symptoms Respiratory: Reports: shortness of breath (Shallow breathing because of the pain ) Gastrointestinal: Reports: black stools Genitourinary: Reports: burning, dysuria, flank pain, hematuria, pain Muscolosketal: Reports: other (CRPS - mostly right sided) Skin: Reports: no symptoms Neurological: Reports: pre-existing deficit (CRPS) Hematologic/Lymphatic: Reports: no symptoms Immunologic/Allergy: Reports: other (See allergy list) Physical Exam Physical Exam: Temp Pulse Resp BP Pulse Ox 37.2 C 112 H 16 130/84 H 90 L 04/12/18 19:48 04/12/18 19:48 04/12/18 19:48 04/12/18 19:48 04/12/18 19:48 Constitutional: appears nourished, uncomfortable (Cooperative, pleasant patient who appears uncomfortable, holding his abdomen and his right leg shaking) Ears, Nose, Mouth, Throat: moist mucous membranes, hearing normal, ears appear normal, no oral mucosal ulcers Cardiovascular: regular rate and rhythym, no murmur, rub, or gallop, tachycardia , No edema Peripheral Pulses: 2+: dorsalis-pedis (R) (Radial 2+), dorsalis-pedis (L) ( Radial 2+) Respiratory: reduced air movement (Diminished lung bases) Gastrointestinal: tenderness, guarding, other (Hypoactive bowel sounds; CVA tenderness R>L) Genitourinary: no bladder fullness Skin: warm, normal color, no rashes or abrasions, no fluctuance, no induration, No mottled Musculoskeletal: full muscle strength, no muscle tenderness, normal joint ROM, no joint effusions Neurologic: AAOx3, sensation intact bilaterally, CN II-XII Intact Psychiatric: interacting appropriately, not encephalopathic, thought process linear, anxious Lymph, Heme, Immunologic: no cervical LAD, no supraclavicular LAD Lab Data & Imaging Review 04/12/18 16:32 04/12/18 16:32 WBC 6.97 10^3/uL (3.80-9.50) 04/12/18 16:32 RBC 4.87 10^6/uL (4.40-6.38) 04/12/18 16:32 Hgb 14.3 g/dL (13.7-17.5) 04/12/18 16:32 Hct 42.8 % (40.0-51.0) 04/12/18 16:32 MCV 87.9 fL (81.5-99.8) 04/12/18 16:32 MCH 29.4 pg (27.9-34.1) 04/12/18 16:32 MCHC 33.4 g/dL (32.4-36.7) 04/12/18 16:32 RDW 15.4 % (11.5-15.2) H 04/12/18 16:32 Plt Count 271 10^3/uL (150-400) 04/12/18 16:32 MPV 9.3 fL (8.7-11.7) 04/12/18 16:32 Neut % (Auto) 73.3 % (39.3-74.2) 04/12/18 16:32 Lymph % (Auto) 14.2 % (15.0-45.0) L 04/12/18 16:32 [place] % (Auto) 11.5 % (4.5-13.0) 04/12/18 16:32 Eos % (Auto) 0.6 % (0.6-7.6) 04/12/18 16:32 Baso % (Auto) 0.1 % (0.3-1.7) L 04/12/18 16:32 Nucleat RBC Rel Count 0.0 % (0.0-0.2) 04/12/18 16:32 Absolute Neuts (auto) 5.11 10^3/uL (1.70-6.50) 04/12/18 16:32 Absolute Lymphs (auto) 0.99 10^3/uL (1.00-3.00) L 04/12/18 16:32 Absolute Monos (auto) 0.80 10^3/uL (0.30-0.80) 04/12/18 16:32 Absolute Eos (auto) 0.04 10^3/uL (0.03-0.40) 04/12/18 16:32 Absolute Basos (auto) 0.01 10^3/uL (0.02-0.10) L 04/12/18 16:32 Absolute Nucleated RBC 0.00 10^3/uL (0-0.01) 04/12/18 16:32 Immature Gran % 0.3 % (0.0-1.1) 04/12/18 16:32 Immature Gran # 0.02 10^3/uL (0.00-0.10) 04/12/18 16:32 Sodium 139 mEq/L (135-145) 04/12/18 16:32 Potassium 4.1 mEq/L (3.3-5.0) 04/12/18 16:32 Chloride 104 mEq/L (97-110) 04/12/18 16:32 Carbon Dioxide 20 mEq/l (22-31) L 04/12/18 16:32 Anion Gap 15 mEq/L (6-14) H 04/12/18 16:32 BUN 13 mg/dL (7-23) 04/12/18 16:32 Creatinine 0.8 mg/dL (0.7-1.3) 04/12/18 16:32 Estimated GFR > 60 04/12/18 16:32 Glucose 112 mg/dL (70-100) H 04/12/18 16:32 Calcium 9.7 mg/dL (8.5-10.4) 04/12/18 16:32 Total Bilirubin 0.5 mg/dL (0.1-1.4) 04/12/18 16:32 Conjugated Bilirubin 0.4 mg/dL (0.0-0.5) 04/12/18 16:32 Unconjugated Bilirubin 0.1 mg/dL (0.0-1.1) 04/12/18 16:32 AST 26 IU/L (17-59) 04/12/18 16:32 ALT 30 IU/L (21-72) 04/12/18 16:32 Alkaline Phosphatase 64 IU/L (38-126) 04/12/18 16:32 Total Protein 7.5 g/dL (6.3-8.2) 04/12/18 16:32 Albumin 4.7 g/dL (3.5-5.0) 04/12/18 16:32 Lipase 146 IU/L (23-300) 04/12/18 16:32 Urine Color [place] 04/12/18 14:00 Urine Appearance MODERATELY TURBID 04/12/18 14:00 Urine pH 6.0 (5.0-7.5) 04/12/18 14:00 Ur Specific [place] 1.028 (1.002-1.030) 04/12/18 14:00 Urine Protein 3+ (NEGATIVE) H 04/12/18 14:00 Urine Ketones 2+ (NEGATIVE) H 04/12/18 14:00 Urine Blood 3+ (NEGATIVE) H 04/12/18 14:00 Urine Nitrate POSITIVE (NEGATIVE) H 04/12/18 14:00 Urine Bilirubin NEGATIVE (NEGATIVE) 04/12/18 14:00 Urine Urobilinogen 2.0 EU (0.2-1.0) H 04/12/18 14:00 Ur Leukocyte Esterase 3+ (NEGATIVE) H 04/12/18 14:00 Urine RBC 50-182 /hpf (0-3) H 04/12/18 14:00 Urine WBC 50-182 /hpf (0-3) H 04/12/18 14:00 Ur Epithelial Cells NONE SEEN /lpf (NONE-1+) 04/12/18 14:00 Urine Bacteria TRACE /hpf (NONE SEEN) H 04/12/18 14:00 Urine Mucus 4+ /lpf (NONE-1+) H 04/12/18 14:00 Urine Glucose NEGATIVE (NEGATIVE) 04/12/18 14:00 Stool Occult Bld Scrn NEGATIVE (NEGATIVE) 04/12/18 16:00 Assessment & Plan Assessment: 53 y/o male presents with a week long progression of abdominal pain, dysuria, hematuria and black stool, suspected acute pyelonephritis. Plan: #Pyelonephritis: UA + and symptomatic. -IV Ceftriaxone -IV fluids -IV Toradol PRN for pain #Tachycardia: initially presented in ED with HR 130 and now 100-112s. Afebrile. Most likely due to hypovolemia as pt has not had much to eat or drink within the week. -IV fluids -IV Toradol PRN for pain -Regular diet; encouraged PO intake -BMP tomorrow for anion gap check (15 tonight) -STAT Lactate tonight #Black stools: Hemoccult screen negative. Pt utilizes NSAIDs daily. -Educated pt to reduce NSAID use. -Continue to monitor #CRPS: He may continue to take his home medications. #Hyperlipidemia: continue home medications #Hypertension: continue home medications #Hypothryroidism: continue home medications Diet: Regular VTE ppx: SCDs Code: Full Dispo: Admit to inpatient <Keiko Adamson - Last Filed: 04/12/18 20:51> History and Physical - History of Present Illness Review of Systems Review of Systems: Physical Exam Physical Exam: Temp Pulse Resp BP Pulse Ox 37.2 C 112 H 16 130/84 H 90 L 04/12/18 19:48 04/12/18 19:48 04/12/18 19:48 04/12/18 19:48 04/12/18 19:48 Lab Data & Imaging Review 04/12/18 16:32 04/12/18 16:32 WBC 6.97 10^3/uL (3.80-9.50) 04/12/18 16:32 RBC 4.87 10^6/uL (4.40-6.38) 04/12/18 16:32 Hgb 14.3 g/dL (13.7-17.5) 04/12/18 16:32 Hct 42.8 % (40.0-51.0) 04/12/18 16:32 MCV 87.9 fL (81.5-99.8) 04/12/18 16:32 MCH 29.4 pg (27.9-34.1) 04/12/18 16:32 MCHC 33.4 g/dL (32.4-36.7) 04/12/18 16:32 RDW 15.4 % (11.5-15.2) H 04/12/18 16:32 Plt Count 271 10^3/uL (150-400) 04/12/18 16:32 MPV 9.3 fL (8.7-11.7) 04/12/18 16:32 Neut % (Auto) 73.3 % (39.3-74.2) 04/12/18 16:32 Lymph % (Auto) 14.2 % (15.0-45.0) L 04/12/18 16:32 [place] % (Auto) 11.5 % (4.5-13.0) 04/12/18 16:32 Eos % (Auto) 0.6 % (0.6-7.6) 04/12/18 16:32 Baso % (Auto) 0.1 % (0.3-1.7) L 04/12/18 16:32 Nucleat RBC Rel Count 0.0 % (0.0-0.2) 04/12/18 16:32 Absolute Neuts (auto) 5.11 10^3/uL (1.70-6.50) 04/12/18 16:32 Absolute Lymphs (auto) 0.99 10^3/uL (1.00-3.00) L 04/12/18 16:32 Absolute Monos (auto) 0.80 10^3/uL (0.30-0.80) 04/12/18 16:32 Absolute Eos (auto) 0.04 10^3/uL (0.03-0.40) 04/12/18 16:32 Absolute Basos (auto) 0.01 10^3/uL (0.02-0.10) L 04/12/18 16:32 Absolute Nucleated RBC 0.00 10^3/uL (0-0.01) 04/12/18 16:32 Immature Gran % 0.3 % (0.0-1.1) 04/12/18 16:32 Immature Gran # 0.02 10^3/uL (0.00-0.10) 04/12/18 16:32 VBG Lactic Acid 0.8 mmol/L (0.7-2.1) 04/12/18 20:14 Sodium 139 mEq/L (135-145) 04/12/18 16:32 Potassium 4.1 mEq/L (3.3-5.0) 04/12/18 16:32 Chloride 104 mEq/L (97-110) 04/12/18 16:32 Carbon Dioxide 20 mEq/l (22-31) L 04/12/18 16:32 Anion Gap 15 mEq/L (6-14) H 04/12/18 16:32 BUN 13 mg/dL (7-23) 04/12/18 16:32 Creatinine 0.8 mg/dL (0.7-1.3) 04/12/18 16:32 Estimated GFR > 60 04/12/18 16:32 Glucose 112 mg/dL (70-100) H 04/12/18 16:32 Calcium 9.7 mg/dL (8.5-10.4) 04/12/18 16:32 Total Bilirubin 0.5 mg/dL (0.1-1.4) 04/12/18 16:32 Conjugated Bilirubin 0.4 mg/dL (0.0-0.5) 04/12/18 16:32 Unconjugated Bilirubin 0.1 mg/dL (0.0-1.1) 04/12/18 16:32 AST 26 IU/L (17-59) 04/12/18 16:32 ALT 30 IU/L (21-72) 04/12/18 16:32 Alkaline Phosphatase 64 IU/L (38-126) 04/12/18 16:32 Total Protein 7.5 g/dL (6.3-8.2) 04/12/18 16:32 Albumin 4.7 g/dL (3.5-5.0) 04/12/18 16:32 Lipase 146 IU/L (23-300) 04/12/18 16:32 Urine Color [place] 04/12/18 14:00 Urine Appearance MODERATELY TURBID 04/12/18 14:00 Urine pH 6.0 (5.0-7.5) 04/12/18 14:00 Ur Specific [place] 1.028 (1.002-1.030) 04/12/18 14:00 Urine Protein 3+ (NEGATIVE) H 04/12/18 14:00 Urine Ketones 2+ (NEGATIVE) H 04/12/18 14:00 Urine Blood 3+ (NEGATIVE) H 04/12/18 14:00 Urine Nitrate POSITIVE (NEGATIVE) H 04/12/18 14:00 Urine Bilirubin NEGATIVE (NEGATIVE) 04/12/18 14:00 Urine Urobilinogen 2.0 EU (0.2-1.0) H 04/12/18 14:00 Ur Leukocyte Esterase 3+ (NEGATIVE) H 04/12/18 14:00 Urine RBC 50-182 /hpf (0-3) H 04/12/18 14:00 Urine WBC 50-182 /hpf (0-3) H 04/12/18 14:00 Ur Epithelial Cells NONE SEEN /lpf (NONE-1+) 04/12/18 14:00 Urine Bacteria TRACE /hpf (NONE SEEN) H 04/12/18 14:00 Urine Mucus 4+ /lpf (NONE-1+) H 04/12/18 14:00 Urine Glucose NEGATIVE (NEGATIVE) 04/12/18 14:00 Stool Occult Bld Scrn NEGATIVE (NEGATIVE) 04/12/18 16:00 Assessment & Plan Assessment: I saw and evaluated patient with Rebecca Yo NP. I agree with written findings and exam except as written below. S: c/o significant dysuria for several days that has progressed. Hematuria and "sludge in urine". Nausea, no vomiting. No f/c/s. Bilateral flank pain R>L. C/o black stools. Takes daily NSAIDs PE: afebrile, HRs 130-->102, RR 16, 95%RA Gen: uncomfortable, mildly diaphoretic HEENT: PERRLA, mildly dry MM CV: tachy, regular Lungs: CTA, BL GI: pain out of proportion to exam, +BS : BL CVA TTP, no suprapubic TTP [place]: 10/14 UE/LE strength Neuro: 2-12 intact Psych: A&Ox3 A&P: 1. Pyelonephritis: +UA, with flank TTP and nausea. IV CTX, culture pending. CT 04/09 with nephrolith, no abscess. Consider renal U/S if fevers or no improvement. Hold home NSAIDs with Toradol, on PPI. Zofran 2. Tachycardia: due to pain, dehydration. IVFs 3. Metabolic AG acidosis: starvation ketosis with decreased PO. Lactate pending , IVFs 4. Reported black stools: FOBT negative Counseled he should not take NSAIDs daily, on PPI 5. Chronic pain:CRPS, trigeminal/glossopharyngeal neuralgia. Has new pain doctor , Dr. Cid. Cont home medications 6. Hypothyroidism: LT4 7. HTN: home meds 8. Diet: regular 9. DVT ppx: ambulating Disp: observation admission for IV abx, IVFs, culture data
[2018-04-12] MEDS: KETOROLAC 15 MG/1 ML SDV IVP PRN (20:14)
[2018-04-12] MEDS: traZODone 100 MG TAB PO SCH (22:43)
[2018-04-12] MEDS: ONDANSETRON DISINTEGRATING 4 MG TAB PO PRN (22:43)
[2018-04-12] MEDS: PANTOPRAZOLE SODIUM 40 MG TAB PO SCH (22:43)
[2018-04-12] MEDS: GABAPENTIN 300 MG CAP PO SCH (22:43)
[2018-04-12] MEDS: clonazePAM 1 MG TAB PO SCH (22:44)
[2018-04-12] MEDS: ASCORBIC ACID 500 MG TAB PO SCH (22:44)
[2018-04-12] MEDS: METHADONE HCL 10 MG TAB PO SCH (22:44)
[2018-04-12] MEDS: AMITRIPTYLINE HCL 10 MG TAB PO SCH (22:44)
[2018-04-12] MEDS: AMLODIPINE BESYLATE 5/BENAZEPRIL 20MG 1 EACH CAP PO SCH (22:45)
[2018-04-12] MEDS: EZETIMIBE 10 MG TAB PO SCH (22:45)
[2018-04-12] MEDS: LUBIPROSTONE 24 MCG CAP PO SCH (22:51)
[2018-04-12] MEDS: Melatonin/Pyridoxine Hcl (B6) [Melatonin 10 Mg Tablet] 1 EACH PO SCH (22:51)
[2018-04-12] MEDS: PHENAZOPYRIDINE HCL 200 MG TAB PO PRN (23:00)
[2018-04-12] MEDS: MELATONIN 3 MG TAB PO SCH (23:00)
[2018-04-13] MEDS: METHOCARBAMOL 750 MG TAB PO PRN ×3 (00:56→22:21)
[2018-04-13] MEDS: KETOROLAC 15 MG/1 ML SDV IVP PRN ×4 (02:58→22:19)
[2018-04-13] MEDS: NS 1,000 ML IV SCH ×2 (03:00→10:31)
[2018-04-13] MEDS: LEVOTHYROXINE 50 MCG TAB PO SCH (06:38)
[2018-04-13] MEDS ORDERED: Herbals/Supplements -Info Only PO SCH (09:00)
[2018-04-13] MEDS: ROSUVASTATIN CALCIUM 20 MG TAB PO SCH (10:03)
[2018-04-13] MEDS: CYANO/VITAMIN B12 1000 MCG TAB PO SCH (10:03)
[2018-04-13] MEDS: DULoxetine 60 MG CAP PO SCH (10:03)
[2018-04-13] MEDS: clonazePAM 1 MG TAB PO SCH ×2 (10:03→22:21)
[2018-04-13] MEDS: CHOLECALCIFEROL VIT D3 2,000 UNITS TAB/CAP PO SCH (10:03)
[2018-04-13] MEDS: PANTOPRAZOLE SODIUM 40 MG TAB PO SCH ×2 (10:03→22:20)
[2018-04-13] MEDS: METHADONE HCL 10 MG TAB PO SCH ×2 (10:13→22:21)
[2018-04-13] MEDS: LUBIPROSTONE 24 MCG CAP PO SCH ×2 (12:06→22:22)
[2018-04-13] MEDS: Mirabegron [Myrbetriq] 25 MG PO SCH (12:06)
--- NOTE | 2018-04-13 12:09 | ASMTCMCOM ---
CM Note CM Note Notes: Patient admitted w blood in stool and urine. Has a recent hx of UTI and kidney stones - followed as outpt by Dr Villanueva. Now, he's been diagnosed w pyelonephritis. He is admitted for IV abx and pain control. Of note - patient has a pain specialist/contract as outpt. Lives independently with . I don't anticipate any d/c needs. Date Signed: 04/13/2018 12:09 PM Electronically Signed By:Latanya Mullins RN
--- NOTE | 2018-04-13 13:13 | HOSPPROG ---
Hospitalist Progress Note Assessment/Plan: 53 y/o male presents with a week long progression of abdominal pain, dysuria, hematuria and black stool, suspected acute pyelonephritis. I reviewed Dr Adamson' s dc summary February 2018. He was dc with a complicated UTI at that time. Reviewed his recent ER evaluation. Today is my first encounter w the patient, chart reviewed. #Pyelonephritis: UA + and symptomatic. -IV Ceftriaxone -IV fluids -IV Toradol PRN for pain -CT from 04/09 showed nothing acute, no hydro, no perinephric stranding, abnormal appearance to bladder (thickened) #hematuria -has a hypervascular bladder (reviewed his care w urology who will see) -hasn't been retaining urine -all of his recent CT have been w contrast, will get a non-contrast CT to further evaluate #diarrhea -this was noted on his last admission, he says this is much worse and wants further w/u -Occult blood screen is negative -has had one loose bowel movement today so far #chronic regional pain syndrome -had placement of a stimulator to help w pain -patient on scheduled Methadone, will avoid narcotics #Tachycardia -better today -IV fluids -IV Toradol PRN for pain -Regular diet; encouraged PO intake -lactate stable -was tachycardic on last admission #Hyperlipidemia -statin #Hypertension: continue home medications #Hypothyroidism: continue home medications #Plan: patient c/o severe pain, told him he'd be treated w Toradol, kpad. Will get a CT without contrast to evaluate for a possible stone. His pain is ongoing , he will require another midnight stay for further evaluation Subjective: Wesley says his pain is located on his rlq area. Objective: Vital Signs Temp Pulse Resp BP Pulse Ox 36.8 C 87 16 108/66 93 04/13/18 11:45 04/13/18 11:45 04/13/18 11:45 04/13/18 11:45 04/13/18 11:45 Laboratory Results 04/13/18 05:00 04/12/18 04/13/18 04/14/18 05:59 05:59 05:59 Intake Total 1600 Output Total 150 100 Balance 1450 -100 - Physical Exam Constitutional: appears nourished, uncomfortable, No not in pain Eyes: PERRL Ears, Nose, Mouth, Throat: hearing normal Cardiovascular: regular rate and rhythym, tachycardia Respiratory: no respiratory distress Gastrointestinal: normoactive bowel sounds, soft, non-tender abdomen Skin: warm Neurologic: AAOx3 Psychiatric: anxious ICD10 Worksheet Patient Problems: Problems Problem Status Onset Acute pyelonephritis Acute Abdominal pain Acute Central stenosis of spinal canal Acute Emphysematous cholecystitis Acute Fever Acute Herniation of left side of L4-L5 intervertebral disc Acute Intractable abdominal pain Acute Right upper quadrant abdominal pain Acute Tachycardia Acute Transaminitis Acute UTI (urinary tract infection) Acute
[2018-04-13] MEDS ORDERED: ONDANSETRON DISINTEGRATING 4 MG TAB PO PRN (14:10)
[2018-04-13] MEDS: ONDANSETRON DISINTEGRATING 4 MG TAB PO PRN ×2 (14:19→22:20)
[2018-04-13 17:22] LABS: HIV TYPE 1 AND 2 NEGATIVE (NEGATIVE)
--- NOTE | 2018-04-13 21:21 | GCON ---
DATE OF CONSULTATION: 04/13/2018 REASON FOR CONSULT: Gross hematuria, diffuse abdominal pain. HISTORY OF PRESENT ILLNESS: This is a 53-year-old male who has been previously seen in our office fo r gross hematuria. He underwent a cystoscopy just on 03/26/2018 that showed inflammatory polyps in t he urethra along with a hypervascular bladder. He did have a urine culture in our office that was shaylee snyder at that time. He was readmitted to the emergency room yesterday with similar symptoms to what we had seen him before in the past with gross hematuria, sludge-type material being found in his uri ne, and diffuse abdominal pain. It is directly on the right, although now he says it is on both the left and the right. Workup in our office from several weeks ago showed a hypervascular bladder as no jocelyn with some polyps. No sign of stones or tumors. We did send a urine cytology that came back with inflammation. No abnormal cells, and a molecular urine test showing moderate levels of Staph only. After workup in our office, it was recommended that he follow up with Gastroenterology, and it was f elt that some of his symptoms may be related to chronic opioid use. We had recommended that he do a trial of Myrbetriq, so it is unclear if he tried this. His workup thus far has been unremarkable. Brielle dale also described black stools. PAST MEDICAL HISTORY: Includes chronic regional pain syndrome, spinal cord stimulator contract with pain physician, loss of pharyngeal neuralgia, right-sided trigeminal neuralgia, right-sided, hyperlip idemia, hypertension, hypothyroidism, . ALLERGIES: Wellbutrin, Tegretol, doxycycline, corticosteroids, Keflex. HOME MEDICATIONS: Extensive and listed in the system. PHYSICAL EXAM: VITAL SIGNS: Blood pressure 108/66, heart rate 87, respirations 16, O2 93 on 1 L/min [place], temperature 36.8. GENERAL: This is a well-developed, well-nourished male in mild acute distres s. HEENT: Normocephalic, atraumatic. Extraocular movements intact. NECK: Supple. No lymphadenop athy. Trachea midline. RESPIRATORY: No accessory respiratory muscle use. CARDIAC: Somewhat rapid rate, regular rhythm. No obvious JVD. No lower extremity edema. GI: Abdomen was soft and nondist ended. Patient says it was tender to diffuse palpation, although he was able to carry on conversatio n. No hepatosplenomegaly. : No CVA tenderness. No bladder distention. Integument: No obvious rashes or lesions. The patient did appear somewhat pale. Musculoskeletal: Patient was examined whi le supine, but moving all extremities without difficulty. Neurologic: He is alert and oriented. Af fect appropriate to situation. LABS: His white blood cell count is 6.97, hemoglobin 14.3, hematocrit 42.8, platelets 271. Lactic a dinah is 0.8. Chemistry: Sodium 141, potassium 4, chloride 107, carbon dioxide 22, anion gap 12, BUN 15, creatinine 0.7, glucose 83, calcium 8.9. Urinalysis was positive for blood and nitrates. He uriostegui s have a urine culture that is pending, and preliminary results are negative after 18 hours. The patient has had a CT of the abdomen and pelvis without any abnormalities. ASSESSMENT AND PLAN: Includes diffuse abdominal pain, gross hematuria. This is a complicated patien t who has been recently worked up in our office for similar symptoms without definitive diagnosis. D iscussed the case with the hospitalist, Maggie Lara. I agree with recommendation for non con CT and to ensure no minute stones missed on previous CT images. We will await urine culture results. I do recommend the patient follow up with Gastroenterology, although I am uncertain if this is of urge nt need. Patient did have a stool culture that was negative for blood, but again with description of stools and symptoms, recommend further evaluation with Gastroenterology as an outpatient. /[id number]/MODL
[2018-04-13] MEDS: MELATONIN 3 MG TAB PO SCH (22:20)
[2018-04-13] MEDS: ASCORBIC ACID 500 MG TAB PO SCH (22:20)
[2018-04-13] MEDS: traZODone 100 MG TAB PO SCH (22:20)
[2018-04-13] MEDS: EZETIMIBE 10 MG TAB PO SCH (22:21)
[2018-04-13] MEDS: GABAPENTIN 300 MG CAP PO SCH (22:21)
[2018-04-13] MEDS: AMITRIPTYLINE HCL 10 MG TAB PO SCH (22:21)
[2018-04-13] MEDS: Melatonin/Pyridoxine Hcl (B6) [Melatonin 10 Mg Tablet] 1 EACH PO SCH (22:22)
[2018-04-14] MEDS: NS 1,000 ML IV SCH ×2 (01:39→14:26)
[2018-04-14] MEDS: KETOROLAC 15 MG/1 ML SDV IVP PRN ×4 (04:28→22:57)
[2018-04-14] MEDS: LEVOTHYROXINE 50 MCG TAB PO SCH (04:29)
[2018-04-14] MEDS: CEPACOL LOZENGE PO PRN (04:38)
--- NOTE | 2018-04-14 06:27 | PDMN ---
Medical Necessity Medical necessity: Change to inpt as of 04/13/18 @ 14:38. Pt meets inpt criteria per MD order and MCG M-300, Urinary Tract Infection. 53 y/o admitted w/ pyelonephritis continues to have ongoing severe pain, hematuria requiring further workup, ongoing IVF, IV ABX's, and IV Toradol for pain. CT abdomen shows bladder inflammation, infection, cystitis, urology following. Anticipate> 2MN for ongoing eval and management of above.
[2018-04-14] MEDS: AMLODIPINE BESYLATE 5/BENAZEPRIL 20MG 1 EACH CAP PO SCH (09:27)
[2018-04-14] MEDS: ROSUVASTATIN CALCIUM 20 MG TAB PO SCH (09:27)
[2018-04-14] MEDS: CHOLECALCIFEROL VIT D3 2,000 UNITS TAB/CAP PO SCH (09:27)
[2018-04-14] MEDS: PANTOPRAZOLE SODIUM 40 MG TAB PO SCH ×2 (09:27→21:02)
[2018-04-14] MEDS: DULoxetine 60 MG CAP PO SCH (09:28)
[2018-04-14] MEDS: METHADONE HCL 10 MG TAB PO SCH ×2 (09:28→21:02)
[2018-04-14] MEDS: clonazePAM 1 MG TAB PO SCH ×2 (09:29→21:02)
[2018-04-14] MEDS: CYANO/VITAMIN B12 1000 MCG TAB PO SCH (09:29)
[2018-04-14] MEDS: Mirabegron [Myrbetriq] 25 MG PO SCH (09:30)
[2018-04-14] MEDS: LUBIPROSTONE 24 MCG CAP PO SCH ×2 (09:30→21:03)
[2018-04-14] MEDS: ONDANSETRON DISINTEGRATING 4 MG TAB PO PRN ×2 (09:36→14:26)
--- NOTE | 2018-04-14 10:20 | HOSPPROG ---
Hospitalist Progress Note Assessment/Plan: 53 y/o male presents with a week long progression of abdominal pain, dysuria, hematuria and black stool, suspected acute pyelonephritis. I reviewed Dr Adamson' s dc summary February 2018. He was dc with a complicated UTI at that time. 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 #diarrhea -this was noted on his last admission, he says this is much worse and wants further w/u -Occult blood screen is negative -has had one loose bowel movement #chronic regional pain syndrome -had placement of a stimulator to help w pain -patient on scheduled Methadone, will avoid narcotics #Tachycardia -better today -IV fluids #Hyperlipidemia -statin #Hypertension: continue home medications #Hypothyroidism: continue home medications #Plan: trial of one dose of IV steroids to try and help with the inflammation Subjective: Wesley is better today, but still having right lower quadrant pain. It is difficult for him to tell if his chronic regional pain syndrome is affecting him. Objective: Vital Signs Temp Pulse Resp BP Pulse Ox 36.6 C 79 16 116/68 90 L 04/14/18 07:43 04/14/18 07:43 04/14/18 07:43 04/14/18 09:27 04/14/18 07:43 04/13/18 04/14/18 04/15/18 05:59 05:59 04:59 Intake Total 400 Output Total 600 Balance -200 - Physical Exam Constitutional: uncomfortable Eyes: PERRL Ears, Nose, Mouth, Throat: hearing normal Respiratory: no respiratory distress Skin: warm Neurologic: AAOx3 Psychiatric: interacting appropriately ICD10 Worksheet Patient Problems: Problems Problem Status Onset Acute pyelonephritis Acute Abdominal pain Acute Central stenosis of spinal canal Acute Emphysematous cholecystitis Acute Fever Acute Herniation of left side of L4-L5 intervertebral disc Acute Intractable abdominal pain Acute Right upper quadrant abdominal pain Acute Tachycardia Acute Transaminitis Acute UTI (urinary tract infection) Acute
[2018-04-14] MEDS: METHOCARBAMOL 750 MG TAB PO PRN ×2 (10:43→16:21)
[2018-04-14] MEDS ORDERED: methylPREDNISolone SOD SUCC 125 MG/2 ML VIAL IVP ONE (14:16)
[2018-04-14] MEDS: ASCORBIC ACID 500 MG TAB PO SCH (21:01)
[2018-04-14] MEDS: MELATONIN 3 MG TAB PO SCH (21:02)
[2018-04-14] MEDS: PHENAZOPYRIDINE HCL 200 MG TAB PO PRN (21:02)
[2018-04-14] MEDS: EZETIMIBE 10 MG TAB PO SCH (21:02)
[2018-04-14] MEDS: AMITRIPTYLINE HCL 10 MG TAB PO SCH (21:02)
[2018-04-14] MEDS: traZODone 100 MG TAB PO SCH (21:02)
[2018-04-14] MEDS: GABAPENTIN 300 MG CAP PO SCH (21:03)
[2018-04-14] MEDS: Melatonin/Pyridoxine Hcl (B6) [Melatonin 10 Mg Tablet] 1 EACH PO SCH (21:03)
[2018-04-15] MEDS: ONDANSETRON DISINTEGRATING 4 MG TAB PO PRN ×3 (00:16→08:58)
[2018-04-15] MEDS: NS 1,000 ML IV SCH (03:49)
[2018-04-15] MEDS: KETOROLAC 15 MG/1 ML SDV IVP PRN ×2 (05:15→11:19)
[2018-04-15] MEDS: LEVOTHYROXINE 50 MCG TAB PO SCH (05:15)
[2018-04-15 08:36] VITALS: BP 114/80
[2018-04-15] MEDS: ROSUVASTATIN CALCIUM 20 MG TAB PO SCH (08:49)
[2018-04-15] MEDS: CYANO/VITAMIN B12 1000 MCG TAB PO SCH (08:50)
[2018-04-15] MEDS: PANTOPRAZOLE SODIUM 40 MG TAB PO SCH (08:50)
[2018-04-15] MEDS: AMLODIPINE BESYLATE 5/BENAZEPRIL 20MG 1 EACH CAP PO SCH (08:50)
[2018-04-15] MEDS: clonazePAM 1 MG TAB PO SCH (08:51)
[2018-04-15] MEDS: DULoxetine 60 MG CAP PO SCH (08:51)
[2018-04-15] MEDS: METHADONE HCL 10 MG TAB PO SCH (08:51)
[2018-04-15] MEDS: CHOLECALCIFEROL VIT D3 2,000 UNITS TAB/CAP PO SCH (08:51)
[2018-04-15] MEDS: PHENAZOPYRIDINE HCL 200 MG TAB PO PRN (08:58)
[2018-04-15] MEDS: CEPACOL LOZENGE PO PRN (09:03)
[2018-04-15] MEDS ORDERED: BENZOCAINE 57 G CAN HURRICAINE MM PRN (09:30)
--- NOTE | 2018-04-15 09:30 | SOAPPROG ---
SOAP Progress Note Assessment/Plan: Assessment: Chronic bladder pain Acute no culture positive since 07/2017 that I have seen and in office cultures negative. could entertain the dx of eosinophilic cystitis cautiously and steroids may be best rx. Bx may be warranted yet would prefer no intervention due to risks and possible worsening of condition. Has had urinary cytology with out malignancy. Plan: will follow peripherally 04/15/18 09:28 Objective: Vital Signs Temp Pulse Resp BP Pulse Ox 36.6 C 75 16 114/80 95 04/15/18 08:00 04/15/18 08:00 04/15/18 08:00 04/15/18 08:00 04/15/18 08:00 04/14/18 04/15/18 04/16/18 06:59 05:59 05:59 Intake Total Output Total Balance Physical Exam - Physical Exam General Appearance: other (chart assessment only) ICD10 Worksheet Patient Problems: Problems Problem Status Onset Acute pyelonephritis Acute Chronic bladder pain Acute Abdominal pain Acute Central stenosis of spinal canal Acute Emphysematous cholecystitis Acute Fever Acute Herniation of left side of L4-L5 intervertebral disc Acute Intractable abdominal pain Acute Right upper quadrant abdominal pain Acute Tachycardia Acute Transaminitis Acute UTI (urinary tract infection) Acute - ICD10 Problem Qualifiers (1) Chronic bladder pain
[2018-04-15] MEDS: LUBIPROSTONE 24 MCG CAP PO SCH (10:18)
[2018-04-15] MEDS: Mirabegron [Myrbetriq] 25 MG PO SCH (10:18)
--- NOTE | 2018-04-15 10:22 | HOSPPROG ---
Hospitalist Progress Note Assessment/Plan: 53 y/o male presents with a week long progression of abdominal pain, dysuria, hematuria and black stool, suspected acute pyelonephritis. I reviewed Dr Adamson' s dc summary February 2018. He was dc with a complicated UTI at that time. 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 Objective: Vital Signs Temp Pulse Resp BP Pulse Ox 36.6 C 75 16 114/80 95 04/15/18 08:00 04/15/18 08:00 04/15/18 08:00 04/15/18 08:00 04/15/18 08:00 04/14/18 04/15/18 04/16/18 06:59 05:59 05:59 Intake Total Output Total Balance - Physical Exam Constitutional: uncomfortable Eyes: PERRL Ears, Nose, Mouth, Throat: hearing normal Respiratory: no respiratory distress Skin: warm, normal color Musculoskeletal: generalized weakness Neurologic: AAOx3 Psychiatric: interacting appropriately ICD10 Worksheet Patient Problems: Problems Problem Status Onset Acute pyelonephritis Acute Chronic bladder pain Acute Abdominal pain Acute Central stenosis of spinal canal Acute Emphysematous cholecystitis Acute Fever Acute Herniation of left side of L4-L5 intervertebral disc Acute Intractable abdominal pain Acute Right upper quadrant abdominal pain Acute Tachycardia Acute Transaminitis Acute UTI (urinary tract infection) Acute
[2018-04-15] MEDS: METHOCARBAMOL 750 MG TAB PO PRN (11:19)
--- NOTE | 2018-04-15 13:00 | GDS ---
DISCHARGE DIAGNOSES: 1. Likely hemorrhagic cystitis with pyuria and associated hematuria. 2. Diarrhea. 3. Chronic regional pain syndrome. 4. Tachycardia. 5. Hyperlipidemia. 6. Hypertension. 7. Hypothyroidism. CONSULTATION: ROXANNE Lewis with Urology. HISTORY OF PRESENT ILLNESS: Briefly, Ej Bermudez is a 53-year-old male who presented to the emergency room with abdominal and flank pain and dark black stools. He was in the emergency room 3 days prior to this for evaluation. He was admitted and had a CT scan prior to his admission, which showed nothing acute. No hydronephrosis. No perinephric stranding. He has an abnormal appearance to his bladder that is noted to be thickened. This CT was done with contrast. A 2nd CT without contrast was performed to rule out a kidney stone. This showed bladder inflammation. No hydronephrosis. Urology came and evaluated him. They noted that he had a cystoscopy and noted to have hypervascular bladder. He is being followed by Dr. Villanueva in the outpatient setting. Dr. Villanueva noted he could possibly have an eosinophilia cystitis and steroids could be the treatment. The patient cannot take oral steroids, because they cause increasing intracranial pressure per the patient. He will be discharged home and recommended he follow up with Urology and Gastroenterology as well as his primary care provider. HOSPITAL COURSE PER PROBLEM: 1. Hemorrhagic cystitis. The initial concern was that he had pyelonephritis. He received full treatment of ceftriaxone. His urine culture showed no growth. IV Toradol has helped with the pain. Further follow up with his PCP. 2. Diarrhea, 1 bout. His occult blood screen is negative. 3. Chronic regional pain syndrome. He has a stimulator in place to help with the pain. He is on scheduled methadone. 4. Tachycardia, resolved. 5. Hyperlipidemia, statin therapy. DISCHARGE CONDITION: Stable. Blood pressure is 114/80, heart rate is 75, respiratory rate is 16, O2 saturation on room air 95%, temperature is 36.6 Celsius. DISCHARGE MEDICATIONS: Please see the EMR. DISCHARGE INSTRUCTIONS: 1. Follow up with Gastroenterology. 2. Follow up with Urology. 3. Consider steroids with his PCP. 4. Also recommended him to try acupuncture and pool therapy to see if this helps with his chronic regional pain syndrome. Copy requested to: Dr. Villanueva /[id number]/MODL MTDD
--- NOTE | 2018-04-15 14:28 | ASMTLACE ---
MORALES Length of stay for Answers: 1 day current admission Acuity / Level of Answers: Yes Care: Did the patient have an inpatient admission? Comorbidities - select Answers: Opioid dependence all that apply / Chronic pain Other Notes: CRPS; Glossopharyngeal neuralgia; HLD; HTN # of Emergency department Answers: 3-4 visits in the last 6 months Score: 12 Date Signed: 04/15/2018 02:27 PM Electronically Signed By:Sarah Scherer RN
--- NOTE | 2018-04-15 14:33 | ASDISCHSUM ---
Discharge Information Plan Status:Home with No Needs Medically Cleared to Leave:04/15/2018 Discharge Date:04/15/2018 12:20 PM CM D/C Disposition:Home, Routine, Self-Care ADT D/C Disposition:Home, Routine, Self-Care Projected Discharge Date:04/15/2018 12:20 PM Transportation at D/C:Family Discharge Delay Reason: Follow-Up Date:04/15/2018 12:20 PM Discharge Slot:2 - 12:01 pm - 18:00 pm Final Diagnosis:Hemorrhagic cystitis w/ pyria, associated hematuria, diarrhea, regional pain syndrom e, tachycardia, hyperlipidemia, HTN, hypothyroid Placement Information Patient Contact Information Contact Name:NAIHD Relationship: Address:[address] City:[place] Alternate Phone: [facility]/Zip Code:[place] [address] Email: Financial Information Financial Class:HMO and PPO Plans Primary Plan Desc:[employer] Primary Plan Number:[id number] Secondary Plan Desc: Secondary Plan Number: Assessment Information LACE LACE Length of stay for Answers: 1 day current admission Acuity / Level of Answers: Yes Care: Did the patient have an inpatient admission? Comorbidities - select Answers: Opioid dependence all that apply / Chronic pain Other Notes: CRPS; Glossopharyngeal neuralgia; HLD; HTN # of Emergency department Answers: 3-4 visits in the last 6 months Score: 12 Date Signed: 04/15/2018 02:27 PM Electronically Signed By:Sarah Scherer RN [facility] Progress Note CM Note CM Note Notes: Patient admitted w blood in stool and urine. Has a recent hx of UTI and kidney stones - followed as outpt by Dr Villanueva. Now, he's been diagnosed w pyelonephritis. He is admitted for IV abx and pain control. Of note - patient has a pain specialist/contract as outpt. Lives independently with . I don't anticipate any d/c needs. Date Signed: 04/13/2018 12:09 PM Electronically Signed By:Latanya Mullins RN Case Management Discharge Plan Note Case Management Discharge Discharge Order Complete? Answers: Yes Patient to Obtain Answers: via Family Medications Transportation Arranged Answers: Family/Friends Transport will Pick (Date 04/15/2018 12:00 AM & Time) EMTALA Complete Answers: No Notes: N/A Case Management Transport Answers: No Notes: N/A Form Complete Faxed Final Orders Answers: No Notes: N/A Agency/Facility Transfer Answers: No Notes: N/A Report Printed & Faxed to Receiving Agency Family Notified Answers: Yes Notes: Pt to notify Discharge Comments Notes: Reviewed chart regarding discharge plan of care, pt's progress. Pt to discharge home independently with family support and no identified needs. NO IM/OSULLIVAN forms signed, not applicable. Pt to follow up as directed. CM available for any further issues or concerns. Discharge Plan: Home Independently Date Signed: 04/15/2018 02:32 PM Electronically Signed By:Sarah Scherer RN Intervention Information
== END 2018-04-15 12:20 | disposition home or self-care (01) | DRG 690 ==
LOC: F3E 19:38 → OBSVTOIN 04-13 14:38
PROVIDERS: ADMIT Internal Medicine; ATTEND Internal Medicine
DX: N30.81 Other cystitis with hematuria (principal); N12 Tubulo-interstitial nephritis, not specified as acute or chronic; G90.50 Complex regional pain syndrome I, unspecified; E86.9 Volume depletion, unspecified; R19.7 Diarrhea, unspecified; R00.0 Tachycardia, unspecified; E78.5 Hyperlipidemia, unspecified; I10 Essential (primary) hypertension; E03.9 Hypothyroidism, unspecified
CPT/HCPCS: 96365; G0378; J0696; J1885; J2405; J2930

== ENCOUNTER → 2018-05-13 | Outpatient (CLI) | payer OTHER | LOC: SBRMNEURO 20:00 | PROVIDERS: ATTEND Internal Medicine Sleep Medicine | DX: G47.31 Primary central sleep apnea (principal); G47.34 Idiopathic sleep related nonobstructive alveolar hypoventilation ==